=== PATIENT | female | born 1960 | race Caucasian/White ===

== ENCOUNTER 2016-07-25 10:09 | Emergency (ER) | payer SELFPAY ==
[~2016-07-25] VITALS: Ht 165.1 cm; Wt 65.9 kg
[~2016-07-25 10:09] MED LIST: CIPR500T4 PO; CYCL-36 PO
[2016-07-25 10:11] VITALS: BP 145/79; PULSE 88; RESP 20; TEMP 98.7; O2SAT 93
[2016-07-25] MEDS ORDERED: ATEN50TA PO (11:28)
[2016-07-25] MEDS ORDERED: LISI20TA PO (11:28)
[2016-07-25] MEDS ORDERED: LEVO50TA4 PO (11:28)
[2016-07-25] MEDS ORDERED: ALPR0.5T3 PO (11:28)
[2016-07-25] MEDS ORDERED: SODIUM CHLORIDE 0.9% FLUSH 5 ML FLUSH IVF PRN (11:30)
[2016-07-25 12:04] VITALS: O2SAT 95
[2016-07-25 12:06] LABS: AUTOMATED NEUTROPHIL # 2.9 TH/MM3 (1.8-7.7); BASOPHIL % 0.4 % (0.0-2.0); EOSINOPHIL % 0.6 % (0.0-4.0); HEMO FLAGS DIFF FINAL; LYMPH % 21.8 % (9.0-44.0); LYMPHOCYTE # 0.8 TH/MM3 (1.0-4.8); MEAN CELL VOLUME 93.8 FL (80.0-100.0); MEAN CORPUSCULAR HEMOGLOBIN 32.8 PG (27.0-34.0); MONO % 3.8 % (0.0-8.0); NEUT % 73.4 % (16.0-70.0); PLATELET COUNT 114 TH/MM3 (150-450); WHITE BLOOD COUNT 3.9 TH/MM3 (4.0-11.0)
--- NOTE | 2016-07-25 12:07 | PD ---
HPI Chief Complaint: Flank/Kidney Pain Time Seen by Provider: 11:39 Travel History International Travel<30 days: No Contact w/Intl Traveler<30days: No Traveled to known affect area: No History of Present Illness HPI 55-year-old female here with complaint of left-sided flank pain. For the last 5 days patient has had left-sided flank pain that radiates slightly into the left upper quadrant of the abdomen. No nausea, vomiting. She denies any urinary symptoms. Bowel movements have been regular. Patient states she was here around February 2016 and diagnosed with pyelonephritis and this feels fairly similar. She denies any history of ureterolithiasis. Pain is made worse with movement, patient does lift heavy boxes at work and this seems to be exacerbating her symptoms. No fevers or chills. PFSH Past Medical History Diminished Hearing: No Hepatitis: Yes (C) Hiatal Hernia: Yes Hypertension: Yes Thyroid Disease: Yes ?: Not Menopausal: Yes Past Surgical History Cholecystectomy: Yes Social History Alcohol Use: Yes (OCC) Tobacco Use: Yes Substance Use: No Allergies-Medications (Allergen,Severity, Reaction): Coded Allergies: Penicillin (Verified Allergy, Severe, Rash, 07/25/16) Reported Meds & Prescriptions Reported Meds & Active Scripts Active Reported Alprazolam 0.5 Mg Tab 0.5 Mg PO Q6H PRN Levothyroxine (Levothyroxine Sodium) 50 Mcg Tab 50 Mcg PO DAILY Atenolol 50 Mg Tab 50 Mg PO DAILY Lisinopril-Hctz 20-12.5 Mg Tab 1 Tab PO DAILY Review of Systems Except as stated in HPI: all other systems reviewed are Neg Physical Exam Narrative GENERAL: Thin female in no acute distress SKIN: Warm and dry. HEAD: Normocephalic. EYES: No scleral icterus. No injection or drainage. ENT: Mucous membranes pink and moist. NECK: Supple CARDIOVASCULAR: Regular rate and rhythm. No murmur appreciated. RESPIRATORY: No accessory muscle use. Clear to auscultation. Breath sounds equal bilaterally. GASTROINTESTINAL: Abdomen soft, non-tender, nondistended. Reproducible left- sided CVA tenderness to palpation, also made worse with movement. MUSCULOSKELETAL: No midline tenderness to palpation of the thoracic or lumbar spine. NEUROLOGICAL: Awake and alert. Normal speech. PSYCHIATRIC: Appropriate mood and affect; insight and judgment normal. Data Data Last Documented VS Vital Signs Date Time Temp Pulse Resp B/P Pulse Ox O2 Delivery O2 Flow Rate FiO2 07/25/16 12:04 95 07/25/16 10:11 98.7 88 20 145/79 Room Air Orders Complete Blood Count With Diff (07/25/16 11:23) Comprehensive Metabolic Panel (07/25/16 11:23) Lipase (07/25/16 11:23) Urinalysis - C+S If Indicated (07/25/16 11:23) Iv Access Insert/Monitor (07/25/16 11:23) Oximetry (07/25/16 11:23) Sodium Chloride 0.9% Flush (Ns Flush) (07/25/16 11:30) Ketorolac Inj (Toradol Inj) (07/25/16 12:15) Acetaminophen (Tylenol) (07/25/16 12:15) Labs Laboratory Tests Test 07/25/16 07/25/16 11:40 11:47 Urine Color YELLOW Urine Turbidity CLEAR Urine pH 7.5 Urine Specific [place] 1.018 Urine Protein NEG mg/dL Urine Glucose (UA) NEG mg/dL Urine Ketones NEG mg/dL Urine Occult Blood NEG Urine Nitrite NEG Urine Bilirubin NEG Urine Urobilinogen LESS THAN 2.0 MG/DL Urine Leukocyte Esterase NEG Urine RBC LESS THAN 1 /hpf Urine WBC LESS THAN 1 /hpf Urine Squamous Epithelial <1 /hpf Cells Microscopic Urinalysis Comment CULT NOT INDICATED White Blood Count 3.9 TH/MM3 Red Blood Count 4.80 MIL/MM3 Hemoglobin 15.8 GM/DL Hematocrit 45.0 % Mean Corpuscular Volume 93.8 FL Mean Corpuscular Hemoglobin 32.8 PG Mean Corpuscular Hemoglobin 35.0 % Concent Red Cell Distribution Width 15.0 % Platelet Count 114 TH/MM3 Mean Platelet Volume 8.3 FL Neutrophils (%) (Auto) 73.4 % Lymphocytes (%) (Auto) 21.8 % Monocytes (%) (Auto) 3.8 % Eosinophils (%) (Auto) 0.6 % Basophils (%) (Auto) 0.4 % Neutrophils # (Auto) 2.9 TH/MM3 Lymphocytes # (Auto) 0.8 TH/MM3 Monocytes # (Auto) 0.1 TH/MM3 Eosinophils # (Auto) 0.0 TH/MM3 Basophils # (Auto) 0.0 TH/MM3 CBC Comment DIFF FINAL Differential Comment Sodium Level 138 MEQ/L Potassium Level 3.5 MEQ/L Chloride Level 101 MEQ/L Carbon Dioxide Level 26.9 MEQ/L Anion Gap 10 MEQ/L Blood Urea Nitrogen 11 MG/DL Creatinine 0.76 MG/DL Estimat Glomerular Filtration 79 ML/MIN Rate Random Glucose 103 MG/DL Calcium Level 8.9 MG/DL Total Bilirubin 0.4 MG/DL Aspartate Amino Transf 44 U/L (AST/SGOT) Alanine Aminotransferase 14 U/L (ALT/SGPT) Alkaline Phosphatase 86 U/L Total Protein 7.5 GM/DL Albumin 3.7 GM/DL Lipase 165 U/L [facility] Medical Decision Making Medical Screen Exam Complete: Yes Emergency Medical Condition: Yes Medical Record Reviewed: Yes Differential Diagnosis 55-year-old female with 5 days of left-sided flank pain radiating slightly into the left upper quadrant. Differential includes ureterolithiasis, UTI/ pyelonephritis, musculoskeletal and less likely splenomegaly or and tripped abdominal pathology. Narrative Course Patient placed on monitor, IV established and blood obtained. Given Toradol, Tylenol. CBC, CMP, lipase, urinalysis obtained and unremarkable. We will treat with Tylenol, ibuprofen, Flexeril for musculoskeletal etiology. Diagnosis Primary Impression: Lumbar strain Qualified Code: S39.012A - Lumbar strain, initial encounter Referrals: Primary Care Physician as needed Additional Instructions: Tylenol, ibuprofen, Flexeril as needed. Follow-up with primary care provider symptoms persist and return to the ER for the warning signs discussed. Avoid heavy lifting. Med/Other Pt SpecificInfo: Prescription(s) given Scripts Cyclobenzaprine (Flexeril)10 Mg Tab10 Mg PO TID #15 TAB Ref 0 Prov:Zakiya Russell MD 07/25/16 Disposition: 01 DISCHARGE HOME Condition: Stable Zakiya Russell MD Jul 25, 2016 12:07
[2016-07-25 12:08] LABS: BLOOD, URINE NEG (NEG); GLUCOSE,URINE NEG (NEG); KETONE, URINE NEG (NEG); NITRITE,URINE NEG (NEG); PH, URINE 7.5 (5.0-8.5); SQUAMOUS EPITHELIAL CELL URINE <1 /hpf (0-5); URINE COLOR YELLOW (YELLW/STRAW)
[2016-07-25 12:11] LABS: COMMENT (UR) CULT NOT INDICATED; CULTURE IF INDICATED CULT NOT INDICATED
[2016-07-25] MEDS ORDERED: KETOROLAC TROMETHAMINE 30 MG/ML (IVP) VIAL IVP ONE (12:15)
[2016-07-25] MEDS ORDERED: ACETAMINOPHEN 500 MG CPLT PO ONE (12:15)
[2016-07-25 12:24] LABS: ANION GAP 10 MEQ/L (5-15); AST (GOT) 44 U/L (15-37); BICARBONATE 26.9 MEQ/L (21.0-32.0); BLOOD UREA NITROGEN 11 MG/DL (7-18); CHLORIDE 101 MEQ/L (98-107); GLOMERULAR FILTRATION RATE 79 ML/MIN (>89); POTASSIUM 3.5 MEQ/L (3.5-5.1); SODIUM (NA) 138 MEQ/L (136-145)
[2016-07-25 12:27] LABS: ALKALINE PHOSPHATASE 86 U/L (45-117); ALT (GPT) 14 U/L (10-53); TOTAL BILIRUBIN ADULT 0.4 MG/DL (0.2-1.0)
[2016-07-25] MEDS ORDERED: CYCL1TAB29 PO (12:43)
== END 2016-07-25 15:08 | disposition home or self-care (01) ==
LOC: NEPA 10:09
DX: S39.012A Strain of muscle, fascia and tendon of lower back, initial encounter (principal); I10 Essential (primary) hypertension; E07.9 Disorder of thyroid, unspecified; Z72.0 Tobacco use; Z86.19 Personal history of other infectious and parasitic diseases; X58.XXXA Exposure to other specified factors, initial encounter
CPT/HCPCS: 80053; 81001; 83690; 85025; 96374; 99284; J1885

== ENCOUNTER 2016-08-26 10:22 | Emergency (ER) | payer SELFPAY ==
[~2016-08-26] VITALS: Ht 165.1 cm; Wt 66.0 kg
[~2016-08-26 10:22] MED LIST changes: +ALPR0.5T3 PO; +ATEN50TA PO; -CIPR500T4 PO; -CYCL-36 PO; +CYCL1TAB29 PO; +LEVO50TA4 PO; +LISI20TA PO
[2016-08-26 10:24] VITALS: BP 156/97; PULSE 88; RESP 19; TEMP 97.6; O2SAT 95
[2016-08-26 10:56] VITALS: O2SAT 98
[2016-08-26] MEDS ORDERED: SODIUM CHLORIDE 0.9% FLUSH 10 ML FLUSH IV FLUSH PRN (11:00)
[2016-08-26] MEDS ORDERED: RESP: ALBUTEROL 2.5 MG/IPRATROPIUM 0.5 MG NEB (SCH) INH ONE ×2 (11:00→11:45)
[2016-08-26 11:09] LABS: AUTOMATED NEUTROPHIL # 2.8 TH/MM3 (1.8-7.7); BASOPHIL % 0.6 % (0.0-2.0); EOSINOPHIL # 0.1 TH/MM3 (0-0.4); EOSINOPHIL % 1.4 % (0.0-4.0); HEMATOCRIT 45.2 % (35.0-46.0); LYMPH % 44.4 % (9.0-44.0); LYMPHOCYTE # 2.6 TH/MM3 (1.0-4.8); MEAN CELL VOLUME 90.5 FL (80.0-100.0); MEAN CORPUSCULAR HEMOGLOBIN 31.6 PG (27.0-34.0); MEAN CORPUSCULAR HGB CONC 34.9 % (32.0-36.0); MONO % 4.7 % (0.0-8.0); NEUT % 48.9 % (16.0-70.0); PLATELET COUNT 87 TH/MM3 (150-450); RED BLOOD COUNT 4.99 MIL/MM3 (4.00-5.30); RED CELL DISTRIBUTION WIDTH 14.3 % (11.6-17.2); WHITE BLOOD COUNT 5.8 TH/MM3 (4.0-11.0)
[2016-08-26 11:14] LABS: HEMO FLAGS AUTO DIFF
[2016-08-26 11:18] LABS: BLOOD, URINE NEG (NEG); GLUCOSE,URINE NEG (NEG); KETONE, URINE NEG (NEG); NITRITE,URINE NEG (NEG); SQUAMOUS EPITHELIAL CELL URINE 1 /hpf (0-5); TRANSITIONAL EPI CELLS, URINE <1 /hpf; URINE COLOR LIGHT-YELLOW (YELLW/STRAW)
[2016-08-26 11:19] LABS: COMMENT (UR) CULT NOT INDICATED; CULTURE IF INDICATED CULT NOT INDICATED
--- NOTE | 2016-08-26 11:19 | PD ---
HPI Chief Complaint: Abdominal Pain Time Seen by Provider: 10:49 Travel History International Travel<30 days: No Contact w/Intl Traveler<30days: No Traveled to known affect area: No History of Present Illness HPI 55-year-old female with history of HTN, hepatitis C here with complaint of shortness of breath and abdominal pain. Patient states that she has been short of breath with primarily nonproductive cough and chest congestion for the last 2 weeks. Patient states that she has tried Mucinex without much improvement. Denies any history of underlying lung disease, COPD, CHF, etc. No associated fevers or chills. Additionally she notes 2 days of mild to moderate pain within the lower abdomen, describes this as pressure and fullness. No associated urinary, bowel symptoms. No vaginal bleeding or abnormal discharge. PFSH Past Medical History Anxiety: Yes Cardiovascular Problems: Yes (HTN) Diminished Hearing: No Hepatitis: Yes (C) Hiatal Hernia: Yes Hypertension: Yes Thyroid Disease: Yes Influenza Vaccination: No ?: Not Menopausal: Yes Past Surgical History Cholecystectomy: Yes Social History Alcohol Use: Yes (OCC) Tobacco Use: Yes Substance Use: No Allergies-Medications (Allergen,Severity, Reaction): Coded Allergies: Penicillin (Verified Allergy, Severe, Rash, 08/26/16) Reported Meds & Prescriptions Reported Meds & Active Scripts Active Reported Alprazolam 0.5 Mg Tab 0.5 Mg PO Q6H PRN Levothyroxine (Levothyroxine Sodium) 50 Mcg Tab 50 Mcg PO DAILY Atenolol 50 Mg Tab 50 Mg PO DAILY Lisinopril-Hctz 20-12.5 Mg Tab 1 Tab PO DAILY Review of Systems Except as stated in HPI: all other systems reviewed are Neg Physical Exam Narrative GENERAL: Well-appearing female in no acute distress SKIN: Focused skin assessment warm/dry. HEAD: Normocephalic. EYES: No scleral icterus. No injection or drainage. ENT: Mucous membranes pink and moist. NECK: Supple CARDIOVASCULAR: Regular rate and rhythm. No murmur appreciated. RESPIRATORY: No accessory muscle use. Expiratory wheezing GASTROINTESTINAL: Abdomen soft, mild tenderness to palpation of the lower abdomen without rebound or guarding MUSCULOSKELETAL: Normal gait NEUROLOGICAL: Awake and alert. Normal speech. PSYCHIATRIC: Appropriate mood and affect; insight and judgment normal. Data Data Last Documented VS Vital Signs Date Time Temp Pulse Resp B/P Pulse Ox O2 Delivery O2 Flow Rate FiO2 08/26/16 11:22 97 21 08/26/16 10:56 Room Air 08/26/16 10:24 97.6 88 19 156/97 Orders Complete Blood Count With Diff (08/26/16 10:55) Comprehensive Metabolic Panel (08/26/16 10:55) Lipase (08/26/16 10:55) Urinalysis - C+S If Indicated (08/26/16 10:55) Iv Access Insert/Monitor (08/26/16 10:55) Ecg Monitoring (08/26/16 10:55) Oximetry (08/26/16 10:55) Sodium Chloride 0.9% Flush (Ns Flush) (08/26/16 11:00) Electrocardiogram (08/26/16 10:55) Chest, Single Ap (08/26/16 10:55) Albuterol-Ipratropium Neb (Duoneb Neb) (08/26/16 11:00) Ct Pulmonary Angiogram (08/26/16 11:28) Ct Abd/Pel W Iv Contrast(Rout) (08/26/16 11:28) Albuterol-Ipratropium Neb (Duoneb Neb) (08/26/16 11:45) Iohexol 350 Inj (Omnipaque 350 Inj) (08/26/16 12:29) Case Management Consult (08/26/16 ) Labs Laboratory Tests Test 08/26/16 11:00 White Blood Count 5.8 TH/MM3 Red Blood Count 4.99 MIL/MM3 Hemoglobin 15.8 GM/DL Hematocrit 45.2 % Mean Corpuscular Volume 90.5 FL Mean Corpuscular Hemoglobin 31.6 PG Mean Corpuscular Hemoglobin 34.9 % Concent Red Cell Distribution Width 14.3 % Platelet Count 87 TH/MM3 Mean Platelet Volume 8.3 FL Neutrophils (%) (Auto) 48.9 % Lymphocytes (%) (Auto) 44.4 % Monocytes (%) (Auto) 4.7 % Eosinophils (%) (Auto) 1.4 % Basophils (%) (Auto) 0.6 % Neutrophils # (Auto) 2.8 TH/MM3 Lymphocytes # (Auto) 2.6 TH/MM3 Monocytes # (Auto) 0.3 TH/MM3 Eosinophils # (Auto) 0.1 TH/MM3 Basophils # (Auto) 0.0 TH/MM3 CBC Comment AUTO DIFF Differential Comment AUTO DIFF CONFIRMED Platelet Estimate LOW Platelet Morphology Comment NORMAL Red Cell Morphology Comment NORMAL Urine Color LIGHT-YELLOW Urine Turbidity HAZY Urine pH 6.0 Urine Specific [place] 1.014 Urine Protein NEG mg/dL Urine Glucose (UA) NEG mg/dL Urine Ketones NEG mg/dL Urine Occult Blood NEG Urine Nitrite NEG Urine Bilirubin NEG Urine Urobilinogen LESS THAN 2.0 MG/DL Urine Leukocyte Esterase NEG Urine RBC 1 /hpf Urine WBC 1 /hpf Urine Squamous Epithelial 1 /hpf Cells Urine Transitional Epithelial <1 /hpf Cells Microscopic Urinalysis Comment CULT NOT INDICATED Sodium Level 136 MEQ/L Potassium Level 4.3 MEQ/L Chloride Level 101 MEQ/L Carbon Dioxide Level 25.5 MEQ/L Anion Gap 10 MEQ/L Blood Urea Nitrogen 22 MG/DL Creatinine 0.78 MG/DL Estimat Glomerular Filtration 77 ML/MIN Rate Random Glucose 89 MG/DL Calcium Level 11.8 MG/DL Protein Corrected Calcium 10.9 MG/DL Total Bilirubin 0.4 MG/DL Aspartate Amino Transf 252 U/L (AST/SGOT) Alanine Aminotransferase 27 U/L (ALT/SGPT) Alkaline Phosphatase 138 U/L Total Protein 8.6 GM/DL Albumin 4.1 GM/DL Lipase 151 U/L [facility] Medical Decision Making Medical Screen Exam Complete: Yes Emergency Medical Condition: Yes Medical Record Reviewed: Yes Differential Diagnosis 55-year-old female here with 2 complaints. First she has had 2 weeks of shortness of breath with nonproductive cough. Some wheezing on exam. Patient is a smoker though denies known history of emphysema. Differential includes COPD, viral syndrome, pneumonia, bronchitis. Less likely new onset heart failure. Secondly she complains of 2 days of low pressure within the abdomen. All examination overall is benign making peritoneal pathology less likely. Differential includes UTI, diverticulitis, colitis, appendicitis. Narrative Course Patient placed on monitor, IV established and blood obtained. Patient given DuoNeb 2. Twelve-lead EKG showed sinus rhythm without notable ST abnormalities , normal intervals. Portable chest x-ray obtained that by my read shows right sided lung mass, radiologist measuring this approximately 7 cm. Given this PE is also on the differential. Therefore CT pulmonary angiogram and CT of the abdomen and pelvis with contrast were obtained showing perihilar mass and no evidence of PE or other metastatic lesions. On exam patient does have a supraclavicular node on the right that is concerning for possible metastasis. CBC, CMP, lipase, urinalysis notable for hypercalcemia mild. I spoke with radiology and case management was consulted and will coordinate outpatient CT- guided biopsy and mandatory referral was placed for heme on follow-up as well. Diagnosis Primary Impression: Lung mass Additional Impression: Shortness of breath Referrals: Oncologist call for appointment Patient Instructions: General Instructions, Lung Cancer (DC), Needle Biopsy of the Lung (DC) Additional Instructions: Albuterol as needed for shortness of breath. Follow-up for CT-guided biopsy of the lung mass as discussed with case management. Med/Other Pt SpecificInfo: Prescription(s) given Scripts Albuterol 18 GM Inh (Ventolin Hfa 18 GM Inh)90 Mcg/Act Aer2 Puff INH Q4H PRN ( SHORTNESS OF BREATH) #1 INHALER Ref 0 Prov:Zakiya Russell MD 08/26/16 Disposition: 01 DISCHARGE HOME Condition: Stable Zakiya Russell MD Aug 26, 2016 11:19
[2016-08-26 11:22] VITALS: O2SAT 97
--- NOTE | 2016-08-26 11:28 | RADRPT ---
EXAM DATE/TIME: 08/26/2016 11:04 [facility] COMPARISON: No previous studies available for comparison. INDICATIONS : Short of breath for 2 weeks, wheezing, pain in middle of chest, abdominal pain, smoker for 40 years MEDICAL HISTORY : Hepatitis C. Hiatal hernia. Hypertension. SURGICAL HISTORY : Cholecystectomy. ENCOUNTER: Initial ACUITY: 2 weeks PAIN SCORE: 4/10 LOCATION: Bilateral chest FINDINGS: There is enlarged mass present in the right infrahilar region. Left lung is clear. The heart and pul monary vascularity are normal. The portion of the bony skeleton visualized is unremarkable. CONCLUSION: Large 7 cm hilar mass on the right. CT scan of the chest with contrast is suggested. Bebeto Ramirez MD FACR on August 26, 2016 at 11:24 Board Certified Radiologist. This report was verified electronically.
[2016-08-26 11:36] LABS: BICARBONATE 25.5 MEQ/L (21.0-32.0); CALCIUM-PROTEIN CORRECTED 10.9 MG/DL (8.5-10.1); POTASSIUM 4.3 MEQ/L (3.5-5.1); TOTAL BILIRUBIN ADULT 0.4 MG/DL (0.2-1.0)
[2016-08-26] MEDS ORDERED: IOHEXOL 350 MG/ML 10 ML VIAL (for RAD DIAG) IV ONE (12:29)
[2016-08-26 12:40] LABS: PLATELET ESTIMATE SMEAR LOW (NORMAL); PLATELET MORPHOLOGY NORMAL (NORMAL); SCAN/DIFF AUTO DIFF CONFIRMED
--- NOTE | 2016-08-26 12:43 | RADRPT ---
EXAM DATE/TIME: 08/26/2016 12:22 [facility] COMPARISON: CT ABDOMEN & PELVIS W/O CONTRAST, February 25, 2016, 14:14. INDICATIONS : Short of breath. IV CONTRAST: 64 cc Omnipaque 350 (iohexol) IV ; Cumulative dose for multiple exams. RADIATION DOSE: 23.18 CTDIvol (mGy) MEDICAL HISTORY : Hypertension. Hernia, hiatal. Hepatitis C. SURGICAL HISTORY : None. ENCOUNTER: Initial ACUITY: 1 day PAIN SCALE: 0/10 LOCATION: chest TECHNIQUE: Volumetric scanning of the chest was performed using a pulmonary embolism protocol MIP images were re constructed. Using automated exposure control and adjustment of the mA and/or kV according to patien t size, radiation dose was kept as low as reasonably achievable to obtain optimal diagnostic quality images. FINDINGS: The examination is of good diagnostic quality. No pulmonary embolus is identified. The examination demonstrates a 7.1 x 8.8 cm mass arising from the right suprahilar region with extens ion into the mediastinum and subcarinal rosendo chain. There are numerous large nodes seen within the a nterior mediastinum. There is rosendo disease filling the AP window. Findings are highly suspicious for malignancy. The pulmonary parenchyma is otherwise clear. No pleural effusion is seen. The visualized bony structures demonstrate degenerative changes but are otherwise intact. The limited portions of upper abdomen visualized are unremarkable. CONCLUSION: 1. There is a 7.1 x 8.8 cm right suprahilar and mediastinal mass with extensive prevascular, AP windo w and anterior mediastinal adenopathy. Findings are highly suspicious for malignancy. 2. No pulmonary embolus identified. Nasir Ramirze MD on August 26, 2016 at 12:38 Board Certified Radiologist. This report was verified electronically.
[2016-08-26] MEDS ORDERED: VENTAER INH (12:55)
[2016-08-26] MEDS ORDERED: ALBU.5I NEB (12:59)
[2016-08-26] MEDS ORDERED: NEBULIZER1 MI1 (12:59)
[2016-08-26] MEDS ORDERED: ACETAMINOPHEN/HYDROcodone 325 MG/5 MG TAB PO ONE (13:00)
--- NOTE | 2016-08-26 13:16 | RADRPT ---
EXAM DATE/TIME: 08/26/2016 12:22 [facility] COMPARISON: CT PULMONARY ANGIOGRAM, August 26, 2016, 12:22. INDICATIONS : Lower quadrant abdominal pain. IV CONTRAST: 64 cc Omnipaque 350 (iohexol) IV ; Cumulative dose for multiple exams. ORAL CONTRAST: No oral contrast ingested. RADIATION DOSE: 6.18 CTDIvol (mGy) MEDICAL HISTORY : Hypertension. Hernia, hiatal. Hepatitis C. SURGICAL HISTORY : None. ENCOUNTER: Initial ACUITY: 1 day PAIN SCALE: 5/10 LOCATION: Bilateral lower quadrant TECHNIQUE: Volumetric scanning of the abdomen and pelvis was performed. Using automated exposure control and ad justment of the mA and/or kV according to patient size, radiation dose was kept as low as reasonably achievable to obtain optimal diagnostic quality images. FINDINGS: The lung bases are clear. Liver, spleen, pancreas, adrenals and kidneys are unremarkable. There is a small cyst measuring 1 cm in the left kidney. There is no ascites or adenopathy. Pelvic contents are unremarkable. Review of bone windows reveals degenerative changes in the lumbar spine. CONCLUSION: 1. Negative CT scan of the abdomen and pelvis. I do not see an etiology for the patient's lower quad rant abdominal pain. 2. Abnormal L4 vertebral body, non-specific. Bebeto Ramirez MD FACR on August 26, 2016 at 12:48 Board Certified Radiologist. This report was verified electronically.
[2016-08-26 13:25] VITALS: BP 154/90
--- NOTE | 2016-08-27 14:29 | EKG ---
Date Performed: 08/26/2016 Time Performed: 11:19:15 PTAGE: 55 years EKG: Sinus rhythm NORMAL ECG NO PREVIOUS TRACING DOCTOR: Geraldo Bhatti Interpretating Date/Time 08/27/2016 14:25:12
== END 2016-08-26 13:40 | disposition home or self-care (01) ==
LOC: NEPD 10:22
DX: R91.8 Other nonspecific abnormal finding of lung field (principal); R06.02 Shortness of breath; R10.30 Lower abdominal pain, unspecified; R05 Cough; R06.2 Wheezing; I10 Essential (primary) hypertension; E07.9 Disorder of thyroid, unspecified; Z72.0 Tobacco use; Z86.19 Personal history of other infectious and parasitic diseases; Z86.79 Personal history of other diseases of the circulatory system; Z86.59 Personal history of other mental and behavioral disorders
CPT/HCPCS: 71010; 71275; 74177; 80053; 81001; 83690; 85025; 93005; 94640; 94664; 99285; Q9967

== ENCOUNTER 2016-09-09 08:04 | Inpatient (IN) | payer SELFPAY ==
[~2016-09-09] VITALS: Ht 165.1 cm; Wt 62.5 kg
[2016-09-09] VITALS (9 sets, daily range): BP systolic 97–173; BP diastolic 56–104; PULSE 70–101; RESP 19–28; TEMP 96.3–97.6; O2SAT 96–99
[~2016-09-09 08:04] MED LIST changes: +ALBU.5I NEB; -CYCL1TAB29 PO; +NEBULIZER1 MI1; +VENTAER INH
[2016-09-09 08:20] LABS: MEAN CORPUSCULAR HGB CONC 36.4 % (32.0-36.0)
[2016-09-09] MEDS ORDERED: SODIUM CHLORIDE 0.9% FLUSH 10 ML FLUSH IVF PRN (08:30)
[2016-09-09] MEDS ORDERED: methylPREDNISolone SOD SUCC 125 MG/2 ML VIAL IVP ONE (08:30)
[2016-09-09] MEDS: RESP: ALBUTEROL 2.5 MG/IPRATROPIUM 0.5 MG NEB (SCH) INH ×2 (08:31→08:32)
[2016-09-09 08:37] LABS: BASOPHIL % 0.9 % (0.0-2.0); EOSINOPHIL # 0.1 TH/MM3 (0-0.4); EOSINOPHIL % 1.3 % (0.0-4.0); HEMATOCRIT 34.3 % (35.0-46.0); LYMPH % 56.2 % (9.0-44.0); MEAN CELL VOLUME 89.5 FL (80.0-100.0); MEAN CORPUSCULAR HEMOGLOBIN 32.6 PG (27.0-34.0); MONO % 3.6 % (0.0-8.0); PLATELET COUNT 73 TH/MM3 (150-450); RED BLOOD COUNT 3.83 MIL/MM3 (4.00-5.30); RED CELL DISTRIBUTION WIDTH 13.8 % (11.6-17.2); WHITE BLOOD COUNT 5.3 TH/MM3 (4.0-11.0)
[2016-09-09 08:38] LABS: HEMO FLAGS AUTO DIFF
--- NOTE | 2016-09-09 08:38 | RADRPT ---
EXAM DATE/TIME: 09/09/2016 08:29 [facility] COMPARISON: CHEST SINGLE AP, August 26, 2016, 11:04. CT PULMONARY ANGIOGRAM, August 26, 2016, 12:22. INDICATIONS : Shortness of breath and chest pain. MEDICAL HISTORY : Chronic obstructive pulmonary disease. SURGICAL HISTORY : None. ENCOUNTER: Initial ACUITY: 2 days PAIN SCORE: 10/10 LOCATION: Bilateral chest FINDINGS: Significant mediastinum adenopathy and right hilar mass is identified with tiny lung nodules not sign ificantly changed. CONCLUSION: No appreciable change. Dimitri Mills MD on September 09, 2016 at 8:35 Board Certified Radiologist. This report was verified electronically.
--- NOTE | 2016-09-09 08:43 | PD ---
HPI Chief Complaint: Respiratory Distress Time Seen by Provider: 08:15 Travel History International Travel<30 days: No Contact w/Intl Traveler<30days: No Traveled to known affect area: No History of Present Illness HPI 55-year-old female presents with shortness of breath and chest pain that has been present over the past month that is worsened over the past couple of days. She states her breathing treatments used to help her but now they do not. She states she just got diagnosed about a month ago with likely lung cancer and is awaiting a biopsy with her oncologist Dr. hand. She states she has not started chemotherapy yet. She states that she also just got diagnosed with emphysema. She states that she hasn't been having any fevers or other concurrent complaints. She feels worse when she moves around. She denies other modifying factors. PFSH Past Medical History Anxiety: Yes Cardiovascular Problems: Yes (HTN) Diminished Hearing: No Hepatitis: Yes (C) Hiatal Hernia: Yes Hypertension: Yes Respiratory: Yes Thyroid Disease: Yes Menopausal: Yes Past Surgical History Cholecystectomy: Yes Social History Alcohol Use: Yes (OCC) Tobacco Use: Yes Substance Use: No Allergies-Medications (Allergen,Severity, Reaction): Coded Allergies: Penicillin (Verified Allergy, Severe, Rash, 08/26/16) Reported Meds & Prescriptions Reported Meds & Active Scripts Active Nebulizer 1 Mis Mis 1 Ea .ROUTE DIRECTED Albuterol Neb (Albuterol Sulfate) 2.5 Mg/0.5 Ml Neb 2.5 Mg NEB TID NEB PRN Note: The Albuterol Sulfate Inhalation Solution is concentrated and must be diluted. Read complete instructions carefully before using. Ventolin Hfa 18 GM Inh (Albuterol Sulfate) 90 Mcg/Act Aer 2 Puff INH Q4H PRN Reported Alprazolam 0.5 Mg Tab 0.5 Mg PO Q6H PRN Levothyroxine (Levothyroxine Sodium) 50 Mcg Tab 50 Mcg PO DAILY Atenolol 50 Mg Tab 50 Mg PO DAILY Lisinopril-Hctz 20-12.5 Mg Tab 1 Tab PO DAILY Review of Systems Except as stated in HPI: all other systems reviewed are Neg Physical Exam Narrative GENERAL: Well-nourished, well-developed patient. SKIN: Warm and dry. HEAD: Normocephalic and atraumatic. EYES: No injection or drainage. ENT: No nasal drainage noted. NECK: Supple, trachea midline. CARDIOVASCULAR: Regular rate and rhythm RESPIRATORY: decreased aeration bilaterally. No accessory muscle use. tachypnea noted GASTROINTESTINAL: Abdomen soft, non-tender, nondistended. EXTREMITIES: No edema. NEUROLOGICAL: Awake and alert. Motor and sensory grossly within normal limits. Normal speech. Data Data Last Documented VS Vital Signs Date Time Temp Pulse Resp B/P Pulse Ox O2 Delivery O2 Flow Rate FiO2 09/09/16 08:31 97 Nasal Cannula 2.00 09/09/16 08:15 93 24 156/83 09/09/16 08:08 97.6 Orders Electrocardiogram (09/09/16 ) Complete Blood Count With Diff (09/09/16 08:18) Comprehensive Metabolic Panel (09/09/16 08:18) B-Type Natriuretic Peptide (09/09/16 08:18) Act Partial Throm Time (Ptt) (09/09/16 08:18) Prothrombin Time / Inr (Pt) (09/09/16 08:18) Magnesium (Mg) (09/09/16 08:18) Ckmb (Isoenzyme) Profile (09/09/16 08:18) Troponin I (09/09/16 08:18) Iv Access Insert/Monitor (09/09/16 08:18) Ecg Monitoring (09/09/16 08:18) Oximetry (09/09/16 08:18) Chest, Single Ap (09/09/16 08:18) Sodium Chloride 0.9% Flush (Ns Flush) (09/09/16 08:30) Ct Pulmonary Angiogram (09/09/16 08:24) Methylprednisolone So Succ Inj (Solumedr (09/09/16 08:30) Albuterol-Ipratropium Neb (Duoneb Neb) (09/09/16 08:30) CKMB (09/09/16 08:21) CKMB% (09/09/16 08:21) Iohexol 350 Inj (Omnipaque 350 Inj) (09/09/16 09:47) Place In Observation (09/09/16 ) Vital Signs (Adult) Q4H (09/09/16 10:44) Activity Oob With Assistance (09/09/16 10:44) Diet Regular Basic (09/09/16 Lunch) Sodium Chloride 0.9% Flush (Ns Flush) (09/09/16 10:45) Sodium Chloride 0.9% Flush (Ns Flush) (09/09/16 21:00) Ondansetron Inj (Zofran Inj) (09/09/16 10:45) Basic Metabolic Panel (Bmp) (09/10/16 06:00) Complete Blood Count With Diff (09/10/16 06:00) Enoxaparin Inj (Lovenox Inj) (09/09/16 10:45) Naloxone Inj (Narcan Inj) (09/09/16 10:45) Admit Order (Ed Use Only) (09/09/16 10:46) Methylprednisolone So Succ Inj (Solumedr (09/09/16 12:00) Albuterol-Ipratropium Neb (Duoneb Neb) (09/09/16 12:00) Albuterol-Ipratropium Neb (Duoneb Neb) (09/09/16 11:00) Labs Laboratory Tests Test 09/09/16 08:21 White Blood Count 5.3 TH/MM3 Red Blood Count 3.83 MIL/MM3 Hemoglobin 12.5 GM/DL Hematocrit 34.3 % Mean Corpuscular Volume 89.5 FL Mean Corpuscular Hemoglobin 32.6 PG Mean Corpuscular Hemoglobin 36.4 % Concent Red Cell Distribution Width 13.8 % Platelet Count 73 TH/MM3 Mean Platelet Volume 8.0 FL Neutrophils (%) (Auto) 38.0 % Lymphocytes (%) (Auto) 56.2 % Monocytes (%) (Auto) 3.6 % Eosinophils (%) (Auto) 1.3 % Basophils (%) (Auto) 0.9 % Neutrophils # (Auto) 2.0 TH/MM3 Lymphocytes # (Auto) 3.0 TH/MM3 Monocytes # (Auto) 0.2 TH/MM3 Eosinophils # (Auto) 0.1 TH/MM3 Basophils # (Auto) 0.0 TH/MM3 CBC Comment AUTO DIFF Differential Total Cells 100 Counted Neutrophils % (Manual) 24 % Band Neutrophils % 7 % Lymphocytes % 52 % Monocytes % 9 % Neutrophils # (Manual) 2.1 TH/MM3 Metamyelocytes 5 % Myelocytes 3 % Nucleated Red Blood Cells 7 /100 WBC Differential Comment FINAL DIFF MANUAL Platelet Estimate LOW Platelet Morphology Comment NORMAL Red Cell Morphology Comment NORMAL Prothrombin Time 11.3 SEC Prothromb Time International 1.0 RATIO Ratio Activated Partial 23.5 SEC Thromboplast Time Sodium Level 133 MEQ/L Potassium Level 3.4 MEQ/L Chloride Level 97 MEQ/L Carbon Dioxide Level 26.6 MEQ/L Anion Gap 9 MEQ/L Blood Urea Nitrogen 20 MG/DL Creatinine 0.67 MG/DL Estimat Glomerular Filtration 91 ML/MIN Rate Random Glucose 85 MG/DL Calcium Level 8.5 MG/DL Magnesium Level 1.7 MG/DL Total Bilirubin 0.5 MG/DL Aspartate Amino Transf 348 U/L (AST/SGOT) Alanine Aminotransferase 34 U/L (ALT/SGPT) Alkaline Phosphatase 165 U/L Total Creatine Kinase 872 U/L Creatine Kinase MB 0.7 NG/ML Creatine Kinase MB % 0.1 % Troponin I LESS THAN 0.02 NG/ML B-Type Natriuretic Peptide 32 PG/ML Total Protein 7.8 GM/DL Albumin 3.6 GM/DL MDM Medical Decision Making Medical Screen Exam Complete: Yes Emergency Medical Condition: Yes Medical Record Reviewed: Yes (pmh confirmed) Interpretation(s) CBC & BMP Diagram 09/09/16 08:21 Last [address] Angiography 09/09/16823 Signed Impressions: Service Date/Time: Friday, September 09, 2016 09:34 - CONCLUSION: 1. There is no evidence for PE for technique. 2. Complete occlusion of the right upper lobe pulmonary artery due to extrinsic mass effect from metastatic adenopathy. There is also slight compromise to the right lower lobe pulmonary artery. 3. Multiple lung nodules characteristic of metastatic disease. 4. Extensive metastatic adenopathy within the mediastinum, right supraclavicular area and possible small metastatic lymph nodes in the gastroesophageal junction and upper abdomen. 5. Right hilar mass difficult to separate from the above-mentioned adenopathy may be the site of the patient's primary malignancy. Dimitri Mills MD Chest X-Ray 09/09/16817 Signed Impressions: Service Date/Time: Friday, September 09, 2016 08:29 - CONCLUSION: No appreciable change. Dimitri Mills MD Differential Diagnosis pneumonia, copd, anemia, renal failure, pe.... Narrative Course will check labs, imaging and dose with solumedrol and duonebs and reeval patient updated, still with tachypnea, wheezing and 92% on room air. We'll discuss with her oncologist Patient agrees to observation Physician Communication Physician Communication dr christianson agrees to admit dr hand gave history and agrees to observation Diagnosis Primary Impression: Shortness of breath Additional Impressions: COPD (chronic obstructive pulmonary disease) Qualified Code: J44.1 - Chronic obstructive pulmonary disease with acute exacerbation Lung mass Admitting Information Admitting Physician Requests: Observation Christy Amato MD Sep 09, 2016 08:43
[2016-09-09 08:44] LABS: APTT (PATIENT) 23.5 SEC (24.3-30.1); PROTHROMBIN TIME - PATIENT 11.3 SEC (9.8-11.6)
[2016-09-09 08:58] LABS: ALT (GPT) 34 U/L (10-53); ANION GAP 9 MEQ/L (5-15); AST (GOT) 348 U/L (15-37); BICARBONATE 26.6 MEQ/L (21.0-32.0); BLOOD UREA NITROGEN 20 MG/DL (7-18); CHLORIDE 97 MEQ/L (98-107); GLOMERULAR FILTRATION RATE 91 ML/MIN (>89); MAGNESIUM 1.7 MG/DL (1.5-2.5); POTASSIUM 3.4 MEQ/L (3.5-5.1); SODIUM (NA) 133 MEQ/L (136-145)
[2016-09-09 09:03] LABS: ALKALINE PHOSPHATASE 165 U/L (45-117); CREATINE KINASE 872 U/L (26-192); TOTAL BILIRUBIN ADULT 0.5 MG/DL (0.2-1.0)
[2016-09-09 09:16] LABS: CKMB 0.7 NG/ML (0.5-3.6)
[2016-09-09 09:23] LABS: BANDS 7 % (0-6); CORRECTED NUCLEATED RBC 7 /100 WBC (0-0); METAMYELOCYTES 5 % (0-1); MYELOCYTES 3 % (0-0); NEUTROPHIL # MANUAL DIFF 2.1 TH/MM3 (1.8-7.7); POLYS (SEG NEUTROPHILS) 24 % (16-70); WBC DIFF SAMPLE 100
[2016-09-09 09:24] LABS: PLATELET ESTIMATE SMEAR LOW (NORMAL); PLATELET MORPHOLOGY NORMAL (NORMAL); SCAN/DIFF FINAL DIFF MANUAL
[2016-09-09] MEDS ORDERED: IOHEXOL 350 MG/ML 10 ML VIAL (for RAD DIAG) IV ONE (09:47)
--- NOTE | 2016-09-09 10:07 | RADRPT ---
EXAM DATE/TIME: 09/09/2016 09:34 [facility] COMPARISON: CT PULMONARY ANGIOGRAM, August 26, 2016, 12:22. CHEST SINGLE AP, September 09, 2016, 8:29. INDICATIONS : Short of breath, evaluate for pulmonary embolism. IV CONTRAST: 59 cc Omnipaque 350 (iohexol) IV RADIATION DOSE: 8.03 CTDIvol (mGy) MEDICAL HISTORY : Hypertension. Hepatitis C. Carcinoma, lung. SURGICAL HISTORY : Cholecystectomy. ENCOUNTER: Initial ACUITY: 1 day PAIN SCALE: 2/10 LOCATION: chest TECHNIQUE: Volumetric scanning of the chest was performed using a pulmonary embolism protocol MIP images were re constructed. Using automated exposure control and adjustment of the mA and/or kV according to patien t size, radiation dose was kept as low as reasonably achievable to obtain optimal diagnostic quality images. FINDINGS: There is extensive right supraclavicular adenopathy the largest one measures 3.2 cm in size bk acteristic of metastatic disease. There is extensive adenopathy within the mediastinum including the superior mediastinum, AP window the largest area measures 9.4 cm probably conglomerate metastatic martin nopathy in pretracheal area and partially right hilar mass. Approximate 3.8 cm lymph node is seen in subcarinal area with matted adenopathy and/or mass in the right hilum. Multiple lung nodules are pres ent bilaterally the largest on the right measures 8 mm in size characteristic of metastatic disease. There is no evidence for PE for technique. There is however almost complete occlusion of the right up per lobe pulmonary artery due to extrinsic mass effect from the above-mentioned adenopathy with mild to moderate stenosis of the right pulmonary artery. There are a few small subcentimeter lymph nodes i n the region of the gastroesophageal junction and upper abdomen indeterminant, however could be metas tatic as well. CONCLUSION: 1. There is no evidence for PE for technique. 2. Complete occlusion of the right upper lobe pulmonary artery due to extrinsic mass effect from meta static adenopathy. There is also slight compromise to the right lower lobe pulmonary artery. 3. Multiple lung nodules characteristic of metastatic disease. 4. Extensive metastatic adenopathy within the mediastinum, right supraclavicular area and possible sm all metastatic lymph nodes in the gastroesophageal junction and upper abdomen. 5. Right hilar mass difficult to separate from the above-mentioned adenopathy may be the site of the patient's primary malignancy. Dimitri Mills MD on September 09, 2016 at 9:58 Board Certified Radiologist. This report was verified electronically.
[2016-09-09] MEDS ORDERED: SODIUM CHLORIDE 0.9% FLUSH 10 ML FLUSH IV FLUSH PRN (10:45)
[2016-09-09] MEDS ORDERED: NALOXONE HCL 0.4 MG/ML AMP IV PRN (10:45)
[2016-09-09] MEDS ORDERED: ONDANSETRON HCL 4 MG/2 ML VIAL IVP PRN (10:45)
[2016-09-09] MEDS ORDERED: ALPRAZolam 0.5 MG TAB PO PRN (11:00)
[2016-09-09] MEDS ORDERED: PILL SPLITTER OTHER PRN (11:15)
[2016-09-09] MEDS: POTASSIUM CHLORIDE 10 MEQ CONTROLLED RELEASE TAB PO SCH ×2 (11:19→22:16)
[2016-09-09] MEDS: RESP: ALBUTEROL 2.5 MG/IPRATROPIUM 0.5 MG NEB (SCH) NEB ×3 (11:39→20:26)
[2016-09-09] MEDS ORDERED: HYDR-4107 PO (12:34)
[2016-09-09] MEDS: ENOXAPARIN SODIUM 40 MG/0.4 ML SYRINGE SQ SCH (12:35)
--- NOTE | 2016-09-09 14:41 | HP.UPD ---
H&P Update Note This is a 55 year-old female who quit smoking recently. She has what appears to be metastatic malignancy involving at least her lungs, right supraclavicular region, lumbar spine. She was brought into the emergency department at [facility] for difficulty breathing. She was seen by the undersigned in room 710. She was ordered to have IV steroids, IV analgesics, supplemental oxygen and tranquilizers. She is due to have a biopsy of her right supraclavicular lymphadenopathy next week which is to take place during this admission. Her oncologist Dr. Frey is consulted. Full history and physical to follow Tanner Valdez MD Sep 09, 2016 14:38
[2016-09-09] MEDS: SERTRALINE HCL 50 MG TAB PO SCH ×2 (14:45→18:56)
[2016-09-09] MEDS ORDERED: ALPRAZolam 0.25 MG TAB PO PRN (14:45)
--- NOTE | 2016-09-09 15:09 | HHI.HP ---
[facility] Chema Carrillo, DO Admission Diagnosis lung cancer, copd exacerbation Diagnoses: Chief Complaint: sob, wheezing, back and leg pain, weakness Travel History International Travel<30 Days: No Contact w/Intl Traveler <30 Da: No Traveled to Known Affected Are: No History of Present Illness This is an unfortunate 55-year-old female with significant past medical history of tobacco abuse, hepatitis C recently treated, hypothyroid, hypertension. Patient has been recently diagnosed with a lung mass, with possible bone metastases. Approximately a month ago, she started to complain of low back pain when she went to the emergency room had a CT scan done that showed a large mediastinal mass and right supraclavicular mass as well as a L4 lesion. She followed up with Dr. Frey who has ordered further workup to include lymph node biopsy, PET scan and brain MRI. Patient states she has been having back pain, radiating to legs associated with weakness. Since yesterday, the pain has become severe, she is not sleeping well. She's had very little appetite has had some nausea and vomiting. She recently quit smoking and possibly has underlying COPD. She's noted increased wheezing with cough but very little sputum. She's had chills but no fever. Patient presented to the emergency room for further evaluation. In the emergency room, patient was evaluated, laboratory workup was completed. CBC was remarkable for thrombocytopenia, platelets 73. BMP remarkable for mild hyponatremia, sodium 133, potassium 3.4. AST 348, ALT 34, alkaline phosphatase was 65. Total creatinine kinase A 72. Natruretic peptide 32. A CTA was completed that showed no evidence of PE however complete occlusion of right upper lobe pulmonary artery due to extrinsic mass effect from metastatic adenopathy. There is also slight compromise to the right lower lobe pulmonary artery. Multiple lung nodules characteristics of metastatic disease. Extensive metastatic adenopathy within the mediastinum, right supraclavicular area and possibly small metastatic lymph nodes in the GE junction and upper abdomen. Right heel or mass difficult to separate from the above-mentioned adenopathy may be the site of the patient's primary malignancy. A chest x-ray didn't show any appreciable change. Patient was given DuoNeb's and IV steroids. She's now examined, she is complaining of pain, is very anxious. She is complaining of pain radiating from her left axilla done to the left hand and has some numbness and tingling of the left hand pinky finger and fourth finger. Indicates that sometimes his symptoms are worse when she turns her head to the right. She denies any recent injury. She has some mild neck discomfort. She is noted with weakness to the lower extremities, right leg is weaker than left. She has been having trouble walking around. Patient is now admitted for further evaluation and treatment. Review of Systems Constitutional: COMPLAINS OF: Chills, Change in appetite, DENIES: Diaphoretic episodes, Fatigue, Fever, Weight gain, Weight loss, Dizziness, Night Sweats Endocrine: DENIES: Abnorml menstrual pattern, Heat/cold intolerance, Polydipsia , Polyuria, Polyphagia Eyes: DENIES: Blurred vision, Diplopia, Eye inflammation, Eye pain, Vision loss , Photosensitivity, Double Vision Ears, nose, mouth, throat: DENIES: Tinnitus, Hearing loss, Vertigo, Nasal discharge, Oral lesions, Throat pain, Hoarseness, Ear Pain, Running Nose, Epistaxis, Sinus Pain, Toothache, Odynophagia Respiratory: COMPLAINS OF: Cough, Wheezing, Sputum production, Shortness of breath, DENIES: Apneas, Snoring, Hemoptysis Cardiovascular: DENIES: Chest pain, Palpitations, Syncope, Dyspnea on Exertion , PND, Lower Extremity Edema, Orthopnea, Claudication Gastrointestinal: DENIES: Abdominal pain, Black stools, Bloody stools, Constipation, Diarrhea, Nausea, Vomiting, Difficulty Swallowing, Anorexia Genitourinary: DENIES: Abnormal vaginal bleeding, Dysmenorrhea, Dyspareunia, Sexual dysfunction, Urinary frequency, Urinary incontinence, Urgency, Hematuria , Dysuria, Nocturia, Vaginal discharge Musculoskeletal: COMPLAINS OF: Joint pain, Back pain, Neck pain Integumentary: DENIES: Abnormal pigmentation, Pruritus, Rash, Nail changes, Breast masses, Breast skin changes, Nipple discharge Hematologic/lymphatic: DENIES: Bruising, Lymphadenopathy Immunologic/allergic: DENIES: Eczema, Urticaria Neurologic: COMPLAINS OF: Abnormal gait, Localized weakness, Paresthesias, DENIES: Headache, Seizures, Speech Problems, Tremor, Poor Balance Psychiatric: COMPLAINS OF: Anxiety, DENIES: Confusion, Mood changes, Depression, Hallucinations, Agitation, Suicidal Ideation, Homicidal Ideation, Delusions Past Family Social History Past Medical History HTN Hep C underwent treatment Feb 2016 to May 2016, was told that last lab did not show hep C. Was seeing Dr. Blevins Hypothyroid Anxiety COPD Tobacco abuse ETOH abuse Hiatal hernia Past Surgical History Cholecystectomy Right shoulder surgery Right ankle surgery Liver biopsy 2011 Colonoscopy 2009 Reported Medications Reported Meds & Active Scripts Active Nebulizer 1 Mis Mis 1 Ea .ROUTE DIRECTED Albuterol Neb (Albuterol Sulfate) 2.5 Mg/0.5 Ml Neb 2.5 Mg NEB TID NEB PRN Note: The Albuterol Sulfate Inhalation Solution is concentrated and must be diluted. Read complete instructions carefully before using. Ventolin Hfa 18 GM Inh (Albuterol Sulfate) 90 Mcg/Act Aer 2 Puff INH Q4H PRN Reported Hydrocodone-Acetaminophen 5-300 Mg Tab 1 Tab PO Q6H PRN Alprazolam 0.5 Mg Tab 0.5 Mg PO Q6H PRN Levothyroxine (Levothyroxine Sodium) 50 Mcg Tab 50 Mcg PO DAILY Atenolol 50 Mg Tab 50 Mg PO DAILY Lisinopril-Hctz 20-12.5 Mg Tab 1 Tab PO DAILY Allergies: Coded Allergies: Penicillin (Verified Allergy, Severe, Rash, 08/26/16) Active Ordered Medications Inpatient Medications Albuterol/ Ipratropium (Duoneb Neb) 1 ampule Q4HR NEB PRN NEB SHORTNESS OF BREATH; Start 09/09/16 at 11:00 Alprazolam (Xanax) 0.25 mg Q4H PRN PO anxiety; Start 09/09/16 at 14:45 Atenolol (Tenormin) 50 mg DAILY PO ; Start 09/09/16 at 15:00 Clonidine (Catapres) 0.1 mg Q6H PRN PO SBP>160, DBP>90; Start 09/09/16 at 14:00 Enoxaparin Sodium (Lovenox Inj) 40 mg Q24H SQ Last administered on 09/09/16t 12 :35; Start 09/09/16 at 12:00 Fentanyl (Duragesic 50 Mcg Patch.72 Hr) 1 patch Q3D T-DERMAL ; Start 09/09/16 at 16:00 Hydrochlorothiazide (Hydrodiuril) 12.5 mg DAILY PO ; Start 09/10/16 at 09:00; Stop 09/10/16 at 09:00; Status DC Hydrochlorothiazide (Microzide) 12.5 mg DAILY PO ; Start 09/09/16 at 15:00 Hydromorphone HCl (Dilaudid Pf Inj) 0.5 mg Q3H PRN IV PUSH pain 4-10; Start at 14:45; Status UNV Levothyroxine Sodium (Synthroid) 50 mcg DAILY@0600 PO ; Start 09/10/16 at 06:00 Lisinopril (Prinivil) 20 mg DAILY PO ; Start 09/09/16 at 15:00 Methylprednisolone Sodium Succinate (SoluMEDROL INJ) 125 mg Q6H IV PUSH ; Start 09/09/16 at 14:00 Miscellaneous (Pill Splitter) 1 ea UNSCH PRN OTHER SEE LABEL COMMENTS; Start at 11:15 Naloxone HCl (Narcan Inj) 0.4 mg UNSCH PRN IV SEE LABEL COMMENTS; Start at 10:45 Ondansetron HCl (Zofran Inj) 4 mg Q6H PRN IVP NAUSEA OR VOMITING; Start at 10:45 Potassium Chloride (KCl) 30 meq Q12HR PO Last administered on 09/09/16t 11:19; Start 09/09/16 at 11:00 Sertraline HCl (Zoloft) 25 mg DAILY PO ; Start 09/09/16 at 14:45; Status UNV Sodium Chloride (NS Flush) 2 ml BID IV FLUSH ; Start 09/09/16 at 21:00 Family History Mother alive, lives in [place], hx dementia Father , poss. lung cancer Social History Lives with significant other, has 3 grown children. Smokes 1 ppd x 40 years, occ. smokes 1 cigarette, quit a few days ago. Used to drink heavily, one bottle of wine or more per week, last drink 3 months ago. No substance abuse. Was working at a factory. Physical Exam Vital Signs Vital Signs Date Time Temp Pulse Resp B/P Pulse Ox O2 Delivery O2 Flow Rate FiO2 09/09/16 13:30 96.3 100 27 173/100 96 09/09/16 12:35 100 22 155/91 96 Nasal Cannula 2 09/09/16 08:31 97 Nasal Cannula 2.00 09/09/16 08:15 93 24 156/83 99 Nasal Cannula 2 09/09/16 08:13 93 24 96 Nasal Cannula 2 09/09/16 08:08 97.6 93 28 170/87 96 Physical Exam GENERAL: This is a well-nourished, well-developed patient, in no apparent distress. SKIN: No rashes, ecchymoses or lesions. Cool and dry. HEAD: Atraumatic. Normocephalic. No temporal or scalp tenderness. EYES: Pupils equal round and reactive. Extraocular motions intact. No scleral icterus. No injection or drainage. ENT: Nose without bleeding, purulent drainage or septal hematoma. Throat without erythema, tonsillar hypertrophy or exudate. Uvula midline. Airway patent. NECK: Trachea midline. Right supraclavicular lymphadenopathy. Supple, nontender , no meningeal signs. CARDIOVASCULAR: Regular rate and rhythm without murmurs, gallops, or rubs. RESPIRATORY: Diffuse coarse ronchi and wheezing. GASTROINTESTINAL: Abdomen soft, non-tender, nondistended. No hepato-splenomegaly , or palpable masses. No guarding. MUSCULOSKELETAL: Extremities without clubbing, cyanosis, or edema. No joint tenderness, effusion, or edema noted. No calf tenderness. Negative Homans sign bilaterally. NEUROLOGICAL: Awake, oriented x 3. Right lower extremity weaker than left 3-4/5 , LLE 4/5. BUE 5/5. C/O tingling left hand pinky and 4th phalanx. Laboratory Laboratory Tests Test 09/09/16 08:21 White Blood Count 5.3 Red Blood Count 3.83 Hemoglobin 12.5 Hematocrit 34.3 Mean Corpuscular Volume 89.5 Mean Corpuscular Hemoglobin 32.6 Mean Corpuscular Hemoglobin 36.4 Concent Red Cell Distribution Width 13.8 Platelet Count 73 Mean Platelet Volume 8.0 Neutrophils (%) (Auto) 38.0 Lymphocytes (%) (Auto) 56.2 Monocytes (%) (Auto) 3.6 Eosinophils (%) (Auto) 1.3 Basophils (%) (Auto) 0.9 Neutrophils # (Auto) 2.0 Lymphocytes # (Auto) 3.0 Monocytes # (Auto) 0.2 Eosinophils # (Auto) 0.1 Basophils # (Auto) 0.0 CBC Comment AUTO DIFF Differential Total Cells 100 Counted Neutrophils % (Manual) 24 Band Neutrophils % 7 Lymphocytes % 52 Monocytes % 9 Neutrophils # (Manual) 2.1 Metamyelocytes 5 Myelocytes 3 Nucleated Red Blood Cells 7 Differential Comment FINAL DIFF MANUAL Platelet Estimate LOW Platelet Morphology Comment NORMAL Red Cell Morphology Comment NORMAL Prothrombin Time 11.3 Prothromb Time International 1.0 Ratio Activated Partial 23.5 Thromboplast Time Sodium Level 133 Potassium Level 3.4 Chloride Level 97 Carbon Dioxide Level 26.6 Anion Gap 9 Blood Urea Nitrogen 20 Creatinine 0.67 Estimat Glomerular Filtration 91 Rate Random Glucose 85 Calcium Level 8.5 Magnesium Level 1.7 Total Bilirubin 0.5 Aspartate Amino Transf 348 (AST/SGOT) Alanine Aminotransferase 34 (ALT/SGPT) Alkaline Phosphatase 165 Total Creatine Kinase 872 Creatine Kinase MB 0.7 Creatine Kinase MB % 0.1 Troponin I LESS THAN 0.02 B-Type Natriuretic Peptide 32 Total Protein 7.8 Albumin 3.6 Result Diagram: 09/09/1682009/09/16820 Assessment and Plan Problem List: (1) COPD (chronic obstructive pulmonary disease) (2) Lung mass Plan: Poss. lung cancer with mets to bone. (3) Shortness of breath (4) Thrombocytopenia (5) Hx of hepatitis C (6) HTN (hypertension) Assessment and Plan Admit to Dr. Valdez 55-year-old female with recent findings of lung mass with possible bone metastases, presented to emergency room with shortness of breath, wheezing, increasing back pain and leg weakness. COPD exacerbation Continue with supplemental oxygen to keep sats greater than 92 Continue with IV Solu-Medrol 125 mg IV every 6. -Continue with scheduled DuoNeb's and when necessary treatments as well Lung mass with bone metastases. Patient currently undergoing workup, has not started chemotherapy. -CTA of the chest completed, results are noted. -Consult Dr. Frey for evaluation, possibly patient can have lymph node biopsy while she is hospitalized. -We will order MRI of the brain to rule out metastases Back pain, possibly secondary to bone metastases. Also complaining of neck pain with radiculopathy to left hand. Bilaterally leg weakness, left greater than right. -Patient will be started on pain management with fentanyl patch and Dilaudid when necessary by mouth -Physical therapy for evaluation -Cervical spine MRI ordered. Hypokalemia Replace potassium Thrombocytopenia Monitor her platelets Elevated AST and alkaline phosphatase, history hepatitis C recently completed treatment. -Monitor LFTs -Avoid hepatotoxic agents Hypothyroid Continue home medications Hypertension, stable Continue home medications Tobacco abuse, recently quit -Tobacco abuse counseling completed, patient states that she is only smoking maybe 1 cigarette a day. Does not want have a nicotine patch. Home medications are reviewed, initiated as indicated SCDs and Lovenox for DVT prophylaxis PPI for GI prophylaxis Condition guarded. Plan of care has been discussed with the patient, attending and registered nurse. Further management of the patient will be dependent on the hospital course This patient was seen by myself and Dr. Valdez, this H&P is written on his behalf Physician Certification 2 Midnight Certification Type: Admission for Inpatient Services Order for Inpatient Services The services are ordered in accordance with Medicare regulations or non- Medicare payer requirements, as applicable. In the case of services not specified as inpatient-only, they are appropriately provided as inpatient services in accordance with the 2-midnight benchmark. Estimated LOS (days): 2 2 days is the estimated time the patient will need to remain in the hospital, assuming treatment plan goals are met and no additional complications. Post-Hospital Plan: Not yet determined Problem Qualifiers (1) COPD (chronic obstructive pulmonary disease): Qualified Code: J44.1 - Chronic obstructive pulmonary disease with acute exacerbation (2) HTN (hypertension): Qualified Code: I10 - Essential hypertension Eliza Aguilera Sep 09, 2016 15:09
[2016-09-09] MEDS: fentaNYL 50 MCG/HR PATCH T-DERMAL SCH (15:11)
[2016-09-09] MEDS: methylPREDNISolone SOD SUCC 125 MG/2 ML VIAL IV PUSH SCH ×2 (15:11→22:15)
[2016-09-09] MEDS: HYDROmorphone HCL PF 1 MG/ML VIAL IV PUSH PRN ×2 (15:12→22:16)
[2016-09-09] MEDS ORDERED: GADODIAMIDE PF 287 MG/ML 10 ML VIAL (for RAD MRI) IV ONE (16:10)
--- NOTE | 2016-09-09 17:12 | RADRPT ---
EXAM DATE/TIME: 09/09/2016 15:35 [facility] COMPARISON: No previous studies available for comparison. INDICATIONS : Metastatic disease. CONTRAST: 10 cc Omniscan (gadodiamide) IV MEDICAL HISTORY : Carcinoma, lung. Hepatitis C. SURGICAL HISTORY : Cholecystectomy. Orthopaedic surgies ENCOUNTER: Initial ACUITY: 1 day PAIN SCORE: 0/10 LOCATION: cranial TECHNIQUE: Multiplanar, multisequence MRI of the brain was performed both prior to and following the administrat ion of paramagnetic contrast. FINDINGS: CEREBRUM: The ventricles are normal for age. No evidence of midline shift, mass lesion, hemorrhage or acute in farction. No extraaxial fluid collections are seen. The pituitary gland and suprasellar cistern are normal in configuration. WHITE MATTER: No significant signal abnormalities are seen in the white matter. POSTERIOR FOSSA: The cerebellum and brainstem are intact. The 4th ventricle is midline. The cerebellopontine angle is unremarkable. The cerebellar tonsils are normal in position. DIFFUSION IMAGING: No focal areas of restricted diffusion are seen. No evidence of acute infarction. EXTRACRANIAL: The visualized portions of the orbits and paranasal sinuses are unremarkable. POST-CONTRAST: No abnormal areas of parenchymal or dural enhancement. No evidence of blood-brain barrier breakdown. CONCLUSION: Negative exam. No findings of metastatic disease. Alan Gates MD on September 09, 2016 at 17:09 Board Certified Radiologist. This report was verified electronically.
--- NOTE | 2016-09-09 17:57 | RADRPT ---
EXAM DATE/TIME: 09/09/2016 15:35 [facility] COMPARISON: CT PULMONARY ANGIOGRAM, September 09, 2016, 9:34. INDICATIONS : Metastatic disease. CONTRAST: 10 cc Omniscan (gadodiamide) IV MEDICAL HISTORY : Carcinoma, lung. Hepatitis C. SURGICAL HISTORY : Cholecystectomy. Orthopaedic surgeries ENCOUNTER: Initial ACUITY: 1 day PAIN SCORE: 0/10 LOCATION: Paraspinal TECHNIQUE: Multiplanar, multisequence MRI examination of the cervical spine was performed. FINDINGS: The spinal cord appears intact with technique. There is extensive adenopathy in the mediastinum, righ t supraclavicular area discussed on the patient's prior chest CT. There is slight inhomogeneity of th e marrow with mild enhancement at C4, C6 and C7 could be due to degenerative change, however early me tastatic disease is difficult to exclude at this time. There is inhomogeneity of the marrow involving the lamina of C2 on the left near the facet suspicious for early metastatic disease. C2-C3: No appreciable compromise to the thecal sac, exiting nerve roots are seen. The neural forami na are patent bilaterally. No appreciable thecal sac stenosis is seen. C3-C4: No appreciable compromise to the thecal sac, exiting nerve roots are seen. The neural forami na are patent bilaterally. No appreciable thecal sac stenosis is seen. C4-C5: No appreciable compromise to the thecal sac, exiting nerve roots are seen. The neural forami na are patent bilaterally. No appreciable thecal sac stenosis is seen. C5-C6: Moderate overall thecal sac stenosis is seen due to bulging disc and hypertrophic changes slig htly flattening the anterior portion of the spinal cord. C6-C7: No appreciable compromise to the thecal sac, exiting nerve roots are seen. The neural foramin a are patent bilaterally. No appreciable thecal sac stenosis is seen. C7-T1: No appreciable compromise to the thecal sac, exiting nerve roots are seen. The neural foramin a are patent bilaterally. No appreciable thecal sac stenosis is seen. CONCLUSION: 1. Moderate thecal sac stenosis C5-6. 2. Findings are suspicious for metastatic disease particularly involving the C2 lamina on the left si de and possibly within some of the vertebrae as well. Dimitri Mills MD on September 09, 2016 at 17:48 Board Certified Radiologist. This report was verified electronically.
[2016-09-09] MEDS: LISINOPRIL 20 MG TAB PO SCH (18:55)
[2016-09-09] MEDS: ATENOLOL 50 MG TAB PO SCH (18:55)
[2016-09-09] MEDS: HYDROCHLOROTHIAZIDE 12.5 MG CAP PO SCH (18:55)
--- NOTE | 2016-09-09 19:35 | EKG ---
Date Performed: 09/09/2016 Time Performed: 08:14:17 PTAGE: 55 years EKG: Sinus rhythm Compared to prior tracing no significant change NORMAL ECG PREVIOUS TRACING : 08/26/2016 11.19 DOCTOR: Marcos Rodriguez Interpretating Date/Time 09/09/2016 19:33:05
--- NOTE | 2016-09-09 21:12 | MB ---
cc: SHYAM CORONA MD DATE OF CONSULTATION 09/09/16 REASON FOR CONSULTATION Oncology consulted to render opinion regarding patient with lung mass suspicious for lung cancer. HISTORY OF PRESENT ILLNESS Patient is a very pleasant 55-year-old female with long history of tobacco use and alcohol use who presented to the emergency room in early July with complaint of increased low back pain. She also noticed an increased cough and dyspnea on exertion. She was given muscle relaxant with no improvement. She went back to the emergency room again in early August and CT showed a large mediastinal mass with right supraclavicular mass with L4 lesion on CT scan. I saw her in clinic last week. She us supposed to go get a PET scan and biopsy of lung mass. However, over last two days she has increased shortness of breath. She was still able to work up until yesterday. She had difficulty breathing. She has a nonproductive cough. Denies any fever or chills. She also had pain in the anterior chest wall. She also complained of pain in the low back radiating down bilateral lower extremities. She has continued to loose weight. Denies any headache. Denies any visual changes. She has some numbness of left fourth and fifth fingers. Denies any nausea, vomiting, abdominal pain, denied dysuria or hematuria. PAST MEDICAL HISTORY 1. Hypertension, 2. Hypothyroidism, 3. Anxiety, 4. Hepatitis C. PAST SURGICAL HISTORY 1. Right ankle surgery 2. Right shoulder surgery 3. Colonoscopy to 2011 4. Liver biopsy to 2009. FAMILY HISTORY Two sons and a daughter, all healthy. SOCIAL HISTORY Smoked a pack a day for 40 years. She drinks about five drinks a day. 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 ALLERGIES PENICILLIN MEDICATIONS Current, 1. Atenolol. 2. Lisinopril. 3. Hydrochlorothiazide 4. Levothyroxine. 5. Fentanyl patch. 6. Zoloft 7. Solu-Medrol. 8. Lovenox. REVIEW OF SYSTEMS She has lost more than 10 pounds. EYES: Denies any blurry vision, double vision. ENT: No mouth sores or voice changes. CARDIOVASCULAR: Denies any chest pressure or palpitation RESPIRATORY: As above. GI: Denies any nausea, vomiting, diarrhea or abdominal pain. : Denies dysuria or hematuria. MUSCULOSKELETAL: As above. HEMATOLOGIC: Negative. ENDOCRINE: Negative DERMATOLOGY: Negative. PSYCHIATRIC: Negative. NEUROLOGIC: As above. PHYSICAL EXAMINATION VITAL SIGNS: Temperature 96.6, blood pressure 151/104, O2 saturation 96% 2 liters nasal cannula. GENERAL: She is alert and oriented x3 in no acute distress. HEENT: Atraumatic, normocephalic. Pupils equal, round and reactive to light. Extraocular muscles intact. No scleral icterus. Oropharynx moist mucosa. No lesion or thrush. No mucositis. NECK: No thyromegaly. No palpable masses. LYMPHATICS: No palpable cervical, clavicular, axillary or inguinal lymph node CARDIOVASCULAR: Regular S1-S2 no murmur. LUNGS: Clear to auscultation left side, decreased breath sounds on the right ABDOMEN: Soft, nontender. I could not palpate liver or spleen. EXTREMITIES: No cyanosis, clubbing or edema. BACK: A little tender in low back. SKIN: No rash or petechiae. NEUROLOGIC: Deep tendon reflexes on the left patella is a 3 and 2+ on the right patella LABORATORY DATA Reviewed ASSESSMENT 1. Large mediastinal mass with supraclavicular adenopathy worrisome for primary lung cancer. She has more than 40 pack year of tobacco use. When she first presented to emergency room two weeks ago, CT showed 7.1 x 8.1 cm right suprahilar and mediastinal mass with extensive prevascular adenopathy. There was right supraclavicular adenopathy. CT abdomen and pelvis also showed L4 vertebral lesion. She developed hypercalcemia and was treated with Zometa recently. She is supposed to go get a biopsy next Monday. However, she developed increased shortness of breath and weakness. A repeat CT angiogram did not show any pulmonary embolism. However, there is a complete occlusion of right upper lobe pulmonary artery due to the mass/ adenopathy and there was also partial compromise of the right lower lobe pulmonary artery with multiple lung nodules characteristic of metastatic disease. There was extensive metastatic adenopathy within mediastinum, right suprahilar area and possible small metastatic adenopathy in gastroesophageal junction and upper abdomen. There was also a large right hilar mass contiguous with the mediastinal adenopathy. I suspect she may have metastatic small-cell lung carcinoma which is a very aggressive disease. I am going to consult radiology for biopsy on Monday. We may have to keep her in the hospital and start treatment as soon as we establish the diagnosis. 2. Hypercalcemia which I think is due to bone metastasis. CT abdomen and pelvis showed L4 vertebral lesions. Her alkaline phosphatase was elevated. She also had back pain. She was given Zometa and her calcium level has trended down to normal. 3. Back pain and hip pain related to the bone metastasis. She is supposed to have a PET scan done next week for further evaluation. 4. Neck pain and numbness of her left arm. She had a brain MRI which did not show any metastatic disease. However, MRI of the cervical spine showed moderate thecal sac stenosis at C5 and C6. There were findings suspicious for metastatic disease involving C2 lamina on the left side. 5. Tobacco dependence. She just quit. 6. Alcohol abuse. She drinks up to five shots a day. She also stopped drinking a few days ago. 7. History of Hepatitis C. She was treated recently. 8. Thrombocytopenia which I think may be due to underlying liver disease. Continue to monitor the platelet count. 9. Hypothyroidism. PLAN 1. Extensive discussion with the patient and her significant other 2. Consult radiology for biopsy of lung mass. 3. She will get PET scan as outpatient. 4. Due to the aggressive nature of her disease, we may have to keep her in the hospital until a diagnosis is established. If it is a small cell lung carcinoma, I would treat her with palliative chemotherapy in the hospital. 5. She will also need port placement for chemotherapy administration. Thank you, Dr. Valdez, for asking me to see this patient. We will follow with you. Shyam Corona MD [place]/ /7:11 PM /8:51 PM [place]
[2016-09-09] MEDS: SODIUM CHLORIDE 0.9% FLUSH 10 ML FLUSH IV FLUSH SCH (22:17)
[2016-09-09] MEDS: SODIUM CHLOR 0.9% 1000 ML INJ 1,000 ML IV SCH (22:18)
[2016-09-10] VITALS (8 sets, daily range): BP systolic 121–156; BP diastolic 74–104; PULSE 82–98; RESP 18–20; TEMP 96–96.4; O2SAT 93–96
[2016-09-10] MEDS: HYDROmorphone HCL PF 1 MG/ML VIAL IV PUSH PRN ×3 (03:27→16:44)
[2016-09-10] MEDS: methylPREDNISolone SOD SUCC 125 MG/2 ML VIAL IV PUSH SCH ×4 (03:27→19:58)
[2016-09-10] MEDS: LEVOTHYROXINE SODIUM 50 MCG TAB PO SCH (04:54)
[2016-09-10 07:36] LABS: AUTOMATED NEUTROPHIL # 2.8 TH/MM3 (1.8-7.7); BASOPHIL % 0.5 % (0.0-2.0); EOSINOPHIL % 0.4 % (0.0-4.0); HEMATOCRIT 33.9 % (35.0-46.0); LYMPH % 53.3 % (9.0-44.0); LYMPHOCYTE # 3.6 TH/MM3 (1.0-4.8); MEAN CELL VOLUME 90.8 FL (80.0-100.0); MEAN CORPUSCULAR HEMOGLOBIN 31.3 PG (27.0-34.0); MEAN CORPUSCULAR HGB CONC 34.5 % (32.0-36.0); MONO % 4.9 % (0.0-8.0); NEUT % 40.9 % (16.0-70.0); PLATELET COUNT 57 TH/MM3 (150-450); RED BLOOD COUNT 3.74 MIL/MM3 (4.00-5.30); WHITE BLOOD COUNT 6.8 TH/MM3 (4.0-11.0)
[2016-09-10 07:44] LABS: HEMO FLAGS AUTO DIFF
[2016-09-10 08:15] LABS: BICARBONATE 21.6 MEQ/L (21.0-32.0); INDIRECT BILIRUBIN 0.5 MG/DL (0.0-0.8); TOTAL BILIRUBIN ADULT 0.7 MG/DL (0.2-1.0)
[2016-09-10] MEDS: RESP: ALBUTEROL 2.5 MG/IPRATROPIUM 0.5 MG NEB (SCH) NEB ×4 (08:15→20:37)
[2016-09-10 08:16] LABS: POTASSIUM 5.3 MEQ/L (3.5-5.1)
[2016-09-10] MEDS: HYDROCHLOROTHIAZIDE 12.5 MG CAP PO SCH (08:55)
[2016-09-10] MEDS: POTASSIUM CHLORIDE 10 MEQ CONTROLLED RELEASE TAB PO SCH (08:55)
[2016-09-10] MEDS: LISINOPRIL 20 MG TAB PO SCH (08:55)
[2016-09-10] MEDS: ATENOLOL 50 MG TAB PO SCH (08:55)
[2016-09-10] MEDS: SERTRALINE HCL 50 MG TAB PO SCH (08:55)
[2016-09-10] MEDS ORDERED: LISINOPRIL 20 MG TAB PO SCH (09:00)
[2016-09-10] MEDS ORDERED: ATENOLOL 50 MG TAB PO SCH (09:00)
[2016-09-10] MEDS ORDERED: HYDROCHLOROTHIAZIDE 25 MG TAB PO SCH (09:00)
[2016-09-10 09:19] LABS: BANDS 10 % (0-6); CORRECTED NUCLEATED RBC 2 /100 WBC (0-0); EOSINOPHILS 1 % (0-4); METAMYELOCYTES 1 % (0-1); MYELOCYTES 3 % (0-0); NEUTROPHIL # MANUAL DIFF 2.6 TH/MM3 (1.8-7.7); POLYS (SEG NEUTROPHILS) 24 % (16-70); WBC DIFF SAMPLE 100
[2016-09-10 09:20] LABS: PLATELET ESTIMATE SMEAR LOW (NORMAL); PLATELET MORPHOLOGY NORMAL (NORMAL); SCAN/DIFF FINAL DIFF MANUAL
--- NOTE | 2016-09-10 12:18 | PD.ONC.PN ---
Subjective Subjective Remarks Afebrile overnight. Pt resting in bed asleep on approach. Awakens easily to verbal stimuli. She reports breathing better today. She is on 3L NC. Objective Data Date Time Temp Pulse Resp B/P Pulse Ox O2 Delivery O2 Flow Rate FiO2 09/10/16 09:40 16 09/10/16 08:15 95 Nasal Cannula 3.00 09/10/16 08:00 96.0 95 18 142/83 94 09/10/16 04:00 96.0 96 19 156/104 95 09/10/16 00:00 96.4 93 18 144/94 96 09/09/16 20:55 101 09/09/16 20:28 98 Nasal Cannula 3.00 09/09/16 20:00 96.6 88 19 161/94 96 09/09/16 17:00 96.6 92 24 151/104 96 09/09/16 13:30 96.3 100 27 173/100 96 09/09/16 12:35 100 22 155/91 96 Nasal Cannula 2 Result Diagram: 09/10/16 0655 09/10/16 0655 Laboratory Results Laboratory Tests Test 09/10/16 06:55 White Blood Count 6.8 TH/MM3 Red Blood Count 3.74 MIL/MM3 Hemoglobin 11.7 GM/DL Hematocrit 33.9 % Mean Corpuscular Volume 90.8 FL Mean Corpuscular Hemoglobin 31.3 PG Mean Corpuscular Hemoglobin 34.5 % Concent Red Cell Distribution Width 14.0 % Platelet Count 57 TH/MM3 Mean Platelet Volume 8.3 FL Neutrophils (%) (Auto) 40.9 % Lymphocytes (%) (Auto) 53.3 % Monocytes (%) (Auto) 4.9 % Eosinophils (%) (Auto) 0.4 % Basophils (%) (Auto) 0.5 % Neutrophils # (Auto) 2.8 TH/MM3 Lymphocytes # (Auto) 3.6 TH/MM3 Monocytes # (Auto) 0.3 TH/MM3 Eosinophils # (Auto) 0.0 TH/MM3 Basophils # (Auto) 0.0 TH/MM3 CBC Comment AUTO DIFF Differential Total Cells 100 Counted Neutrophils % (Manual) 24 % Band Neutrophils % 10 % Lymphocytes % 55 % Monocytes % 6 % Eosinophils % 1 % Neutrophils # (Manual) 2.6 TH/MM3 Metamyelocytes 1 % Myelocytes 3 % Nucleated Red Blood Cells 2 /100 WBC Differential Comment FINAL DIFF MANUAL Platelet Estimate LOW Platelet Morphology Comment NORMAL Sodium Level 132 MEQ/L Potassium Level 5.3 MEQ/L Chloride Level 99 MEQ/L Carbon Dioxide Level 21.6 MEQ/L Anion Gap 11 MEQ/L Blood Urea Nitrogen 22 MG/DL Creatinine 0.69 MG/DL Estimat Glomerular Filtration 88 ML/MIN Rate Random Glucose 123 MG/DL Calcium Level 8.0 MG/DL Total Bilirubin 0.7 MG/DL Direct Bilirubin 0.2 MG/DL Indirect Bilirubin 0.5 MG/DL Aspartate Amino Transf 885 U/L (AST/SGOT) Alanine Aminotransferase 50 U/L (ALT/SGPT) Alkaline Phosphatase 335 U/L Total Protein 7.9 GM/DL Albumin 3.5 GM/DL Imaging Studies Last Impressions CT Angiography 09/09/16823 Signed Impressions: Service Date/Time: Friday, September 09, 2016 09:34 - CONCLUSION: 1. There is no evidence for PE for technique. 2. Complete occlusion of the right upper lobe pulmonary artery due to extrinsic mass effect from metastatic adenopathy. There is also slight compromise to the right lower lobe pulmonary artery. 3. Multiple lung nodules characteristic of metastatic disease. 4. Extensive metastatic adenopathy within the mediastinum, right supraclavicular area and possible small metastatic lymph nodes in the gastroesophageal junction and upper abdomen. 5. Right hilar mass difficult to separate from the above-mentioned adenopathy may be the site of the patient's primary malignancy. Dimitri Mills MD Chest X-Ray 09/09/16817 Signed Impressions: Service Date/Time: Friday, September 09, 2016 08:29 - CONCLUSION: No appreciable change. Dimitri Mills MD Cervical Spine MRI 09/09/16 0000 Signed Impressions: Service Date/Time: Friday, September 09, 2016 15:35 - CONCLUSION: 1. Moderate thecal sac stenosis C5-6. 2. Findings are suspicious for metastatic disease particularly involving the C2 lamina on the left side and possibly within some of the vertebrae as well. Dimitri Mills MD Brain MRI 09/09/16 0000 Signed Impressions: Service Date/Time: Friday, September 09, 2016 15:35 - CONCLUSION: Negative exam. No findings of metastatic disease. Alan Gates MD Administered Medications Medications (Trade) Dose Ordered Sig/Price Route PRN Reason Start Time Stop Time Status Last Admin Dose Admin Sodium Chloride (NS Flush) 2 ml BID IV FLUSH 09/09/16 21:00 09/09/16 22:17 Enoxaparin Sodium (Lovenox Inj) 40 mg Q24H SQ 09/09/16 12:00 09/09/16 12:35 Methylprednisolone Sodium Succinate (SoluMEDROL INJ) 125 mg Q6H IV PUSH 09/09/16 14:00 09/10/16 08:55 Levothyroxine Sodium (Synthroid) 50 mcg DAILY@0600 PO 09/10/16 06:00 09/10/16 04:54 Potassium Chloride (KCl) 30 meq Q12HR PO 09/09/16 11:00 09/10/16 08:55 Atenolol (Tenormin) 50 mg DAILY PO 09/09/16 15:00 09/10/16 08:55 Hydrochlorothiazide (Microzide) 12.5 mg DAILY PO 09/09/16 15:00 09/10/16 08:55 Lisinopril (Prinivil) 20 mg DAILY PO 09/09/16 15:00 09/10/16 08:55 Hydromorphone HCl (Dilaudid Pf Inj) 0.5 mg Q3H PRN IV PUSH pain 4-10 09/09/16 14:45 09/10/16 09:03 Fentanyl (Duragesic 50 Mcg Patch.72 Hr) 1 patch Q3D T-DERMAL 09/09/16 16:00 09/09/16 15:11 Alprazolam (Xanax) 0.25 mg Q4H PRN PO anxiety 09/09/16 14:45 09/10/16 09:03 Sertraline HCl 25 mg 25 mg DAILY PO 09/09/16 14:45 09/10/16 08:55 Sodium Chloride (NS 1000 ml Inj) 1,000 ml @ 42 mls/hr [id number] IV 09/09/16 15:30 09/09/16 22:18 Objective Remarks GENERAL: Chronically ill appearing female in no acute distress. SKIN: Warm and dry. HEAD: Normocephalic. EYES: No injection or drainage. NECK: Supple, trachea midline. +R side JVD. CARDIOVASCULAR: +S1/s2. RESPIRATORY: Wheezing bilaterally, R lung nieto diminished. GASTROINTESTINAL: Abdomen soft, non-tender, nondistended. EXTREMITIES: No cyanosis, or edema. NEUROLOGICAL: No obvious focal deficit. Awake, alert, and oriented x3. Assessment/Plan Problem List: (1) Lung mass Status: Acute Plan: -- 7.1x8.1 suprahilar/mediastinal mass with adenopathy. -- Plan for biopsy on Monday with radiology -- Mets to spine; bone scan planned for Monday -- Pt has an appt for outpatient PET-CT on 09/16. -- Likely small cell lung cancer Assessment 55 y/o female with recent diagnosis of lung mass presents to the ER with increased SOB. Plan 1. Bone scan on Monday 2. Biopsy of lung on Monday with radiology. 3. Pt has PET CT scheduled for 09/16 as an outpatient. 4. May need to treat as soon as a diagnosis is made. 5. Continue steroids, supportive care. Krupa Recio Sep 10, 2016 12:18
[2016-09-10] MEDS: ENOXAPARIN SODIUM 40 MG/0.4 ML SYRINGE SQ SCH (12:48)
--- NOTE | 2016-09-10 14:54 | HHI.PR ---
Subjective Subjective Remarks alert, awake SOB at rest and worse with activity no appetite family and friends in for support. O2 on, afebrile (Lisbeth Isaac) Review of Systems Constitutional Constitutional: Fatigue, Weight Change, Weakness Constitutional Remarks 10 lb wt. loss last month (Lisbeth Isaac) Pulmonary Respiratory: Coughing, Shortness of Breath, Wheezing (audible) (Lisbeth Isaac) Hematologic/Lymphatic Heme/Lymph: Adenopathy, Enlarged Nodes (new lung mass seen, pending further testing, and biopsy) (Lisbeth Isaac) Musculoskeletal MS: Weakness, Discomfort/Pain (lower back) (Lisbeth Isaac) Vitals/Results Intake & Output 09/09/16 09/09/16 09/10/16 15:00 23:00 07:00 Intake Total 480 ml 240 ml Balance 480 ml 240 ml Intake Oral 480 ml 240 ml # Voids 3 3 Vital Signs Vital Signs Date Time Temp Pulse Resp B/P Pulse Ox O2 Delivery O2 Flow Rate FiO2 09/10/16 09:40 16 09/10/16 08:15 95 Nasal Cannula 3.00 09/10/16 08:00 96.0 95 18 142/83 94 09/10/16 04:00 96.0 96 19 156/104 95 09/10/16 00:00 96.4 93 18 144/94 96 09/09/16 20:55 101 09/09/16 20:28 98 Nasal Cannula 3.00 09/09/16 20:00 96.6 88 19 161/94 96 09/09/16 17:00 96.6 92 24 151/104 96 (Lisbeth Isaac) CBC/BMP: 09/10/16 0655 09/10/16 0655 Lab Results Laboratory Tests Test 09/10/16 06:55 White Blood Count 6.8 TH/MM3 Red Blood Count 3.74 MIL/MM3 Hemoglobin 11.7 GM/DL Hematocrit 33.9 % Mean Corpuscular Volume 90.8 FL Mean Corpuscular Hemoglobin 31.3 PG Mean Corpuscular Hemoglobin 34.5 % Concent Red Cell Distribution Width 14.0 % Platelet Count 57 TH/MM3 Mean Platelet Volume 8.3 FL Neutrophils (%) (Auto) 40.9 % Lymphocytes (%) (Auto) 53.3 % Monocytes (%) (Auto) 4.9 % Eosinophils (%) (Auto) 0.4 % Basophils (%) (Auto) 0.5 % Neutrophils # (Auto) 2.8 TH/MM3 Lymphocytes # (Auto) 3.6 TH/MM3 Monocytes # (Auto) 0.3 TH/MM3 Eosinophils # (Auto) 0.0 TH/MM3 Basophils # (Auto) 0.0 TH/MM3 CBC Comment AUTO DIFF Differential Total Cells 100 Counted Neutrophils % (Manual) 24 % Band Neutrophils % 10 % Lymphocytes % 55 % Monocytes % 6 % Eosinophils % 1 % Neutrophils # (Manual) 2.6 TH/MM3 Metamyelocytes 1 % Myelocytes 3 % Nucleated Red Blood Cells 2 /100 WBC Differential Comment FINAL DIFF MANUAL Platelet Estimate LOW Platelet Morphology Comment NORMAL Sodium Level 132 MEQ/L Potassium Level 5.3 MEQ/L Chloride Level 99 MEQ/L Carbon Dioxide Level 21.6 MEQ/L Anion Gap 11 MEQ/L Blood Urea Nitrogen 22 MG/DL Creatinine 0.69 MG/DL Estimat Glomerular Filtration 88 ML/MIN Rate Random Glucose 123 MG/DL Calcium Level 8.0 MG/DL Total Bilirubin 0.7 MG/DL Direct Bilirubin 0.2 MG/DL Indirect Bilirubin 0.5 MG/DL Aspartate Amino Transf 885 U/L (AST/SGOT) Alanine Aminotransferase 50 U/L (ALT/SGPT) Alkaline Phosphatase 335 U/L Total Protein 7.9 GM/DL Albumin 3.5 GM/DL Imaging Remarks Last Impressions CT Angiography 09/09/16823 Signed Impressions: Service Date/Time: Friday, September 09, 2016 09:34 - CONCLUSION: 1. There is no evidence for PE for technique. 2. Complete occlusion of the right upper lobe pulmonary artery due to extrinsic mass effect from metastatic adenopathy. There is also slight compromise to the right lower lobe pulmonary artery. 3. Multiple lung nodules characteristic of metastatic disease. 4. Extensive metastatic adenopathy within the mediastinum, right supraclavicular area and possible small metastatic lymph nodes in the gastroesophageal junction and upper abdomen. 5. Right hilar mass difficult to separate from the above-mentioned adenopathy may be the site of the patient's primary malignancy. Dimitri Mills MD Chest X-Ray 09/09/16817 Signed Impressions: Service Date/Time: Friday, September 09, 2016 08:29 - CONCLUSION: No appreciable change. Dimitri Mills MD Cervical Spine MRI 09/09/16 0000 Signed Impressions: Service Date/Time: Friday, September 09, 2016 15:35 - CONCLUSION: 1. Moderate thecal sac stenosis C5-6. 2. Findings are suspicious for metastatic disease particularly involving the C2 lamina on the left side and possibly within some of the vertebrae as well. Dimitri Mills MD Brain MRI 09/09/16 0000 Signed Impressions: Service Date/Time: Friday, September 09, 2016 15:35 - CONCLUSION: Negative exam. No findings of metastatic disease. Alan Gates MD Current Medications Administered Medications Medications (Trade) Dose Ordered Sig/Price Route PRN Reason Start Time Stop Time Status Last Admin Dose Admin Sodium Chloride (NS Flush) 2 ml BID IV FLUSH 09/09/16 21:00 09/09/16 22:17 Enoxaparin Sodium (Lovenox Inj) 40 mg Q24H SQ 09/09/16 12:00 09/10/16 12:48 Methylprednisolone Sodium Succinate (SoluMEDROL INJ) 125 mg Q6H IV PUSH 09/09/16 14:00 09/10/16 08:55 Levothyroxine Sodium (Synthroid) 50 mcg DAILY@0600 PO 09/10/16 06:00 09/10/16 04:54 Atenolol (Tenormin) 50 mg DAILY PO 09/09/16 15:00 09/10/16 08:55 Hydrochlorothiazide (Microzide) 12.5 mg DAILY PO 09/09/16 15:00 09/10/16 08:55 Lisinopril (Prinivil) 20 mg DAILY PO 09/09/16 15:00 09/10/16 08:55 Hydromorphone HCl (Dilaudid Pf Inj) 0.5 mg Q3H PRN IV PUSH pain 4-10 09/09/16 14:45 09/10/16 09:03 Fentanyl (Duragesic 50 Mcg Patch.72 Hr) 1 patch Q3D T-DERMAL 09/09/16 16:00 09/09/16 15:11 Alprazolam (Xanax) 0.25 mg Q4H PRN PO anxiety 09/09/16 14:45 09/10/16 09:03 Sertraline HCl 25 mg 25 mg DAILY PO 09/09/16 14:45 09/10/16 08:55 Sodium Chloride (NS 1000 ml Inj) 1,000 ml @ 42 mls/hr [id number] IV 09/09/16 15:30 09/09/16 22:18 (Lisbeth IsaacP) Physical Exam General General Appearance: Pale, Anxious (Lisbeth Isaac FOUNDER / CEO) Eyes Eye Exam: Pupils Equal, Pupils Reactive (Lisbeth Isaac FOUNDER / CEO) Ears & Nose Ears & Nose Exam: Nasal Mucosa Wilder (pale) (Lisbeth Isaac FOUNDER / CEO) Neck Neck Exam: Trachea Midline (Lisbeth Isaac FOUNDER / CEO) Pulmonary Resp Exam: Crackles (audible), Decreased Bases, Diminished Breath Sounds (LLL) , Poor Inspiratory Effort, Retractions (mild) (Lisbeth Isaac FOUNDER / CEO) Cardiology CV Exam: Dyspnea on Exertion (Lisbeth IsaacP) Chest/Breast Chest/Breast Exam: Masses (new) (Lisbeth IsaacP) Genitourinary Exam: Clear Urine (Lisbeth Isaac FOUNDER / CEO) Hematologic/Lymphatic Heme Remarks abd. MRI (Lisbeth Isaac FOUNDER / CEO) Musculoskeletal MS Exam: Joints Intact MS Remarks Generalized weakness (Lisbeth Isaac FOUNDER / CEO) Integumentary Skin Exam: Warm, Dry (Lisbeth Isaac FOUNDER / CEO) Extremeties Extremities Exam: No Edema (Lisbeth Isaac FOUNDER / CEO) Neurologic Neuro Exam: Alert, Awake, Oriented, Speech Clear (Lisbeth Isaac FOUNDER / CEO) Assessment/Plan Assessment/Plan Problem List: (1) COPD (chronic obstructive pulmonary disease) (2) Lung mass Plan: Poss. small cell lung cancer with mets to bone. (3) Shortness of breath, secondary to #2 (4) Thrombocytopenia, #2 (5) Hx of hepatitis C (6) HTN (hypertension) COPD exacerbation oxygen continuous to keep sats greater than 92 IV Solu-Medrol 125 mg IV every 6. DuoNeb's Lung mass with bone metastases. Patient currently undergoing workup, has not started chemotherapy. -CTA of the chest completed, results are noted. -Consult Dr. Frey plan bone scan Monday MRI completed, Back pain, possibly secondary to bone metastases. Also complaining of neck pain with radiculopathy to left hand. Bilaterally leg weakness, left greater than right. No appetite -Physical therapy for evaluation and mobility, encouraged patient to be up and moving around as activity that she can, without compromising her breathing. Hypokalemia, now borderline hyperkalemia Will recheck lab in the morning, BMP Thrombocytopenia continues, Decreased today to 57 from 73 labs monitored Tobacco abuse, -Tobacco abuse counseling completed, patient states that she is only smoking maybe 1 cigarette a day. Does not want have a nicotine patch. SCDs and Lovenox for DVT prophylaxis PPI for GI prophylaxis Condition guarded, serious D/W pt. D/W nurse D/W Dr. Valdez, seen on his behalf (Lisbeth Isaac) Assessment/Plan seen, examined by myself, Dr Valdez, today Discussed with patient and family She is in a lot of pain Increase Dilaudid to every 2 hours as needed Add long acting morphine She has rising liver enzymes Check CT abdomen and pelvis to rule out metastases Discussed with mid level provider The exam, history, and the medical decision-making described in the above note were completed with the assistance of the mid-level provider. I reviewed the findings presented. I attest that I had a [id number] encounter with the patient on the same day, and personally performed and documented my assessment and findings in the medical record. (Tanner Valdez MD) Lisbeth Isaac Sep 10, 2016 14:54 Tanner Valdez MD Sep 10, 2016 17:05
[2016-09-10] MEDS: SODIUM CHLORIDE 0.9% FLUSH 10 ML FLUSH IV FLUSH SCH ×2 (16:44→19:59)
[2016-09-10] MEDS: MORPHINE SULFATE 15 MG CONTROLLED RELEASE TAB PO SCH ×2 (17:31→22:07)
[2016-09-10] MEDS ORDERED: DIATRIZOATE MEGLUM/DIATRIZOATE SOD 9 ML CUP PO ONE (18:00)
[2016-09-10] MEDS: SODIUM CHLOR 0.9% 1000 ML INJ 1,000 ML IV SCH (19:59)
[2016-09-10] MEDS: ALPRAZolam 0.25 MG TAB PO PRN (22:06)
--- NOTE | 2016-09-10 22:06 | RADRPT ---
EXAM DATE/TIME: 09/10/2016 21:43 [facility] COMPARISON: CT PULMONARY ANGIOGRAM, September 09, 2016, 9:34. INDICATIONS : Weight loss; possible metastatic disease. ORAL CONTRAST: Prescribed oral contrast ingested. RADIATION DOSE: 9.91 CTDIvol (mGy) MEDICAL HISTORY : Carcinoma, lung. Hepatitis C. SURGICAL HISTORY : Cholecystectomy. ENCOUNTER: Subsequent ACUITY: 3 days PAIN SCALE: 4/10 LOCATION: abdomen TECHNIQUE: Volumetric scanning of the abdomen was performed. Using automated exposure control and adjustment of the mA and/or kV according to patient size, radiation dose was kept as low as reasonably achievable to obtain optimal diagnostic quality images. FINDINGS: The examination is performed without intravenous contrast which decreases the sensitivity for metasta tic disease in the solid organs including the liver. The patient has large mass in the mediastinum a nd right hilum measuring almost 10 cm, as assessed on the recent CT pulmonary angiogram. The left lobe of the liver is enlarged. There is an inhomogeneous density to the liver on this nonco ntrast study. This is nonspecific. Hemoclips in the jerica from prior cholecystectomy. The spleen i s grossly intact. There is a nodule in the left adrenal proximal measuring 1.[address] densi ty on the noncontrast image 37 Hounsfield units. Questionable small nodule in the lateral limb of th e right adrenal gland. There are several mildly prominent lymph nodes in the upper abdomen between the diaphragm and from th e stomach measuring up to 12 mm. No retroperitoneal adenopathy. The pancreas appears unremarkable. Abdominal aorta is normal. There is symmetric renal size. No evidence of hydronephrosis no calcified renal stones. There are 2 lesions in the left kidney, one is in the cortex of the upper pole measuring 10 mm and the other is located in the parenchyma of the lower pole measuring 3 mm. Both of these lesions are more dense theresa n the remainder of the kidney. Hyperdense cysts and solid lesions cannot be differentiated on noncon trast study. No evidence of ascites. Wide windows for bony detail demonstrate an abnormal appearanc e to the L2 vertebral body with superior endplate central compression fracture with a thin fracture l ine appearing to cross into the central vertebral body. There is approximately 30% loss of height of the vertebral body CONCLUSION: 1. Abnormal appearance of the liver with a enlarged left lobe and diffuse heterogeneous density throu ghout the entire liver. This examination is performed without intravenous contrast and, therefore, i s nonspecific with regard to differentiating between hepatocellular disease, metastatic disease, and cirrhosis. 2. Mild upper abdominal adenopathy. 3. 1.3 cm nodule left diaphragmatic crura. 4. 2 hyperdense lesions in the left kidney; hyperdense cyst versus solid lesion cannot be differentia vesta on noncontrast study. 5. Compression fracture of L2 superior endplate with 30% loss of height and one fracture line extendi ng to the central vertebral body. No involvement of the posterior cortex no retropulsed fragments. Kingsley Vu MD on September 10, 2016 at 21:54 Board Certified Radiologist. This report was verified electronically.
[2016-09-11] VITALS (9 sets, daily range): BP systolic 121–146; BP diastolic 69–97; PULSE 78–93; RESP 18–22; TEMP 95.5–96.8; O2SAT 92–97
[2016-09-11] MEDS: methylPREDNISolone SOD SUCC 125 MG/2 ML VIAL IV PUSH SCH ×4 (02:34→20:12)
[2016-09-11] MEDS: ALPRAZolam 0.25 MG TAB PO PRN ×2 (04:41→20:12)
[2016-09-11] MEDS: LEVOTHYROXINE SODIUM 50 MCG TAB PO SCH (04:41)
[2016-09-11] MEDS: MORPHINE SULFATE 15 MG CONTROLLED RELEASE TAB PO SCH ×3 (04:41→20:12)
[2016-09-11] MEDS: RESP: ALBUTEROL 2.5 MG/IPRATROPIUM 0.5 MG NEB (SCH) NEB ×4 (08:34→21:11)
[2016-09-11] MEDS: HYDROCHLOROTHIAZIDE 12.5 MG CAP PO SCH (08:43)
[2016-09-11] MEDS: ATENOLOL 50 MG TAB PO SCH (08:43)
[2016-09-11] MEDS: LISINOPRIL 20 MG TAB PO SCH (08:43)
[2016-09-11] MEDS: SODIUM CHLORIDE 0.9% FLUSH 10 ML FLUSH IV FLUSH SCH ×2 (08:44→20:12)
[2016-09-11] MEDS: SERTRALINE HCL 50 MG TAB PO SCH (08:44)
[2016-09-11 08:52] LABS: AUTOMATED NEUTROPHIL # 3.4 TH/MM3 (1.8-7.7); BASOPHIL # 0.1 TH/MM3 (0-0.2); BASOPHIL % 0.7 % (0.0-2.0); EOSINOPHIL % 0.4 % (0.0-4.0); HEMATOCRIT 31.5 % (35.0-46.0); LYMPH % 48.3 % (9.0-44.0); LYMPHOCYTE # 3.7 TH/MM3 (1.0-4.8); MEAN CELL VOLUME 90.1 FL (80.0-100.0); MEAN CORPUSCULAR HGB CONC 35.5 % (32.0-36.0); MONO % 5.4 % (0.0-8.0); NEUT % 45.2 % (16.0-70.0); PLATELET COUNT 63 TH/MM3 (150-450); WHITE BLOOD COUNT 7.6 TH/MM3 (4.0-11.0)
[2016-09-11 08:53] LABS: HEMO FLAGS AUTO DIFF
[2016-09-11 09:41] LABS: BICARBONATE 19.7 MEQ/L (21.0-32.0); INDIRECT BILIRUBIN 0.5 MG/DL (0.0-0.8); POTASSIUM 5.1 MEQ/L (3.5-5.1); TOTAL BILIRUBIN ADULT 0.6 MG/DL (0.2-1.0)
[2016-09-11 09:50] LABS: CALCIUM-PROTEIN CORRECTED 7.3 MG/DL (8.5-10.1)
[2016-09-11 10:17] LABS: BANDS 13 % (0-6); CORRECTED NUCLEATED RBC 6 /100 WBC (0-0); METAMYELOCYTES 4 % (0-1); MYELOCYTES 2 % (0-0); POLYS (SEG NEUTROPHILS) 33 % (16-70); WBC DIFF SAMPLE 100
[2016-09-11 10:18] LABS: PLATELET ESTIMATE SMEAR LOW (NORMAL); PLATELET MORPHOLOGY NORMAL (NORMAL); SCAN/DIFF FINAL DIFF MANUAL
[2016-09-11] MEDS: ENOXAPARIN SODIUM 40 MG/0.4 ML SYRINGE SQ SCH (12:55)
[2016-09-11] MEDS ORDERED: CALCIUM GLUCONATE INJ 1 GM in SODIUM CHLORIDE 0.9% INJ 100 ML IV ONE (13:00)
--- NOTE | 2016-09-11 13:36 | HHI.PR ---
Subjective Subjective Remarks alert, awake SOB at rest and worse with activity minimal appetite, but did eat a breakfast sandwich from fast food. family in O2 on n/c, afebrile Review of Systems Constitutional Constitutional: Fatigue, Weight Change, Weakness Constitutional Remarks 10 lb wt. loss last month Neck Neck: Pain Upon Movement Neck Remarks lt. upper back and shoulder pain, some numbness noted, lt. arm lump noted lt. neck, Pulmonary Respiratory: Coughing, Shortness of Breath, Wheezing (audible) Hematologic/Lymphatic Heme/Lymph: Adenopathy, Enlarged Nodes (new lung mass seen, pending further testing, and biopsy) Heme/Lymph Remarks abd. MRI Musculoskeletal MS: Weakness, Stiffness, Discomfort/Pain (lower back) Neurologic Neurologic: Numbness, Tingling Neurologic Remarks lt. arm and shoulder, neck Psychiatric Psychiatric: Anxiety Psychiatric Remarks talkative, asking alot of questions, supportive care. Vitals/Results Intake & Output 09/10/16 09/10/16 09/11/16 15:00 23:00 07:00 Intake Total 720 ml 480 ml 970 ml Balance 720 ml 480 ml 970 ml Intake Oral 720 ml 480 ml 480 ml IV Total 490 ml # Voids 4 5 4 # Bowel Movements 1 Vital Signs Vital Signs Date Time Temp Pulse Resp B/P Pulse Ox O2 Delivery O2 Flow Rate FiO2 09/11/16 08:34 96 Nasal Cannula 3.00 09/11/16 07:50 96.8 78 20 134/85 92 09/11/16 04:00 96.0 93 19 132/88 94 09/11/16 00:00 96.1 87 18 139/97 95 09/10/16 20:38 Nasal Cannula 3.00 09/10/16 20:00 96.0 85 18 124/85 94 09/10/16 20:00 83 09/10/16 16:00 96.0 85 20 121/88 93 CBC/BMP: 09/11/16 0830 09/11/16 0830 Lab Results Laboratory Tests Test 09/11/16 08:30 White Blood Count 7.6 TH/MM3 Red Blood Count 3.50 MIL/MM3 Hemoglobin 11.2 GM/DL Hematocrit 31.5 % Mean Corpuscular Volume 90.1 FL Mean Corpuscular Hemoglobin 32.0 PG Mean Corpuscular Hemoglobin 35.5 % Concent Red Cell Distribution Width 14.0 % Platelet Count 63 TH/MM3 Mean Platelet Volume 8.2 FL Neutrophils (%) (Auto) 45.2 % Lymphocytes (%) (Auto) 48.3 % Monocytes (%) (Auto) 5.4 % Eosinophils (%) (Auto) 0.4 % Basophils (%) (Auto) 0.7 % Neutrophils # (Auto) 3.4 TH/MM3 Lymphocytes # (Auto) 3.7 TH/MM3 Monocytes # (Auto) 0.4 TH/MM3 Eosinophils # (Auto) 0.0 TH/MM3 Basophils # (Auto) 0.1 TH/MM3 CBC Comment AUTO DIFF Differential Total Cells 100 Counted Neutrophils % (Manual) 33 % Band Neutrophils % 13 % Lymphocytes % 43 % Monocytes % 5 % Neutrophils # (Manual) 4.0 TH/MM3 Metamyelocytes 4 % Myelocytes 2 % Nucleated Red Blood Cells 6 /100 WBC Differential Comment FINAL DIFF MANUAL Platelet Estimate LOW Platelet Morphology Comment NORMAL Sodium Level 129 MEQ/L Potassium Level 5.1 MEQ/L Chloride Level 97 MEQ/L Carbon Dioxide Level 19.7 MEQ/L Anion Gap 12 MEQ/L Blood Urea Nitrogen 26 MG/DL Creatinine 0.71 MG/DL Estimat Glomerular Filtration 85 ML/MIN Rate Random Glucose 105 MG/DL Calcium Level 7.3 MG/DL Protein Corrected Calcium 7.3 MG/DL Total Bilirubin 0.6 MG/DL Direct Bilirubin 0.1 MG/DL Indirect Bilirubin 0.5 MG/DL Aspartate Amino Transf 601 U/L (AST/SGOT) Alanine Aminotransferase 52 U/L (ALT/SGPT) Alkaline Phosphatase 320 U/L Total Protein 7.3 GM/DL Albumin 3.3 GM/DL Imaging Remarks Last Impressions Abdomen CT 09/10/16 0000 Signed Impressions: Service Date/Time: Saturday, September 10, 2016 21:43 - CONCLUSION: 1. Abnormal appearance of the liver with a enlarged left lobe and diffuse heterogeneous density throughout the entire liver. This examination is performed without intravenous contrast and, therefore, is nonspecific with regard to differentiating between hepatocellular disease, metastatic disease, and cirrhosis. 2. Mild upper abdominal adenopathy. 3. 1.3 cm nodule left diaphragmatic crura. 4. 2 hyperdense lesions in the left kidney; hyperdense cyst versus solid lesion cannot be differentiated on noncontrast study. 5. Compression fracture of L2 superior endplate with 30%% loss of height and one fracture line extending to the central vertebral body. No involvement of the posterior cortex no retropulsed fragments. Kingsley Vu MD CT Angiography 09/09/16 0824 Signed Impressions: Service Date/Time: Friday, September 09, 2016 09:34 - CONCLUSION: 1. There is no evidence for PE for technique. 2. Complete occlusion of the right upper lobe pulmonary artery due to extrinsic mass effect from metastatic adenopathy. There is also slight compromise to the right lower lobe pulmonary artery. 3. Multiple lung nodules characteristic of metastatic disease. 4. Extensive metastatic adenopathy within the mediastinum, right supraclavicular area and possible small metastatic lymph nodes in the gastroesophageal junction and upper abdomen. 5. Right hilar mass difficult to separate from the above-mentioned adenopathy may be the site of the patient's primary malignancy. Dimitri Mills MD Chest X-Ray 09/09/16 0818 Signed Impressions: Service Date/Time: Friday, September 09, 2016 08:29 - CONCLUSION: No appreciable change. Dimitri Mills MD Cervical Spine MRI 09/09/16 0000 Signed Impressions: Service Date/Time: Friday, September 09, 2016 15:35 - CONCLUSION: 1. Moderate thecal sac stenosis C5-6. 2. Findings are suspicious for metastatic disease particularly involving the C2 lamina on the left side and possibly within some of the vertebrae as well. Dimitri Mills MD Brain MRI 09/09/16 0000 Signed Impressions: Service Date/Time: Friday, September 09, 2016 15:35 - CONCLUSION: Negative exam. No findings of metastatic disease. Alan Gates MD Current Medications Administered Medications Medications (Trade) Dose Ordered Sig/Price Route PRN Reason Start Time Stop Time Status Last Admin Dose Admin Sodium Chloride (NS Flush) 2 ml BID IV FLUSH 09/09/16 21:00 09/11/16 08:44 Ondansetron HCl (Zofran Inj) 4 mg Q6H PRN IVP NAUSEA OR VOMITING 09/09/16 10:45 09/10/16 21:28 Enoxaparin Sodium (Lovenox Inj) 40 mg Q24H SQ 09/09/16 12:00 09/11/16 12:55 Methylprednisolone Sodium Succinate (SoluMEDROL INJ) 125 mg Q6H IV PUSH 09/09/16 14:00 09/11/16 12:56 Levothyroxine Sodium (Synthroid) 50 mcg DAILY@0600 PO 09/10/16 06:00 09/11/16 04:41 Atenolol (Tenormin) 50 mg DAILY PO 09/09/16 15:00 09/11/16 08:43 Hydrochlorothiazide (Microzide) 12.5 mg DAILY PO 09/09/16 15:00 09/11/16 08:43 Lisinopril (Prinivil) 20 mg DAILY PO 09/09/16 15:00 09/11/16 08:43 Fentanyl 1 patch 1 patch Q3D T-DERMAL 09/09/16 16:00 09/09/16 15:11 Sodium Chloride (NS 1000 ml Inj) 1,000 ml @ 42 mls/hr [id number] IV 09/09/16 15:30 09/10/16 19:59 Alprazolam (Xanax) 0.5 mg Q4H PRN PO anxiety 09/10/16 18:45 09/11/16 04:41 Sertraline HCl (Zoloft) 50 mg DAILY PO 09/11/16 09:00 09/11/16 08:44 Morphine Sulfate (Oramorph Sr) 15 mg Q8HR PO 09/10/16 17:00 09/11/16 12:55 Physical Exam General General Appearance: Pale, Anxious Eyes Eye Exam: Pupils Equal, Pupils Reactive Ears & Nose Ears & Nose Exam: Nasal Mucosa [place] (pale) Neck Neck Exam: Trachea Midline Pulmonary Resp Exam: Crackles (audible), Decreased Bases, Diminished Breath Sounds (LLL) , Poor Inspiratory Effort, Retractions (mild) Cardiology CV Exam: Dyspnea on Exertion Chest/Breast Chest/Breast Exam: Masses (new) Genitourinary Exam: Clear Urine Hematologic/Lymphatic Heme Exam: Adenopathy, Enlarged Nodes (new lung mass seen, pending further testing, and biopsy) Heme Remarks abd. MRI Musculoskeletal MS Exam: Joints Intact MS Remarks Generalized weakness Integumentary Skin Exam: Warm, Dry Extremeties Extremities Exam: No Edema Neurologic Neuro Exam: Alert, Awake, Oriented, Speech Clear Assessment/Plan Assessment/Plan vitals reviewed, normal trends, labs reviewed, Potassium back to normal range, monitor Hyponatremia, gentle hydration started , NS COPD exacerbation oxygen continuous to keep sats greater than 92 IV Solu-Medrol 125 mg IV every 6. 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 Patient currently undergoing workup, has not started chemotherapy. -Consult Dr. Frey , plan bone scan Monday and biopsy lung Monday. NPO Monday generalized leg weakness lt. >rt, lt arm numbess. Back pain, L2 compression fx, cervical mets ? Bilaterally leg weakness, left greater than right. Pain management per Dr. Valdez, -Physical therapy for evaluation and mobility, encouraged patient to be up and moving around as activity that she can, without compromising her breathing. Anorexia , encouraged to eat whatever she wants Thrombocytopenia continues, labs monitored Hypocalemia, IV dose Calium gluconate given. Tobacco abuse, -Tobacco abuse counseling completed, patient states that she is only smoking maybe 1 cigarette a day. Does not want have a nicotine patch. SCDs and Lovenox for DVT prophylaxis PPI for GI prophylaxis Condition guarded, supportive care. D/W pt. D/W nurse D/W Dr. Valdez, seen on his behalf ( Lisbeth Isaac Sep 11, 2016 13:36
[2016-09-11] MEDS: SODIUM CHLOR 0.9% 1000 ML INJ 1,000 ML IV SCH (15:00)
[2016-09-11] MEDS: HYDROmorphone HCL PF 1 MG/ML VIAL IV PUSH PRN ×2 (16:17→23:06)
[2016-09-12] VITALS (13 sets, daily range): BP systolic 125–155; BP diastolic 67–98; PULSE 82–102; RESP 18–23; TEMP 96–97.8; O2SAT 91–98
[2016-09-12] MEDS: methylPREDNISolone SOD SUCC 125 MG/2 ML VIAL IV PUSH SCH ×4 (02:00→20:30)
[2016-09-12] MEDS: LEVOTHYROXINE SODIUM 50 MCG TAB PO SCH (05:29)
[2016-09-12] MEDS: MORPHINE SULFATE 15 MG CONTROLLED RELEASE TAB PO SCH ×3 (05:29→20:11)
[2016-09-12] MEDS: RESP: ALBUTEROL 2.5 MG/IPRATROPIUM 0.5 MG NEB (SCH) NEB ×4 (08:36→19:04)
[2016-09-12] MEDS: SODIUM CHLORIDE 0.9% FLUSH 10 ML FLUSH IV FLUSH SCH ×2 (09:00→20:30)
[2016-09-12] MEDS: ALPRAZolam 0.25 MG TAB PO PRN ×2 (10:10→21:55)
[2016-09-12] MEDS: ENOXAPARIN SODIUM 40 MG/0.4 ML SYRINGE SQ SCH (12:00)
--- NOTE | 2016-09-12 13:21 | PD.ONC.PN ---
Subjective Subjective Remarks Afebrile overnight. Patient tired and hungry. She is waiting to go down for CT guided lung biopsy as well as Bone scan. Objective Data Date Time Temp Pulse Resp B/P Pulse Ox O2 Delivery O2 Flow Rate FiO2 09/12/16 08:36 95 Nasal Cannula 3.00 09/12/16 08:00 96.3 95 18 131/82 93 09/12/16 04:00 96.1 95 23 155/78 92 09/12/16 00:00 96.0 93 21 133/81 93 09/11/16 21:29 94 Nasal Cannula 2.00 09/11/16 20:00 80 09/11/16 20:00 96.6 93 22 146/75 92 09/11/16 15:50 96.2 83 20 125/86 97 09/11/16 15:37 93 Nasal Cannula 2.00 09/12/16 09/12/16 09/12/16 07:00 15:00 23:00 Intake Total 555 ml Balance 555 ml Result Diagram: 09/11/1630 09/11/1630 Administered Medications Medications (Trade) Dose Ordered Sig/Price Route PRN Reason Start Time Stop Time Status Last Admin Dose Admin Sodium Chloride (NS Flush) 2 ml BID IV FLUSH 09/09/16 21:00 09/11/16 08:44 Ondansetron HCl (Zofran Inj) 4 mg Q6H PRN IVP NAUSEA OR VOMITING 09/09/16 10:45 09/10/16 21:28 Enoxaparin Sodium (Lovenox Inj) 40 mg Q24H SQ 09/09/16 12:00 09/11/16 12:55 Methylprednisolone Sodium Succinate (SoluMEDROL INJ) 125 mg Q6H IV PUSH 09/09/16 14:00 09/12/16 09:40 Levothyroxine Sodium (Synthroid) 50 mcg DAILY@0600 PO 09/10/16 06:00 09/12/16 05:29 Atenolol (Tenormin) 50 mg DAILY PO 09/09/16 15:00 09/11/16 08:43 Hydrochlorothiazide (Microzide) 12.5 mg DAILY PO 09/09/16 15:00 09/11/16 08:43 Lisinopril (Prinivil) 20 mg DAILY PO 09/09/16 15:00 09/11/16 08:43 Fentanyl (Duragesic 50 Mcg Patch.72 Hr) 1 patch Q3D T-DERMAL 09/09/16 16:00 09/09/16 15:11 Alprazolam (Xanax) 0.5 mg Q4H PRN PO anxiety 09/10/16 18:45 09/12/16 10:10 Hydromorphone HCl (Dilaudid Pf Inj) 0.5 mg Q2H PRN IV PUSH pain 4-09/10/16 18:45 09/11/16 23:06 Sertraline HCl (Zoloft) 50 mg DAILY PO 09/11/16 09:00 09/11/16 08:44 Morphine Sulfate 15 mg 15 mg Q8HR PO 09/10/16 17:00 09/12/16 05:29 Sodium Chloride (NS 1000 ml Inj) 1,000 ml @ 42 mls/hr [id number] IV 09/11/16 15:00 09/11/16 15:00 Objective Remarks GENERAL: Middle aged female, appears fatigued and frustrated. sitting up in bed on 3L O2 via NC. SKIN: Warm and dry. HEAD: Normocephalic. EYES: No scleral icterus. No injection or drainage. NECK: Supple, trachea midline. CARDIOVASCULAR: Regular rate and rhythm RESPIRATORY: diminished at bases, scattered wheeze GASTROINTESTINAL: Abdomen soft, non-tender, nondistended. EXTREMITIES: No cyanosis NEUROLOGICAL: awake and alert, normal speech. Assessment/Plan Problem List: (1) Lung mass Status: Acute Plan: -- 7.1x8.1 suprahilar/mediastinal mass with adenopathy. complete occlusion of right upper lobe pulmonary artery due to the mass/ adenopathy and there was also partial compromise of the right lower lobe pulmonary artery with multiple lung nodules characteristic of metastatic disease. -- Pt has an appt for outpatient PET-CT on 09/16. -- Likely small cell lung cancer CT abdomen and pelvis also showed L4 vertebral lesion. --hypercalcemia was treated with Zometa recently. (2) Bone pain Status: Acute Plan: --on Oramorph + Dilaudid --bone scan today (3) Thrombocytopenia Status: Acute Plan: --likely due to underlying liver disease --monitor, no transfusion necessary at this time. (4) Neck pain and neuropathy Status: Acute Plan: -- had a brain MRI which did not show any metastatic disease. --MRI of the cervical spine showed moderate thecal sac stenosis at C5 and C6. findings suspicious for metastatic disease involving C2 lamina on the left side. Assessment 55 y/o female with lung mass admitted with increased SOB. h/o Hypertension, Hypothyroidism, Anxiety, Hepatitis C. Plan 1. biopsy of lung mass and bone scan this afternoon 2. will likely give first chemotherapy inpatient--plan to consult IR for port placement after diagnosis established. 3. continue steroids. Attending Statement The exam, history, and the medical decision-making described in the above note were completed with the assistance of the mid-level provider. I reviewed and agree with the findings presented. I attest that I had a [id number] encounter with the patient on the same day, and personally performed and documented my assessment and findings in the medical record. SOB slightly better. Pain controlled. Await bone scan and biopsy of lung mass. Suspect mets small cell lung carcinoma and plan to treat with chemotherapy once we have the tissue diagnosis. Amanda Jarvis Sep 12, 2016 13:21 Bjorn Frey MD Sep 12, 2016 15:57
--- NOTE | 2016-09-12 14:42 | HHI.PR ---
Subjective Subjective Remarks "I am wiped out" awake, anxiety mild SOB at rest and worse with activity Appetite poor in O2 on n/c, afebrile Review of Systems Constitutional Constitutional: Fatigue, Weight Change, Weakness Constitutional Remarks 10 lb wt. loss last month Neck Neck: Pain Upon Movement Neck Remarks lt. upper back and shoulder pain, some numbness noted, lt. arm lump noted lt. neck, Pulmonary Respiratory: Coughing, Shortness of Breath, Wheezing (audible) Hematologic/Lymphatic Heme/Lymph: Adenopathy, Enlarged Nodes (new lung mass seen, pending further testing, and biopsy) Heme/Lymph Remarks abd. MRI Musculoskeletal MS: Weakness, Stiffness, Discomfort/Pain (lower back) Neurologic Neurologic: Numbness, Tingling Neurologic Remarks lt. arm and shoulder, neck Psychiatric Psychiatric: Anxiety Psychiatric Remarks Testing today, mild anxiety Vitals/Results Intake & Output 09/11/16 09/11/16 09/12/16 15:00 23:00 07:00 Intake Total 240 ml 920 ml 555 ml Balance 240 ml 920 ml 555 ml Intake Oral 240 ml 480 ml IV Total 440 ml 555 ml # Voids 5 4 4 # Bowel Movements 0 Vital Signs Vital Signs Date Time Temp Pulse Resp B/P Pulse Ox O2 Delivery O2 Flow Rate FiO2 09/12/16 12:00 96.5 96 18 125/78 94 09/12/16 08:36 95 Nasal Cannula 3.00 09/12/16 08:00 96.3 95 18 131/82 93 09/12/16 04:00 96.1 95 23 155/78 92 09/12/16 00:00 96.0 93 21 133/81 93 09/11/16 21:29 94 Nasal Cannula 2.00 09/11/16 20:00 80 09/11/16 20:00 96.6 93 22 146/75 92 09/11/16 15:50 96.2 83 20 125/86 97 09/11/16 15:37 93 Nasal Cannula 2.00 CBC/BMP: 09/11/16 0830 09/11/16 0830 Current Medications Administered Medications Medications (Trade) Dose Ordered Sig/Price Route PRN Reason Start Time Stop Time Status Last Admin Dose Admin Sodium Chloride (NS Flush) 2 ml BID IV FLUSH 09/09/16 21:00 09/11/16 08:44 Ondansetron HCl (Zofran Inj) 4 mg Q6H PRN IVP NAUSEA OR VOMITING 09/09/16 10:45 09/10/16 21:28 Enoxaparin Sodium (Lovenox Inj) 40 mg Q24H SQ 09/09/16 12:00 09/11/16 12:55 Methylprednisolone Sodium Succinate (SoluMEDROL INJ) 125 mg Q6H IV PUSH 09/09/16 14:00 09/12/16 09:40 Levothyroxine Sodium (Synthroid) 50 mcg DAILY@0600 PO 09/10/16 06:00 09/12/16 05:29 Atenolol (Tenormin) 50 mg DAILY PO 09/09/16 15:00 09/11/16 08:43 Hydrochlorothiazide (Microzide) 12.5 mg DAILY PO 09/09/16 15:00 09/11/16 08:43 Lisinopril (Prinivil) 20 mg DAILY PO 09/09/16 15:00 09/11/16 08:43 Fentanyl (Duragesic 50 Mcg Patch.72 Hr) 1 patch Q3D T-DERMAL 09/09/16 16:00 09/09/16 15:11 Alprazolam (Xanax) 0.5 mg Q4H PRN PO anxiety 09/10/16 18:45 09/12/16 10:10 Hydromorphone HCl (Dilaudid Pf Inj) 0.5 mg Q2H PRN IV PUSH pain 4-10 09/10/16 18:45 09/11/16 23:06 Sertraline HCl (Zoloft) 50 mg DAILY PO 09/11/16 09:00 09/11/16 08:44 Morphine Sulfate 15 mg 15 mg Q8HR PO 09/10/16 17:00 09/12/16 05:29 Sodium Chloride (NS 1000 ml Inj) 1,000 ml @ 42 mls/hr [id number] IV 09/11/16 15:00 09/11/16 15:00 Physical Exam General General Appearance: Pale, Anxious Eyes Eye Exam: Pupils Equal, Pupils Reactive Ears & Nose Ears & Nose Exam: Nasal Mucosa [place] (pale) Neck Neck Exam: Trachea Midline Pulmonary Resp Exam: Crackles (audible), Decreased Bases, Diminished Breath Sounds (LLL) , Poor Inspiratory Effort, Retractions (mild) Cardiology CV Exam: Dyspnea on Exertion Chest/Breast Chest/Breast Exam: Masses (new) Genitourinary Exam: Clear Urine Hematologic/Lymphatic Heme Exam: Adenopathy, Enlarged Nodes (new lung mass seen, pending further testing, and biopsy) Heme Remarks abd. MRI Musculoskeletal MS Exam: Joints Intact MS Remarks Generalized weakness Integumentary Skin Exam: Warm, Dry Extremeties Extremities Exam: No Edema Neurologic Neuro Exam: Alert, Awake, Oriented, Speech Clear Assessment/Plan Assessment/Plan vitals reviewed, normal trends, afebrile labs reviewed, continue gentle hydration , we'll recheck labs tomorrow with special attention to low calcium COPD exacerbation oxygen continuous to keep sats greater than 92 IV Solu-Medrol 125 mg IV every 6. 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 Patient currently undergoing workup, has not started chemotherapy. -Consult Dr. Frey , appreciate aggressive care, dependent on findings and hospital course, patient may need first chemotherapy and hospital and portal access per oncology notes. plan bone scan this p.m. and biopsy lung this p.m. NPO, going down for test at 1315 Continues to have generalized weakness Pain management per Dr. Valdez, shortness of breath anxiety back pain ,shoulder pain -Physical therapy, eval done today Anorexia , encouraged to eat whatever she wants Tobacco abuse, -Tobacco abuse counseling completed, patient states that she is only smoking maybe 1 cigarette a day. Does not want have a nicotine patch. SCDs and Lovenox for DVT prophylaxis PPI for GI prophylaxis Condition guarded, supportive care. D/W pt. D/W nurse D/W Dr. teran, seen on his behalf ( Lisbeth Isaac Sep 12, 2016 14:42
[2016-09-12] MEDS ORDERED: LIDOCAINE 1%/EPINEPHrine 1:100,000 SOLN 20 ML VIAL ONE (15:12)
--- NOTE | 2016-09-12 15:40 | RADRPT ---
EXAM DATE/TIME: 09/12/2016 13:15 [facility] COMPARISON: No previous studies available for comparison. PRIOR BONE SCANS: No correlative bone scan available for comparison. INDICATIONS : Neoplasm. DOSE: 30.1 mCi Tc99m MDP IV IMAGING: SPECT/CT imaging with fusion was performed. RADIATION DOSE: 4.67 CTDIvol (mGy) MEDICAL HISTORY : Hypertension. Hepatitis C. Carcinoma, lung. Hypothyroid. SURGICAL HISTORY : Right ankle and right shoulder surgery. ENCOUNTER: Initial ACUITY: 3 days PAIN SCALE: 4/10 LOCATION: Back. TECHNIQUE: Three hours post intravenous administration of radiotracer, whole body bone scan imaging was performe d. FINDINGS: There are multiple foci of increased activity involving the mid thoracic spine as well as multiple bi lateral ribs characteristic of metastatic disease. MRI of the spinal axis could be performed to furth er evaluate this. The kidneys and bladder appear normal. The appendicular skeleton is intact. CONCLUSION: 1. Findings of osseous metastatic disease to the thoracic spine and ribs. MRI is recommended for furt her evaluation if clinically indicated. Saul Salomon MD on September 12, 2016 at 15:33 Board Certified Radiologist. This report was verified electronically.
--- NOTE | 2016-09-12 17:22 | RADRPT ---
EXAM DATE/TIME: 09/12/2016 16:49 [facility] COMPARISON: No previous studies available for comparison. INDICATIONS : Pneumothorax. Post right lung biopsy. MEDICAL HISTORY : Carcinoma, lung. Hepatitis C SURGICAL HISTORY : Cholecystectomy. ENCOUNTER: Initial ACUITY: 1 day PAIN SCORE: 10/10 LOCATION: Bilateral chest FINDINGS: The cardiac silhouette is normal in transverse diameter. There is no evidence of pneumothorax. Large right hilar mass is again identified. No pleural effusions are identified. CONCLUSION: 1. There is no evidence of pneumothorax. Saul Salomon MD on September 12, 2016 at 17:20 Board Certified Radiologist. This report was verified electronically.
[2016-09-12] MEDS: HYDROCHLOROTHIAZIDE 12.5 MG CAP PO SCH (18:06)
[2016-09-12] MEDS: SERTRALINE HCL 50 MG TAB PO SCH (18:06)
[2016-09-12] MEDS: ATENOLOL 50 MG TAB PO SCH (18:06)
[2016-09-12] MEDS: LISINOPRIL 20 MG TAB PO SCH (18:06)
[2016-09-12] MEDS: fentaNYL 50 MCG/HR PATCH T-DERMAL SCH (18:14)
[2016-09-12] MEDS: REMOVE OLD DURAGESIC (FENTANYL) PATCH T-DERMAL SCH (18:15)
[2016-09-12] MEDS: SODIUM CHLOR 0.9% 1000 ML INJ 1,000 ML IV SCH (18:16)
[2016-09-12 19:03] LABS: AUTOMATED NEUTROPHIL # 5.4 TH/MM3 (1.8-7.7); BASOPHIL % 0.3 % (0.0-2.0); EOSINOPHIL % 0.3 % (0.0-4.0); HEMATOCRIT 35.2 % (35.0-46.0); LYMPH % 34.9 % (9.0-44.0); LYMPHOCYTE # 3.2 TH/MM3 (1.0-4.8); MEAN CELL VOLUME 91.6 FL (80.0-100.0); MEAN CORPUSCULAR HEMOGLOBIN 31.1 PG (27.0-34.0); MEAN CORPUSCULAR HGB CONC 33.9 % (32.0-36.0); NEUT % 58.5 % (16.0-70.0); PLATELET COUNT 68 TH/MM3 (150-450); RED BLOOD COUNT 3.85 MIL/MM3 (4.00-5.30); RED CELL DISTRIBUTION WIDTH 14.1 % (11.6-17.2); WHITE BLOOD COUNT 9.2 TH/MM3 (4.0-11.0)
[2016-09-12 19:25] LABS: HEMO FLAGS AUTO DIFF
[2016-09-12 19:30] LABS: BICARBONATE 19.3 MEQ/L (21.0-32.0); POTASSIUM 4.7 MEQ/L (3.5-5.1)
[2016-09-12 20:09] LABS: CALCIUM-PROTEIN CORRECTED 7.3 MG/DL (8.5-10.1)
[2016-09-12 21:23] LABS: BANDS 9 % (0-6); CORRECTED NUCLEATED RBC 3 /100 WBC (0-0); EOSINOPHILS 1 % (0-4); MYELOCYTES 1 % (0-0); NEUTROPHIL # MANUAL DIFF 4.8 TH/MM3 (1.8-7.7); POLYS (SEG NEUTROPHILS) 41 % (16-70); PROMYELOCYTES 1 % (0-0); WBC DIFF SAMPLE 100
[2016-09-12 21:24] LABS: PLATELET ESTIMATE SMEAR LOW (NORMAL); PLATELET MORPHOLOGY NORMAL (NORMAL); SCAN/DIFF FINAL DIFF MANUAL
[2016-09-12] MEDS: CALCIUM CARBONATE 500 MG CHEWABLE TAB PO SCH (21:55)
[2016-09-12] MEDS: HYDROmorphone HCL PF 1 MG/ML VIAL IV PUSH PRN (21:55)
[2016-09-13] VITALS (9 sets, daily range): BP systolic 118–164; BP diastolic 72–91; PULSE 80–93; RESP 18–28; TEMP 96.1–97.4; O2SAT 92–94
[2016-09-13] MEDS: methylPREDNISolone SOD SUCC 125 MG/2 ML VIAL IV PUSH SCH ×3 (02:19→18:43)
[2016-09-13] MEDS: RESP: ALBUTEROL 2.5 MG/IPRATROPIUM 0.5 MG NEB (PRN) NEB ×2 (03:04→20:07)
[2016-09-13] MEDS: LEVOTHYROXINE SODIUM 50 MCG TAB PO SCH (05:23)
[2016-09-13] MEDS: MORPHINE SULFATE 15 MG CONTROLLED RELEASE TAB PO SCH ×3 (05:24→21:40)
[2016-09-13 07:25] LABS: AUTOMATED NEUTROPHIL # 4.8 TH/MM3 (1.8-7.7); BASOPHIL % 0.2 % (0.0-2.0); EOSINOPHIL % 0.6 % (0.0-4.0); HEMATOCRIT 34.4 % (35.0-46.0); LYMPH % 34.6 % (9.0-44.0); LYMPHOCYTE # 2.8 TH/MM3 (1.0-4.8); MEAN CELL VOLUME 91.1 FL (80.0-100.0); MEAN CORPUSCULAR HEMOGLOBIN 31.5 PG (27.0-34.0); MEAN CORPUSCULAR HGB CONC 34.5 % (32.0-36.0); MONO % 5.6 % (0.0-8.0); PLATELET COUNT 59 TH/MM3 (150-450); RED BLOOD COUNT 3.77 MIL/MM3 (4.00-5.30); RED CELL DISTRIBUTION WIDTH 13.8 % (11.6-17.2); WHITE BLOOD COUNT 8.1 TH/MM3 (4.0-11.0)
[2016-09-13 07:33] LABS: HEMO FLAGS AUTO DIFF
[2016-09-13] MEDS: RESP: ALBUTEROL 2.5 MG/IPRATROPIUM 0.5 MG NEB (SCH) NEB ×2 (07:40→11:49)
[2016-09-13 08:03] LABS: ALKALINE PHOSPHATASE 323 U/L (45-117); ALT (GPT) 69 U/L (10-53); ANION GAP 11 MEQ/L (5-15); AST (GOT) 435 U/L (15-37); BICARBONATE 21.6 MEQ/L (21.0-32.0); BLOOD UREA NITROGEN 32 MG/DL (7-18); CHLORIDE 100 MEQ/L (98-107); GLOMERULAR FILTRATION RATE 80 ML/MIN (>89); POTASSIUM 4.7 MEQ/L (3.5-5.1); SODIUM (NA) 133 MEQ/L (136-145); TOTAL BILIRUBIN ADULT 0.7 MG/DL (0.2-1.0)
[2016-09-13 08:30] LABS: BANDS 26 % (0-6); CORRECTED NUCLEATED RBC 5 /100 WBC (0-0); EOSINOPHILS 1 % (0-4); METAMYELOCYTES 1 % (0-1); MYELOCYTES 5 % (0-0); NEUTROPHIL # MANUAL DIFF 5.8 TH/MM3 (1.8-7.7); POLYS (SEG NEUTROPHILS) 40 % (16-70); WBC DIFF SAMPLE 100
[2016-09-13 08:31] LABS: PLATELET ESTIMATE SMEAR LOW (NORMAL); PLATELET MORPHOLOGY NORMAL (NORMAL); SCAN/DIFF FINAL DIFF MANUAL
[2016-09-13] MEDS: LISINOPRIL 20 MG TAB PO SCH (09:06)
[2016-09-13] MEDS: HYDROCHLOROTHIAZIDE 12.5 MG CAP PO SCH (09:06)
[2016-09-13] MEDS: CALCIUM CARBONATE 500 MG CHEWABLE TAB PO SCH (09:06)
[2016-09-13] MEDS: ATENOLOL 50 MG TAB PO SCH (09:06)
[2016-09-13] MEDS: SERTRALINE HCL 50 MG TAB PO SCH (09:06)
[2016-09-13] MEDS: ALPRAZolam 0.25 MG TAB PO PRN ×2 (09:07→16:33)
[2016-09-13] MEDS: SODIUM CHLORIDE 0.9% FLUSH 10 ML FLUSH IV FLUSH SCH ×2 (09:07→21:00)
[2016-09-13] MEDS: HYDROmorphone HCL PF 1 MG/ML VIAL IV PUSH PRN ×2 (09:08→16:34)
[2016-09-13] MEDS: ENOXAPARIN SODIUM 40 MG/0.4 ML SYRINGE SQ SCH (12:00)
--- NOTE | 2016-09-13 13:47 | PD.ONC.PN ---
Subjective Subjective Remarks Afebrile overnight. Patient resting comfortably. She is dyspneic but states this is her baseline. She is no more dyspneic then usual. She denies pain and states she feels comfortable at the moment. Objective Data Date Time Temp Pulse Resp B/P Pulse Ox O2 Delivery O2 Flow Rate FiO2 09/13/16 12:00 96.3 86 21 125/77 93 09/13/16 08:00 96.1 91 28 150/88 94 09/13/16 08:00 93 09/13/16 07:40 Nasal Cannula 3.50 09/13/16 04:00 96.4 80 20 137/78 92 09/13/16 03:08 92 Nasal Cannula 3.00 09/13/16 00:00 96.2 81 18 140/84 93 09/12/16 20:15 96.5 86 20 150/67 94 09/12/16 20:00 82 09/12/16 19:07 98 Nasal Cannula 3.00 09/12/16 18:00 97.8 102 20 133/84 91 09/12/16 17:15 93 18 147/86 91 09/12/16 16:45 92 18 136/92 92 09/12/16 16:30 97.8 94 20 146/98 92 09/12/16 15:00 87 09/13/16 09/13/16 09/13/16 07:00 15:00 23:00 Intake Total 684 ml Balance 684 ml Result Diagram: 09/13/16 0600 09/13/16 0600 Laboratory Results Laboratory Tests Test 09/12/16 09/13/16 18:25 06:00 White Blood Count 9.2 TH/MM3 8.1 TH/MM3 Red Blood Count 3.85 MIL/MM3 3.77 MIL/MM3 Hemoglobin 12.0 GM/DL 11.9 GM/DL Hematocrit 35.2 % 34.4 % Mean Corpuscular Volume 91.6 FL 91.1 FL Mean Corpuscular Hemoglobin 31.1 PG 31.5 PG Mean Corpuscular Hemoglobin 33.9 % 34.5 % Concent Red Cell Distribution Width 14.1 % 13.8 % Platelet Count 68 TH/MM3 59 TH/MM3 Mean Platelet Volume 8.1 FL 8.4 FL Neutrophils (%) (Auto) 58.5 % 59.0 % Lymphocytes (%) (Auto) 34.9 % 34.6 % Monocytes (%) (Auto) 6.0 % 5.6 % Eosinophils (%) (Auto) 0.3 % 0.6 % Basophils (%) (Auto) 0.3 % 0.2 % Neutrophils # (Auto) 5.4 TH/MM3 4.8 TH/MM3 Lymphocytes # (Auto) 3.2 TH/MM3 2.8 TH/MM3 Monocytes # (Auto) 0.6 TH/MM3 0.5 TH/MM3 Eosinophils # (Auto) 0.0 TH/MM3 0.0 TH/MM3 Basophils # (Auto) 0.0 TH/MM3 0.0 TH/MM3 CBC Comment AUTO DIFF AUTO DIFF Differential Total Cells 100 100 Counted Neutrophils % (Manual) 41 % 40 % Band Neutrophils % 9 % 26 % Lymphocytes % 39 % 24 % Monocytes % 8 % 3 % Eosinophils % 1 % 1 % Neutrophils # (Manual) 4.8 TH/MM3 5.8 TH/MM3 Myelocytes 1 % 5 % Promyelocytes 1 % Nucleated Red Blood Cells 3 /100 WBC 5 /100 WBC Differential Comment FINAL DIFF FINAL DIFF MANUAL MANUAL Platelet Estimate LOW LOW Platelet Morphology Comment NORMAL NORMAL Sodium Level 130 MEQ/L 133 MEQ/L Potassium Level 4.7 MEQ/L 4.7 MEQ/L Chloride Level 100 MEQ/L 100 MEQ/L Carbon Dioxide Level 19.3 MEQ/L 21.6 MEQ/L Anion Gap 11 MEQ/L 11 MEQ/L Blood Urea Nitrogen 32 MG/DL 32 MG/DL Creatinine 0.72 MG/DL 0.75 MG/DL Estimat Glomerular Filtration 84 ML/MIN 80 ML/MIN Rate Random Glucose 95 MG/DL 124 MG/DL Calcium Level 7.4 MG/DL 7.5 MG/DL Protein Corrected Calcium 7.3 MG/DL Total Protein 7.5 GM/DL 7.4 GM/DL Metamyelocytes 1 % Total Bilirubin 0.7 MG/DL Aspartate Amino Transf 435 U/L (AST/SGOT) Alanine Aminotransferase 69 U/L (ALT/SGPT) Alkaline Phosphatase 323 U/L Albumin 3.5 GM/DL Administered Medications Medications (Trade) Dose Ordered Sig/Price Route PRN Reason Start Time Stop Time Status Last Admin Dose Admin Sodium Chloride (NS Flush) 2 ml BID IV FLUSH 09/09/16 21:00 09/13/16 09:07 Ondansetron HCl (Zofran Inj) 4 mg Q6H PRN IVP NAUSEA OR VOMITING 09/09/16 10:45 09/10/16 21:28 Enoxaparin Sodium (Lovenox Inj) 40 mg Q24H SQ 09/09/16 12:00 09/11/16 12:55 Methylprednisolone Sodium Succinate (SoluMEDROL INJ) 125 mg Q6H IV PUSH 09/09/16 14:00 09/13/16 09:07 Levothyroxine Sodium (Synthroid) 50 mcg DAILY@0600 PO 09/10/16 06:00 09/13/16 05:23 Atenolol (Tenormin) 50 mg DAILY PO 09/09/16 15:00 09/13/16 09:06 Hydrochlorothiazide (Microzide) 12.5 mg DAILY PO 09/09/16 15:00 09/13/16 09:06 Lisinopril (Prinivil) 20 mg DAILY PO 09/09/16 15:00 09/13/16 09:06 Fentanyl (Duragesic 50 Mcg Patch.72 Hr) 1 patch Q3D T-DERMAL 09/09/16 16:00 09/12/16 18:14 Miscellaneous Information 1 Q3D T-DERMAL 09/12/16 16:00 09/12/16 18:15 Alprazolam (Xanax) 0.5 mg Q4H PRN PO anxiety 09/10/16 18:45 09/13/16 09:07 Hydromorphone HCl (Dilaudid Pf Inj) 0.5 mg Q2H PRN IV PUSH pain 4-10 09/10/16 18:45 09/13/16 09:08 Sertraline HCl (Zoloft) 50 mg DAILY PO 09/11/16 09:00 09/13/16 09:06 Morphine Sulfate 15 mg 15 mg Q8HR PO 09/10/16 17:00 09/13/16 05:24 Sodium Chloride (NS 1000 ml Inj) 1,000 ml @ 42 mls/hr [id number] IV 09/11/16 15:00 09/12/16 18:16 Calcium Carbonate (Tums Chew) 500 mg DAILY PO 09/12/16 22:00 09/13/16 09:06 Objective Remarks GENERAL: Middle aged female, lying in bed sleeping on approach. 92% pulse-ox on 4L O2 via NC SKIN: Warm and dry. HEAD: Normocephalic. EYES: No injection or drainage. NECK: Supple, trachea midline. CARDIOVASCULAR: Regular rate and rhythm RESPIRATORY: diminished breath sounds in right lung. visibly dyspneic. occasional rhonchi. GASTROINTESTINAL: Abdomen soft, non-tender, nondistended. EXTREMITIES: No cyanosis NEUROLOGICAL: No obvious focal deficit. Awake, alert, and oriented x3. Assessment/Plan Problem List: (1) Lung mass Status: Acute Plan: -- 7.1x8.1 suprahilar/mediastinal mass with adenopathy. complete occlusion of right upper lobe pulmonary artery due to the mass/ adenopathy and there was also partial compromise of the right lower lobe pulmonary artery with multiple lung nodules characteristic of metastatic disease. -- Pt has an appt for outpatient PET-CT on 09/16. -- Likely small cell lung cancer CT abdomen and pelvis also showed L4 vertebral lesion. --hypercalcemia was treated with Zometa recently. (2) Bone pain Status: Acute Plan: --on Fentanyl TD+ Oramorph + Dilaudid --bone scan shows bony mets to thoracic spine and ribs (3) Thrombocytopenia Status: Acute Plan: --likely due to underlying liver disease --monitor, no transfusion necessary at this time. (4) Neck pain and neuropathy Status: Acute Plan: -- had a brain MRI which did not show any metastatic disease. --MRI of the cervical spine showed moderate thecal sac stenosis at C5 and C6. findings suspicious for metastatic disease involving C2 lamina on the left side. Assessment 55 y/o female with lung mass admitted with increased SOB. h/o Hypertension, Hypothyroidism, Anxiety, Hepatitis C. Plan 1. continue steroids 2. await pathology 3. consult IR for port placement Attending Statement The exam, history, and the medical decision-making described in the above note were completed with the assistance of the mid-level provider. I reviewed and agree with the findings presented. I attest that I had a [id number] encounter with the patient on the same day, and personally performed and documented my assessment and findings in the medical record. SOB stable. Pain controlled. Path pending. Consult IR for port placement. Bone scan showed mets in T-spine and ribs. Suspect mets small cell lung cancer. Plan to give her inpatient palliative chemo once we have the diagnosis. Amanda Jarvis Sep 13, 2016 13:47 Bjorn Frey MD Sep 13, 2016 17:54
[2016-09-13] MEDS: SODIUM CHLOR 0.9% 1000 ML INJ 1,000 ML IV SCH (14:38)
--- NOTE | 2016-09-13 15:11 | HHI.PR ---
Subjective History of Present Illness feels tired +ve SOB charity e activity less coughing , No sputum No fever or chills +ve pleuritic CP/Back pain poor appetite No N/V No abd pain Offers no other c/o Review of Systems Constitutional Constitutional: Fatigue, Weight Change, Weakness Neck Neck: Pain Upon Movement Pulmonary Respiratory: Coughing, Shortness of Breath, Wheezing (audible) Hematologic/Lymphatic Heme/Lymph: Adenopathy, Enlarged Nodes (new lung mass seen, pending further testing, and biopsy) Musculoskeletal MS: Weakness, Stiffness, Discomfort/Pain (lower back) Neurologic Neurologic: Numbness, Tingling Psychiatric Psychiatric: Anxiety Vitals/Results Intake & Output 09/12/16 09/12/16 09/13/16 15:00 23:00 07:00 Intake Total 480 ml 684 ml Balance 480 ml 684 ml Intake Oral 480 ml 240 ml IV Total 444 ml # Voids 2 2 Vital Signs Vital Signs Date Time Temp Pulse Resp B/P Pulse Ox O2 Delivery O2 Flow Rate FiO2 09/13/16 12:00 96.3 86 21 125/77 93 09/13/16 08:00 96.1 91 28 150/88 94 09/13/16 08:00 93 09/13/16 07:40 Nasal Cannula 3.50 09/13/16 04:00 96.4 80 20 137/78 92 09/13/16 03:08 92 Nasal Cannula 3.00 09/13/16 00:00 96.2 81 18 140/84 93 09/12/16 20:15 96.5 86 20 150/67 94 09/12/16 20:00 82 09/12/16 19:07 98 Nasal Cannula 3.00 09/12/16 18:00 97.8 102 20 133/84 91 09/12/16 17:15 93 18 147/86 91 09/12/16 16:45 92 18 136/92 92 09/12/16 16:30 97.8 94 20 146/98 92 CBC/BMP: 09/13/16 0600 09/13/16 0600 Lab Results Laboratory Tests Test 09/12/16 09/13/16 18:25 06:00 White Blood Count 9.2 TH/MM3 8.1 TH/MM3 Red Blood Count 3.85 MIL/MM3 3.77 MIL/MM3 Hemoglobin 12.0 GM/DL 11.9 GM/DL Hematocrit 35.2 % 34.4 % Mean Corpuscular Volume 91.6 FL 91.1 FL Mean Corpuscular Hemoglobin 31.1 PG 31.5 PG Mean Corpuscular Hemoglobin 33.9 % 34.5 % Concent Red Cell Distribution Width 14.1 % 13.8 % Platelet Count 68 TH/MM3 59 TH/MM3 Mean Platelet Volume 8.1 FL 8.4 FL Neutrophils (%) (Auto) 58.5 % 59.0 % Lymphocytes (%) (Auto) 34.9 % 34.6 % Monocytes (%) (Auto) 6.0 % 5.6 % Eosinophils (%) (Auto) 0.3 % 0.6 % Basophils (%) (Auto) 0.3 % 0.2 % Neutrophils # (Auto) 5.4 TH/MM3 4.8 TH/MM3 Lymphocytes # (Auto) 3.2 TH/MM3 2.8 TH/MM3 Monocytes # (Auto) 0.6 TH/MM3 0.5 TH/MM3 Eosinophils # (Auto) 0.0 TH/MM3 0.0 TH/MM3 Basophils # (Auto) 0.0 TH/MM3 0.0 TH/MM3 CBC Comment AUTO DIFF AUTO DIFF Differential Total Cells 100 100 Counted Neutrophils % (Manual) 41 % 40 % Band Neutrophils % 9 % 26 % Lymphocytes % 39 % 24 % Monocytes % 8 % 3 % Eosinophils % 1 % 1 % Neutrophils # (Manual) 4.8 TH/MM3 5.8 TH/MM3 Myelocytes 1 % 5 % Promyelocytes 1 % Nucleated Red Blood Cells 3 /100 WBC 5 /100 WBC Differential Comment FINAL DIFF FINAL DIFF MANUAL MANUAL Platelet Estimate LOW LOW Platelet Morphology Comment NORMAL NORMAL Sodium Level 130 MEQ/L 133 MEQ/L Potassium Level 4.7 MEQ/L 4.7 MEQ/L Chloride Level 100 MEQ/L 100 MEQ/L Carbon Dioxide Level 19.3 MEQ/L 21.6 MEQ/L Anion Gap 11 MEQ/L 11 MEQ/L Blood Urea Nitrogen 32 MG/DL 32 MG/DL Creatinine 0.72 MG/DL 0.75 MG/DL Estimat Glomerular Filtration 84 ML/MIN 80 ML/MIN Rate Random Glucose 95 MG/DL 124 MG/DL Calcium Level 7.4 MG/DL 7.5 MG/DL Protein Corrected Calcium 7.3 MG/DL Total Protein 7.5 GM/DL 7.4 GM/DL Metamyelocytes 1 % Total Bilirubin 0.7 MG/DL Aspartate Amino Transf 435 U/L (AST/SGOT) Alanine Aminotransferase 69 U/L (ALT/SGPT) Alkaline Phosphatase 323 U/L Albumin 3.5 GM/DL Physical Exam General General Appearance: No Acute Distress, Comfortable, Pale, Anxious Eyes Eye Exam: Pupils Equal, Sclera White, Extraocular Movement Intact Ears & Nose Ears & Nose Exam: Nasal Mucosa [place] (pale) Throat Throat Exam: Oral Mucosa [place] & Moist Neck Neck Exam: Neck Supple, Trachea Midline Pulmonary Resp Exam: Breath Sounds Equal, No Distress, Rhonchi Chest/Breast Chest/Breast Exam: Masses (new) Genitourinary Exam: Clear Urine Hematologic/Lymphatic Heme Exam: Adenopathy, Enlarged Nodes (new lung mass seen, pending further testing, and biopsy) Integumentary Skin Exam: Warm, Dry Extremeties Extremities Exam: No Edema Neurologic Neuro Exam: Alert, Awake, Oriented, Speech Clear, Moving All Extremities Psychiatric Psych Exam: Appropriate Responses PUD Prophylasis PUD Prophylaxis: Protonix Assessment/Plan Assessment/Plan , COPD exacerbation oxygen continuous to keep sats greater than 92 Taper IV Solu-Medrol 60 mg IV every 6. 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 undergoing workup, s/p CT guided bx yesterday, f/u CXR neg for Ptx await Path report Dr. Frey following s/p Port placement Pain management Anxiety back pain ,shoulder pain -Physical therapy, eval done today Anorexia , encouraged to eat whatever she wants Tobacco abuse, -stop smoking . SCDs and Lovenox for DVT prophylaxis PPI for GI prophylaxis Condition guarded, supportive care. D/W pt. Manuel La MD Sep 13, 2016 15:11
[2016-09-13] MEDS ORDERED: VANCOMYCIN INJ 1,000 MG in SODIUM CHLOR 0.9% 250 ML INJ 250 ML IV SCH (15:45)
[2016-09-13] MEDS ORDERED: LEVOFLOXACIN 500 MG PREMIX INJ 100 ML IV SCH (15:45)
--- NOTE | 2016-09-13 18:00 | RADRPT ---
EXAM DATE/TIME: 09/12/2016 15:48 [facility] COMPARISON: No previous studies available for comparison. INDICATIONS : Right lung mass. SEDATION TIME: 15 minutes BIOPSY SITE: Right lung MEDICATION(S): 1.) 2 midazolam (Versed) IV 2.) 100 fentanyl (Sublimaze) IV DEVICE(S): 1.) 18 gauge Adan blunt needle 2.) 20 gauge Temno core biopsy needle MEDICAL HISTORY : Hepatitis C. Carcinoma, lung. Hypertension. SURGICAL HISTORY : None. ENCOUNTER: Initial ACUITY: 1 day PAIN SCORE: 0/10 LOCATION: Bilateral chest A total of two core specimen(s) were obtained and sent to the laboratory for pathologic evaluation. PROCEDURE: 1. CT guided lung biopsy. 2. Conscious sedation with continuous EKG and oximetry monitoring. 3. EKG and oximetry remained stable throughout the procedure. Prior to the procedure informed consent was obtained. Any appropriate prior imaging studies were rev iewed. Using automated exposure control and adjustment of the mA and/or kV according to patient size, radiation dose was kept as low as reasonably achievable to obtain optimal diagnostic quality images. The site was prepped in a sterile fashion. Full sterile technique was used, including cap, mask, farhan rile gloves and gown and a large sterile sheet. Hand hygiene and 2% chlorhexidine and/or betadine/al cohol prep was utilized per protocol for cutaneous antisepsis. The skin and subcutaneous tissues wer e infiltrated with local anesthetic solution. With CT guidance the previously identified target was localized. Biopsy was performed using the presc ribed needle as above. Adequate hemostasis was obtained with compression at the puncture site. Follow-up CT scan reveals no pneumothorax. Conscious sedation was performed with the prescribed dosages and duration as above in the presence of an independent trained radiology nurse to assist in the monitoring of the patient. EKG and oximetry remained stable throughout the procedure. The patient tolerated the procedure well and there were no complications. The patient was sent to Radiology Outpatient Unit in stable condition. CONCLUSION: Uncomplicated CT guided biopsy of large right hilar/lung mass. Kingsley Vidal MD on September 13, 2016 at 17:57 Board Certified Radiologist. This report was verified electronically.
[2016-09-14] VITALS (15 sets, daily range): BP systolic 137–171; BP diastolic 77–100; PULSE 83–105; RESP 20–22; TEMP 96.1–98.2; O2SAT 90–99
[2016-09-14] MEDS: methylPREDNISolone SOD SUCC 125 MG/2 ML VIAL IV PUSH SCH ×4 (01:22→20:00)
[2016-09-14] MEDS: cloNIDine HCL 0.1 MG TAB PO PRN ×3 (01:22→17:03)
[2016-09-14] MEDS: HYDROmorphone HCL PF 1 MG/ML VIAL IV PUSH PRN ×2 (02:50→08:39)
[2016-09-14] MEDS: LEVOTHYROXINE SODIUM 50 MCG TAB PO SCH (05:37)
[2016-09-14] MEDS: MORPHINE SULFATE 15 MG CONTROLLED RELEASE TAB PO SCH ×3 (05:37→22:00)
[2016-09-14 06:22] LABS: AUTOMATED NEUTROPHIL # 4.2 TH/MM3 (1.8-7.7); BASOPHIL % 0.4 % (0.0-2.0); EOSINOPHIL % 0.5 % (0.0-4.0); HEMATOCRIT 31.9 % (35.0-46.0); LYMPH % 37.2 % (9.0-44.0); LYMPHOCYTE # 2.7 TH/MM3 (1.0-4.8); MEAN CELL VOLUME 90.8 FL (80.0-100.0); MEAN CORPUSCULAR HEMOGLOBIN 31.1 PG (27.0-34.0); MEAN CORPUSCULAR HGB CONC 34.3 % (32.0-36.0); MONO % 4.5 % (0.0-8.0); NEUT % 57.4 % (16.0-70.0); PLATELET COUNT 47 TH/MM3 (150-450); RED BLOOD COUNT 3.52 MIL/MM3 (4.00-5.30); RED CELL DISTRIBUTION WIDTH 14.3 % (11.6-17.2); WHITE BLOOD COUNT 7.3 TH/MM3 (4.0-11.0)
[2016-09-14 06:28] LABS: HEMO FLAGS AUTO DIFF
[2016-09-14 07:21] LABS: BICARBONATE 23.8 MEQ/L (21.0-32.0); POTASSIUM 4.9 MEQ/L (3.5-5.1); TOTAL BILIRUBIN ADULT 0.7 MG/DL (0.2-1.0)
[2016-09-14 07:36] LABS: CALCIUM-PROTEIN CORRECTED 7.4 MG/DL (8.5-10.1)
[2016-09-14] MEDS: RESP: ALBUTEROL 2.5 MG/IPRATROPIUM 0.5 MG NEB (PRN) NEB ×4 (08:07→23:38)
[2016-09-14 08:25] LABS: BANDS 17 % (0-6); CORRECTED NUCLEATED RBC 5 /100 WBC (0-0); METAMYELOCYTES 6 % (0-1); NEUTROPHIL # MANUAL DIFF 4.7 TH/MM3 (1.8-7.7); PLATELET ESTIMATE SMEAR LOW (NORMAL); PLATELET MORPHOLOGY NORMAL (NORMAL); POLYS (SEG NEUTROPHILS) 42 % (16-70); SCAN/DIFF FINAL DIFF MANUAL; WBC DIFF SAMPLE 100
--- NOTE | 2016-09-14 08:26 | PD.ONC.PN ---
Subjective Subjective Remarks +SOB. Weak. No CP. No back/neck pain. Objective Data Date Time Temp Pulse Resp B/P Pulse Ox O2 Delivery O2 Flow Rate FiO2 09/14/16 08:10 94 Nasal Cannula 3.00 09/14/16 06:42 16 09/14/16 04:16 18 09/14/16 04:00 96.3 87 20 171/86 93 09/14/16 00:40 96.8 88 20 167/100 93 09/13/16 20:43 84 09/13/16 20:40 97.4 86 20 164/91 93 09/13/16 20:09 93 Nasal Cannula 3.50 09/13/16 16:00 96.1 83 24 118/72 93 09/13/16 12:00 96.3 86 21 125/77 93 Result Diagram: 09/14/16 0507 09/14/16 0507 Laboratory Results Laboratory Tests Test 09/14/16 05:07 White Blood Count 7.3 TH/MM3 Red Blood Count 3.52 MIL/MM3 Hemoglobin 10.9 GM/DL Hematocrit 31.9 % Mean Corpuscular Volume 90.8 FL Mean Corpuscular Hemoglobin 31.1 PG Mean Corpuscular Hemoglobin 34.3 % Concent Red Cell Distribution Width 14.3 % Platelet Count 47 TH/MM3 Mean Platelet Volume 8.1 FL Neutrophils (%) (Auto) 57.4 % Lymphocytes (%) (Auto) 37.2 % Monocytes (%) (Auto) 4.5 % Eosinophils (%) (Auto) 0.5 % Basophils (%) (Auto) 0.4 % Neutrophils # (Auto) 4.2 TH/MM3 Lymphocytes # (Auto) 2.7 TH/MM3 Monocytes # (Auto) 0.3 TH/MM3 Eosinophils # (Auto) 0.0 TH/MM3 Basophils # (Auto) 0.0 TH/MM3 CBC Comment AUTO DIFF Sodium Level 134 MEQ/L Potassium Level 4.9 MEQ/L Chloride Level 100 MEQ/L Carbon Dioxide Level 23.8 MEQ/L Anion Gap 10 MEQ/L Blood Urea Nitrogen 27 MG/DL Creatinine 0.62 MG/DL Estimat Glomerular Filtration 100 ML/MIN Rate Random Glucose 113 MG/DL Calcium Level 7.3 MG/DL Protein Corrected Calcium 7.4 MG/DL Total Bilirubin 0.7 MG/DL Aspartate Amino Transf 320 U/L (AST/SGOT) Alanine Aminotransferase 83 U/L (ALT/SGPT) Alkaline Phosphatase 297 U/L Total Protein 6.9 GM/DL Albumin 3.2 GM/DL Administered Medications Medications (Trade) Dose Ordered Sig/Price Route PRN Reason Start Time Stop Time Status Last Admin Dose Admin Sodium Chloride (NS Flush) 2 ml BID IV FLUSH 09/09/16 21:00 09/13/16 09:07 Ondansetron HCl (Zofran Inj) 4 mg Q6H PRN IVP NAUSEA OR VOMITING 09/09/16 10:45 09/10/16 21:28 Enoxaparin Sodium (Lovenox Inj) 40 mg Q24H SQ 09/09/16 12:00 09/11/16 12:55 Levothyroxine Sodium (Synthroid) 50 mcg DAILY@0600 PO 09/10/16 06:00 09/14/16 05:37 Atenolol (Tenormin) 50 mg DAILY PO 09/09/16 15:00 09/13/16 09:06 Hydrochlorothiazide (Microzide) 12.5 mg DAILY PO 09/09/16 15:00 09/13/16 09:06 Lisinopril (Prinivil) 20 mg DAILY PO 09/09/16 15:00 09/13/16 09:06 Clonidine (Catapres) 0.1 mg Q6H PRN PO SBP>160, DBP>90 09/09/16 14:00 09/14/16 01:22 Fentanyl (Duragesic 50 Mcg Patch.72 Hr) 1 patch Q3D T-DERMAL 09/09/16 16:00 09/12/16 18:14 Miscellaneous Information 1 Q3D T-DERMAL 09/12/16 16:00 09/12/16 18:15 Alprazolam (Xanax) 0.5 mg Q4H PRN PO anxiety 09/10/16 18:45 09/13/16 16:33 Hydromorphone HCl (Dilaudid Pf Inj) 0.5 mg Q2H PRN IV PUSH pain 4-10 09/10/16 18:45 09/14/16 02:50 Sertraline HCl (Zoloft) 50 mg DAILY PO 09/11/16 09:00 09/13/16 09:06 Morphine Sulfate 15 mg 15 mg Q8HR PO 09/10/16 17:00 09/14/16 05:37 Sodium Chloride (NS 1000 ml Inj) 1,000 ml @ 42 mls/hr [id number] IV 09/11/16 15:00 09/12/16 18:16 Calcium Carbonate (Tums Chew) 500 mg DAILY PO 09/12/16 22:00 09/13/16 09:06 Methylprednisolone Sodium Succinate (SoluMEDROL INJ) 60 mg Q6H IV PUSH 09/13/16 20:00 09/14/16 01:22 Objective Remarks GENERAL: Well-nourished, well-developed patient. Weaker and more SOB. SKIN: Warm and dry. HEAD: Normocephalic. EYES: No scleral icterus. No injection or drainage. NECK: Supple, trachea midline. No JVD or lymphadenopathy. LYMPHATIC: No adenopathy. CARDIOVASCULAR: Regular rate and rhythm without murmurs. RESPIRATORY: Decreased breath sound right lung. GASTROINTESTINAL: Abdomen soft, non-tender, nondistended. EXTREMITIES: No cyanosis, or edema. MUSCULOSKELETAL: Adequate muscle tone. NEUROLOGICAL: No obvious focal deficit. Awake, alert, and oriented x3. PSYCHIATRIC: Appropriate mood and affect; insight and judgment normal. Assessment/Plan Problem List: (1) Lung mass Status: Acute Plan: -- 7.1x8.1 suprahilar/mediastinal mass with adenopathy. complete occlusion of right upper lobe pulmonary artery due to the mass/ adenopathy and there was also partial compromise of the right lower lobe pulmonary artery with multiple lung nodules characteristic of metastatic disease. -- Pt has an appt for outpatient PET-CT on 09/16. -- Suspect small cell lung cancer CT abdomen and pelvis also showed L4 vertebral lesion. ?liver mets. --hypercalcemia was treated with Zometa recently. (2) Bone pain Status: Acute Plan: --on Fentanyl TD+ Oramorph + Dilaudid, pain is controlled. --bone scan shows bony mets to thoracic spine and ribs (3) Thrombocytopenia Status: Acute Plan: --likely due to underlying liver disease --monitor, no transfusion necessary at this time. No bleeding noted. (4) Neck pain and neuropathy Status: Acute Plan: -- had a brain MRI which did not show any metastatic disease. --MRI of the cervical spine showed moderate thecal sac stenosis at C5 and C6. findings suspicious for metastatic disease involving C2 lamina on the left side. Pain controlled. (5) Shortness of breath Status: Acute Plan: Due to large right lung mass. Assessment 55 y/o female with lung mass admitted with increased SOB. h/o Hypertension, Hypothyroidism, Anxiety, Hepatitis C. Plan 1. continue steroids 2. await pathology 3. consult IR for port placement 4. Will start palliative chemo if confirmed to have small cell lung cancer. 5. Discussed living will with pt. She states that her son is coming from [place] , she does not want make any decision until her son is here. Bjorn Frey MD Sep 14, 2016 08:26
[2016-09-14] MEDS: SERTRALINE HCL 50 MG TAB PO SCH (08:37)
[2016-09-14] MEDS: ATENOLOL 50 MG TAB PO SCH (08:37)
[2016-09-14] MEDS: HYDROCHLOROTHIAZIDE 12.5 MG CAP PO SCH (08:37)
[2016-09-14] MEDS: CALCIUM CARBONATE 500 MG CHEWABLE TAB PO SCH (08:38)
[2016-09-14] MEDS: LISINOPRIL 20 MG TAB PO SCH (08:38)
[2016-09-14] MEDS: FAMOTIDINE 20 MG TAB PO SCH ×2 (08:38→21:00)
[2016-09-14] MEDS: ALPRAZolam 0.25 MG TAB PO PRN ×2 (08:38→17:03)
[2016-09-14] MEDS: SODIUM CHLORIDE 0.9% FLUSH 10 ML FLUSH IV FLUSH SCH ×2 (08:44→21:00)
[2016-09-14] MEDS: ENOXAPARIN SODIUM 40 MG/0.4 ML SYRINGE SQ SCH (09:06)
[2016-09-14] MEDS: SODIUM CHLOR 0.9% 1000 ML INJ 1,000 ML IV SCH (14:27)
[2016-09-14] MEDS ORDERED: LIDOCAINE 1%/EPINEPHrine 1:100,000 SOLN 20 ML VIAL ONE (14:51)
[2016-09-14] MEDS ORDERED: fentaNYL CITRATE 250 MCG/5 ML AMP ONE (14:53)
[2016-09-14] MEDS ORDERED: MIDAZOLAM HCL 5 MG/5 ML VIAL ONE (14:53)
--- NOTE | 2016-09-14 15:23 | HHI.PR ---
Subjective Subjective Remarks O2 continues to liters Patient has gone downstairs for port placement Family here with her Vital signs monitored (Lisbeth Isaac) History of Present Illness STILL SOB WEAK GOING FOR PORT PLACEMENT (Manuel La MD) Review of Systems Constitutional Constitutional: Fatigue, Weight Change, Weakness Constitutional Remarks 10 lb wt. loss last month (Lisbeth Isaac) Neck Neck: Pain Upon Movement Neck Remarks lt. upper back and shoulder pain, some numbness noted, lt. arm lump noted lt. neck, (Lisbeth Isaac) Pulmonary Respiratory: Coughing, Shortness of Breath, Wheezing (audible) (Lisbeth Isaac) Hematologic/Lymphatic Heme/Lymph: Adenopathy, Enlarged Nodes (new lung mass seen, pending further testing, and biopsy) Heme/Lymph Remarks abd. MRI (Lisbeth Isaac) Musculoskeletal MS: Weakness, Stiffness, Discomfort/Pain (lower back) (Lisbeth Isaac) Neurologic Neurologic: Numbness, Tingling Neurologic Remarks lt. arm and shoulder, neck (Lisbeth Isaac) Psychiatric Psychiatric: Anxiety Psychiatric Remarks Testing today, mild anxiety (Lisbeth Isaac) Vitals/Results Intake & Output 09/13/16 09/13/16 09/14/16 15:00 23:00 07:00 Intake Total 480 ml 480 ml Balance 480 ml 480 ml Intake Oral 480 ml 480 ml # Voids 6 3 3 # Bowel Movements 0 Vital Signs Vital Signs Date Time Temp Pulse Resp B/P Pulse Ox O2 Delivery O2 Flow Rate FiO2 09/14/16 15:14 98.2 86 22 168/96 92 09/14/16 08:10 94 Nasal Cannula 3.00 09/14/16 08:00 92 09/14/16 07:50 96.2 84 20 162/92 91 09/14/16 06:42 16 09/14/16 04:16 18 09/14/16 04:00 96.3 87 20 171/86 93 09/14/16 00:40 96.8 88 20 167/100 93 09/13/16 20:43 84 09/13/16 20:40 97.4 86 20 164/91 93 09/13/16 20:09 93 Nasal Cannula 3.50 09/13/16 16:00 96.1 83 24 118/72 93 (Lisbeth Isaac) CBC/BMP: 09/14/16 0507 09/14/16 0507 Lab Results Laboratory Tests Test 09/14/16 09/14/16 09/14/16 05:07 10:14 11:42 White Blood Count 7.3 TH/MM3 Red Blood Count 3.52 MIL/MM3 Hemoglobin 10.9 GM/DL Hematocrit 31.9 % Mean Corpuscular Volume 90.8 FL Mean Corpuscular Hemoglobin 31.1 PG Mean Corpuscular Hemoglobin 34.3 % Concent Red Cell Distribution Width 14.3 % Platelet Count 47 TH/MM3 Mean Platelet Volume 8.1 FL Neutrophils (%) (Auto) 57.4 % Lymphocytes (%) (Auto) 37.2 % Monocytes (%) (Auto) 4.5 % Eosinophils (%) (Auto) 0.5 % Basophils (%) (Auto) 0.4 % Neutrophils # (Auto) 4.2 TH/MM3 Lymphocytes # (Auto) 2.7 TH/MM3 Monocytes # (Auto) 0.3 TH/MM3 Eosinophils # (Auto) 0.0 TH/MM3 Basophils # (Auto) 0.0 TH/MM3 CBC Comment AUTO DIFF Differential Total Cells 100 Counted Neutrophils % (Manual) 42 % Band Neutrophils % 17 % Lymphocytes % 31 % Monocytes % 4 % Neutrophils # (Manual) 4.7 TH/MM3 Metamyelocytes 6 % Nucleated Red Blood Cells 5 /100 WBC Differential Comment FINAL DIFF MANUAL Platelet Estimate LOW Platelet Morphology Comment NORMAL Red Cell Morphology Comment NORMAL Sodium Level 134 MEQ/L Potassium Level 4.9 MEQ/L Chloride Level 100 MEQ/L Carbon Dioxide Level 23.8 MEQ/L Anion Gap 10 MEQ/L Blood Urea Nitrogen 27 MG/DL Creatinine 0.62 MG/DL Estimat Glomerular Filtration 100 ML/MIN Rate Random Glucose 113 MG/DL Calcium Level 7.3 MG/DL Protein Corrected Calcium 7.4 MG/DL Total Bilirubin 0.7 MG/DL Aspartate Amino Transf 320 U/L (AST/SGOT) Alanine Aminotransferase 83 U/L (ALT/SGPT) Alkaline Phosphatase 297 U/L Total Protein 6.9 GM/DL Albumin 3.2 GM/DL Blood Type O POSITIVE O POSITIVE Blood Bank Comment Imaging Remarks Last Impressions SPECT Scan-Bone Nuclear Medicine 09/12/16 Signed Impressions: Service Date/Time: Monday, September 12, 2016 13:15 - CONCLUSION: 1. Findings of osseous metastatic disease to the thoracic spine and ribs. MRI is recommended for further evaluation if clinically indicated. Saul Salomon MD Lung Biopsy CT 09/12/16 Signed Impressions: Service Date/Time: Monday, September 12, 2016 15:48 - CONCLUSION: Uncomplicated CT guided biopsy of large right hilar/lung mass. Kingsley Vidal MD Chest X-Ray 09/12/16 Signed Impressions: Service Date/Time: Monday, September 12, 2016 16:49 - CONCLUSION: 1. There is no evidence of pneumothorax. Saul Salomon MD Abdomen CT 09/10/16 Signed Impressions: Service Date/Time: Saturday, September 10, 2016 21:43 - CONCLUSION: 1. Abnormal appearance of the liver with a enlarged left lobe and diffuse heterogeneous density throughout the entire liver. This examination is performed without intravenous contrast and, therefore, is nonspecific with regard to differentiating between hepatocellular disease, metastatic disease, and cirrhosis. 2. Mild upper abdominal adenopathy. 3. 1.3 cm nodule left diaphragmatic crura. 4. 2 hyperdense lesions in the left kidney; hyperdense cyst versus solid lesion cannot be differentiated on noncontrast study. 5. Compression fracture of L2 superior endplate with 30%% loss of height and one fracture line extending to the central vertebral body. No involvement of the posterior cortex no retropulsed fragments. Kingsley Vu MD CT Angiography 09/09/16 0824 Signed Impressions: Service Date/Time: Friday, September 09, 2016 09:34 - CONCLUSION: 1. There is no evidence for PE for technique. 2. Complete occlusion of the right upper lobe pulmonary artery due to extrinsic mass effect from metastatic adenopathy. There is also slight compromise to the right lower lobe pulmonary artery. 3. Multiple lung nodules characteristic of metastatic disease. 4. Extensive metastatic adenopathy within the mediastinum, right supraclavicular area and possible small metastatic lymph nodes in the gastroesophageal junction and upper abdomen. 5. Right hilar mass difficult to separate from the above-mentioned adenopathy may be the site of the patient's primary malignancy. Dimitri Mills MD Cervical Spine MRI 09/09/16 0000 Signed Impressions: Service Date/Time: Friday, September 09, 2016 15:35 - CONCLUSION: 1. Moderate thecal sac stenosis C5-6. 2. Findings are suspicious for metastatic disease particularly involving the C2 lamina on the left side and possibly within some of the vertebrae as well. Dimitri Mills MD Brain MRI 09/09/16 0000 Signed Impressions: Service Date/Time: Friday, September 09, 2016 15:35 - CONCLUSION: Negative exam. No findings of metastatic disease. Alan Gates MD (Seagraves,Lisbeth M. FATBACK TRIMMER) Physical Exam General General Appearance: No Acute Distress, Comfortable, Pale, Anxious (Poncho, Lisbeth M. FATBACK TRIMMER) Eyes Eye Exam: Pupils Equal, Sclera White, Extraocular Movement Intact (Seagraves, Lisbeth M. FATBACK TRIMMER) Ears & Nose Ears & Nose Exam: Nasal Mucosa [place] (pale) (Poncho,Lisbeth M. FATBACK TRIMMER) Throat Throat Exam: Oral Mucosa [place] & Moist (Seagraves,Lisbeth M. FATBACK TRIMMER) Neck Neck Exam: Neck Supple, Trachea Midline (Seagraves,Lisbeth M. FATBACK TRIMMER) Pulmonary Resp Exam: Breath Sounds Equal, No Distress, Rhonchi (Seagraves,Lisbeth M. FATBACK TRIMMER) Chest/Breast Chest/Breast Exam: Masses (new) (Seagraves,Lisbeth M. FATBACK TRIMMER) Genitourinary Exam: Clear Urine (Seagraves,Lisbeth M. FATBACK TRIMMER) Hematologic/Lymphatic Heme Exam: Adenopathy, Enlarged Nodes (new lung mass seen, pending further testing, and biopsy) Heme Remarks abd. MRI (Seagraves,Lisbeth M. FATBACK TRIMMER) Musculoskeletal MS Remarks Generalized weakness (Seagraves,Lisbeth M. FATBACK TRIMMER) Integumentary Skin Exam: Warm, Dry (Seagraves,Lisbeth M. FATBACK TRIMMER) Extremeties Extremities Exam: No Edema (Poncho,Lisbeth M. FATBACK TRIMMER) Neurologic Neuro Exam: Alert, Awake, Oriented, Speech Clear, Moving All Extremities ( Seagraves,Lisbeth M. FATBACK TRIMMER) Psychiatric Psych Exam: Appropriate Responses (Seagraves,Lisbeth M. FATBACK TRIMMER) PUD Prophylasis PUD Prophylaxis: Protonix (Lisbeth Isaac) Assessment/Plan Assessment/Plan , COPD exacerbation, controlled with medical management Patient's greatest issue is her shortness of breath related to lung cancer oxygen continuous to keep sats greater than 92 Taper IV Solu-Medrol 60 mg IV every 6. 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 undergoing workup, s/p CT guided bx yesterday, f/u CXR neg for Ptx await Path report Dr. Frey following Port placement per IR Pain management Anxiety continue steroids, await pathology reports Will start palliative chemo if confirmed to have small cell lung cancer. Discussed living will with pt. She states that her son is coming from [place], she does not want make any decision until her son is here. back pain ,shoulder pain Continue with aggressive pain management -Physical therapy, Anorexia , encouraged to eat whatever she wants Tobacco abuse, -stop smoking . Right before admission patient was so short of breath she states she could not smoke SCDs and Lovenox for DVT prophylaxis PPI for GI prophylaxis Condition guarded, supportive care. D/W pt. (Lisbeht Isaac) Assessment/Plan D/W SIG OTHER AT BEDSIDE , anwered all of his questions pt's son is coming tonight from out of town, than they will make some decision d/w Dr Frey , overall prognosis appears poor d/t wide metastasis & extensive \ pulmonary involvement w underlying COPD will f/u (Manuel La MD) Lisbeth Isaac Sep 14, 2016 15:23 Manuel La MD Sep 15, 2016 09:45
[2016-09-14] MEDS ORDERED: SODIUM CHLORIDE 0.9% FLUSH 10 ML FLUSH IVF PRN ×2 (16:45)
[2016-09-14 21:45] LABS: BLOOD GAS BASE EXCESS -2.2 mmol/L (-2-2); BLOOD GAS CARBOXYHEMOGLOBIN 1.2 % (0-4); BLOOD GAS HCO3 22 mmol/L (22-26); BLOOD GAS METHEMOGLOBIN 1.2 % (0-2); BLOOD GAS O2 HGB SATURATION 90 % (90-100); BLOOD GAS PCO2 36 mmHg (38-42); BLOOD GAS PO2 64 mmHg (61-120); BLOOD GAS TOTAL HGB 11.1 G/DL (12.0-16.0); CRITICAL VALUE NO; DRAW SITE RT RADIAL; FIO2 100 %; LITER FLOW 15 L/M; NUMBER OF ARTERIAL PUNCTURES 1; OXYGEN DEVICE NRB; STAT YES; TEMP CORR TO 98.6; ULNAR PULSE PRESENT
--- NOTE | 2016-09-14 22:14 | RADRPT ---
EXAM DATE/TIME: 09/14/2016 21:36 [facility] COMPARISON: CHEST EXPIRATION ONLY, September 12, 2016, 16:49. CHEST SINGLE AP, September 09, 2016, 8:29. INDICATIONS : Evaluate for respiratory distress. MEDICAL HISTORY : Carcinoma, lung. Hepatitis C SURGICAL HISTORY : None. ENCOUNTER: Initial ACUITY: 1 day PAIN SCORE: Non-responsive. LOCATION: chest FINDINGS: Dense areas of patchy but partially confluent consolidation seen of both lungs, fairly diffuse on the left and basilar predominant on the right. There are probably small pleural effusions, especially on the right. I don't see a pneumothorax. There is a right arm PICC with tip at the atriocaval junction not demonstrated. CONCLUSION: Bilateral infiltrates have developed. Please see above. New right arm PICC, tip at atriocaval junctio n. Chema Persaud MD on September 14, 2016 at 22:11 Board Certified Radiologist. This report was verified electronically.
[2016-09-14] MEDS ORDERED: CHLORHEXIDINE GLUCONATE 2 % 1 PACK (2 CLOTHS)(extra cloths) TOPICAL PRN (22:15)
--- NOTE | 2016-09-14 23:35 | PD.CONS ---
HPI Service Critical Care Medicine Consult Requested By Reason for Consult Hypoxemia Primary Care Physician Chema Carrillo, DO History of Present Illness 55 y/o woman with metastatic lung cancer and diffuse bilateral infiltrates. Severe SOB with hypoxemia, bronchospasm, CO2 retention. She is severely agitated when hypoxic but calms down fine with BiPAP, at least temporarily. New infiltrates may indicate water or infection. No fever or leukocytosis. Review of Systems ROS Severe SOB. Past Family Social History Allergies: Coded Allergies: Penicillin (Verified Allergy, Severe, Rash, 08/26/16) Past Medical History Past Medical History HTN Hep C underwent treatment Feb 2016 to May 2016, was told that last lab did not show hep C. Was seeing Dr. Blevins Hypothyroid Anxiety COPD Tobacco abuse ETOH abuse Hiatal hernia Past Surgical History Cholecystectomy Right shoulder surgery Right ankle surgery Liver biopsy 2011 Colonoscopy 2009 Reported Medications Reported Meds & Active Scripts Active Nebulizer 1 Mis Mis 1 Ea .ROUTE DIRECTED Albuterol Neb (Albuterol Sulfate) 2.5 Mg/0.5 Ml Neb 2.5 Mg NEB TID NEB PRN Note: The Albuterol Sulfate Inhalation Solution is concentrated and must be diluted. Read complete instructions carefully before using. Ventolin Hfa 18 GM Inh (Albuterol Sulfate) 90 Mcg/Act Aer 2 Puff INH Q4H PRN Reported Hydrocodone-Acetaminophen 5-300 Mg Tab 1 Tab PO Q6H PRN Alprazolam 0.5 Mg Tab 0.5 Mg PO Q6H PRN Levothyroxine (Levothyroxine Sodium) 50 Mcg Tab 50 Mcg PO DAILY Atenolol 50 Mg Tab 50 Mg PO DAILY Lisinopril-Hctz 20-12.5 Mg Tab 1 Tab PO DAILY Allergies: Coded Allergies: Penicillin (Verified Allergy, Severe, Rash, 08/26/16) Active Ordered Medications Inpatient Medications Albuterol/ Ipratropium (Duoneb Neb) 1 ampule Q4HR NEB PRN NEB SHORTNESS OF BREATH; Start 09/09/16 at 11:00 Alprazolam (Xanax) 0.25 mg Q4H PRN PO anxiety; Start 09/09/16 at 14:45 Atenolol (Tenormin) 50 mg DAILY PO ; Start 09/09/16 at 15:00 Clonidine (Catapres) 0.1 mg Q6H PRN PO SBP>160, DBP>90; Start 09/09/16 at 14:00 Enoxaparin Sodium (Lovenox Inj) 40 mg Q24H SQ Last administered on 09/09/16 12 :35; Start 09/09/16 at 12:00 Fentanyl (Duragesic 50 Mcg Patch.72 Hr) 1 patch Q3D T-DERMAL ; Start 09/09/16 at 16:00 Hydrochlorothiazide (Hydrodiuril) 12.5 mg DAILY PO ; Start 09/10/16 at 09:00; Stop 09/10/16 at 09:00; Status DC Hydrochlorothiazide (Microzide) 12.5 mg DAILY PO ; Start 09/09/16 at 15:00 Hydromorphone HCl (Dilaudid Pf Inj) 0.5 mg Q3H PRN IV PUSH pain 4-10; Start at 14:45; Status UNV Levothyroxine Sodium (Synthroid) 50 mcg DAILY@0600 PO ; Start 09/10/16 at 06:00 Lisinopril (Prinivil) 20 mg DAILY PO ; Start 09/09/16 at 15:00 Methylprednisolone Sodium Succinate (SoluMEDROL INJ) 125 mg Q6H IV PUSH ; Start 09/09/16 at 14:00 Miscellaneous (Pill Splitter) 1 ea UNSCH PRN OTHER SEE LABEL COMMENTS; Start at 11:15 Naloxone HCl (Narcan Inj) 0.4 mg UNSCH PRN IV SEE LABEL COMMENTS; Start at 10:45 Ondansetron HCl (Zofran Inj) 4 mg Q6H PRN IVP NAUSEA OR VOMITING; Start at 10:45 Potassium Chloride (KCl) 30 meq Q12HR PO Last administered on 09/09/16 11:19; Start 09/09/16 at 11:00 Sertraline HCl (Zoloft) 25 mg DAILY PO ; Start 09/09/16 at 14:45; Status UNV Sodium Chloride (NS Flush) 2 ml BID IV FLUSH ; Start 09/09/16 at 21:00 Family History Mother alive, lives in [place], hx dementia Father , poss. lung cancer Physical Exam Vital Signs Vital Signs Date Time Temp Pulse Resp B/P Pulse Ox O2 Delivery O2 Flow Rate FiO2 09/14/16 21:56 96 100 09/14/16 21:55 97.6 91 20 163/90 95 09/14/16 21:35 90 15.00 100 09/14/16 20:19 96.1 86 20 137/90 94 09/14/16 16:42 94 Non-Rebreather 15.00 09/14/16 16:30 96.2 105 20 163/77 94 09/14/16 15:26 87 20 154/92 95 09/14/16 15:14 98.2 86 22 168/96 92 09/14/16 08:10 94 Nasal Cannula 3.00 09/14/16 08:00 92 09/14/16 07:50 96.2 84 20 162/92 91 09/14/16 06:42 16 09/14/16 04:16 18 09/14/16 04:00 96.3 87 20 171/86 93 09/14/16 00:40 96.8 88 20 167/100 93 Physical Exam Gen: Agitated, moving arms and legs rapidly, can't get comfortable Head: Normal. Neck: + adenopathy right side. Airway widely patent. Lungs: Very tight bronchospasm with poor air entry, right markedly diminished BS. Heart: Tachycardia. JVD from strain. Abdomen: Mildly distended, quiet. No guarding. Extremities: Tepid, clammy. Neuro: Anxious, agitated, moves 4 limbs with strength. Laboratory Laboratory Tests Test 09/14/16 09/14/16 09/14/16 09/14/16 05:07 10:14 11:42 21:30 White Blood Count 7.3 Red Blood Count 3.52 Hemoglobin 10.9 Hematocrit 31.9 Mean Corpuscular Volume 90.8 Mean Corpuscular Hemoglobin 31.1 Mean Corpuscular Hemoglobin 34.3 Concent Red Cell Distribution Width 14.3 Platelet Count 47 Mean Platelet Volume 8.1 Neutrophils (%) (Auto) 57.4 Lymphocytes (%) (Auto) 37.2 Monocytes (%) (Auto) 4.5 Eosinophils (%) (Auto) 0.5 Basophils (%) (Auto) 0.4 Neutrophils # (Auto) 4.2 Lymphocytes # (Auto) 2.7 Monocytes # (Auto) 0.3 Eosinophils # (Auto) 0.0 Basophils # (Auto) 0.0 CBC Comment AUTO DIFF Differential Total Cells 100 Counted Neutrophils % (Manual) 42 Band Neutrophils % 17 Lymphocytes % 31 Monocytes % 4 Neutrophils # (Manual) 4.7 Metamyelocytes 6 Nucleated Red Blood Cells 5 Differential Comment FINAL DIFF MANUAL Platelet Estimate LOW Platelet Morphology Comment NORMAL Red Cell Morphology Comment NORMAL Sodium Level 134 Potassium Level 4.9 Chloride Level 100 Carbon Dioxide Level 23.8 Anion Gap 10 Blood Urea Nitrogen 27 Creatinine 0.62 Estimat Glomerular Filtration 100 Rate Random Glucose 113 Calcium Level 7.3 Protein Corrected Calcium 7.4 Total Bilirubin 0.7 Aspartate Amino Transf 320 (AST/SGOT) Alanine Aminotransferase 83 (ALT/SGPT) Alkaline Phosphatase 297 Total Protein 6.9 Albumin 3.2 Blood Type O POSITIVE O POSITIVE Blood Bank Comment Blood Gas Puncture Site RT RADIAL Blood Gas Patient Temperature 98.6 Blood Gas HCO3 22 Blood Gas Base Excess -2.2 Blood Gas Oxygen Saturation 90 Arterial Blood pH 7.40 Arterial Blood Partial 36 Pressure CO2 Arterial Blood Partial 64 Pressure O2 Arterial Blood Oxygen Content 14.0 Arterial Blood 1.2 Carboxyhemoglobin Arterial Blood Methemoglobin 1.2 Blood Gas Hemoglobin 11.1 Oxygen Delivery Device NRB Blood Gas Liter Flow 15 Blood Gas Inspired Oxygen 100 Result Diagram: 09/14/16 0507 09/14/16 0507 Assessment and Plan Assessment and Plan Assessment: 1. Combined hypoxemic and hypercapneic respiratory failure. 2. Dariusz lung infiltrates, new. 3. Metastatic lung cancer. 4. Anxiety. Plan: 1. BiPAP with elevated IP to achieve TVs > 350. 2. Followup ABG. 3. Diuretics. 4. HOB up 45. 5. Ativan sedation. 6. Morphine analgesia. Overall impression: She is critically ill with severe hypoxemia requiring 100% O2; unable to wean. Suspect infiltrates are water and may respond to diuretics. Lymphangitic spread possible component but appearance was a little too rapid. Critical care 39 mins Apollo Roy MD Sep 14, 2016 23:35
[2016-09-15] VITALS (13 sets, daily range): BP systolic 112–173; BP diastolic 68–86; PULSE 92–122; RESP 18–36; TEMP 97.2–99.5; O2SAT 91–99
[2016-09-15] MEDS: methylPREDNISolone SOD SUCC 125 MG/2 ML VIAL IV PUSH SCH ×4 (00:54→20:28)
[2016-09-15] MEDS: CHLORHEXIDINE GLUCONATE 2 % 1 PACK (2 CLOTHS)(taper/protocol) TOPICAL SCH (00:55)
[2016-09-15] MEDS: LORazepam 2 MG/ML VIAL IV PUSH PRN ×2 (00:55→07:52)
[2016-09-15] MEDS ORDERED: FUROSEMIDE 40 MG/4 ML VIAL IV PUSH SCH (01:30)
[2016-09-15] MEDS: RESP: ALBUTEROL 2.5 MG/IPRATROPIUM 0.5 MG NEB (PRN) NEB ×5 (04:38→19:20)
[2016-09-15] MEDS: LEVOTHYROXINE SODIUM 50 MCG TAB PO SCH (05:38)
[2016-09-15] MEDS: MORPHINE SULFATE 15 MG CONTROLLED RELEASE TAB PO SCH ×3 (05:40→20:29)
[2016-09-15 05:43] LABS: AUTOMATED NEUTROPHIL # 4.9 TH/MM3 (1.8-7.7); BASOPHIL % 0.2 % (0.0-2.0); EOSINOPHIL % 0.6 % (0.0-4.0); HEMATOCRIT 34.5 % (35.0-46.0); LYMPH % 31.3 % (9.0-44.0); LYMPHOCYTE # 2.3 TH/MM3 (1.0-4.8); MEAN CELL VOLUME 90.5 FL (80.0-100.0); MEAN CORPUSCULAR HEMOGLOBIN 31.1 PG (27.0-34.0); MEAN CORPUSCULAR HGB CONC 34.4 % (32.0-36.0); MONO % 1.9 % (0.0-8.0); PLATELET COUNT 81 TH/MM3 (150-450); RED BLOOD COUNT 3.81 MIL/MM3 (4.00-5.30); RED CELL DISTRIBUTION WIDTH 13.8 % (11.6-17.2); WHITE BLOOD COUNT 7.4 TH/MM3 (4.0-11.0)
[2016-09-15] MEDS: MORPHINE SULFATE 4 MG/ML INJ IV PUSH PRN ×5 (05:46→21:21)
[2016-09-15 05:48] LABS: HEMO FLAGS AUTO DIFF
[2016-09-15 07:53] LABS: BANDS 10 % (0-6); CORRECTED NUCLEATED RBC 2 /100 WBC (0-0); MYELOCYTES 1 % (0-0); NEUTROPHIL # MANUAL DIFF 4.8 TH/MM3 (1.8-7.7); POLYS (SEG NEUTROPHILS) 53 % (16-70); PROMYELOCYTES 1 % (0-0); WBC DIFF SAMPLE 100
[2016-09-15 07:54] LABS: PLATELET ESTIMATE SMEAR LOW (NORMAL); PLATELET MORPHOLOGY NORMAL (NORMAL); SCAN/DIFF FINAL DIFF MANUAL; TOXIC GRANULATION 1+ (NORMAL)
[2016-09-15] MEDS: HYDROCHLOROTHIAZIDE 12.5 MG CAP PO SCH (09:00)
[2016-09-15] MEDS: SERTRALINE HCL 50 MG TAB PO SCH (09:00)
[2016-09-15] MEDS: CALCIUM CARBONATE 500 MG CHEWABLE TAB PO SCH (09:00)
[2016-09-15] MEDS: ATENOLOL 50 MG TAB PO SCH (09:00)
[2016-09-15] MEDS: FAMOTIDINE 20 MG TAB PO SCH ×2 (09:00→20:28)
[2016-09-15] MEDS: LISINOPRIL 20 MG TAB PO SCH (09:00)
[2016-09-15] MEDS: SODIUM CHLORIDE 0.9% FLUSH 10 ML FLUSH IV FLUSH SCH ×2 (09:13→20:28)
[2016-09-15] MEDS: SODIUM CHLORIDE 0.9% FLUSH 10 ML FLUSH IVF SCH (09:14)
--- NOTE | 2016-09-15 10:29 | RADRPT ---
EXAM DATE/TIME: 09/14/2016 15:40 [facility] COMPARISON: No previous studies available for comparison. INDICATIONS : Patient with lung mass unable to tolerate port procedure in need of picc line for treatment. MEDICAL HISTORY : HTN Hep C underwent treatment Feb 2016 to May 2016, was told that last lab did not show hep C. Hypothyroid Anxiety COPD Tobacco abuse ETOH abuse Hiatal hernia SURGICAL HISTORY : Cholecystectomy Right shoulder surgery Right ankle surgery Liver biopsy 2011 Colonoscopy 2009 ENCOUNTER: Initial ACUITY: 4-6 days PAIN SCORE: 0/10 FLUORO TIME: 0.6 minutes IMAGE SERIES: 0 ACCESS: Right basilic vein DEVICE(S): 1.) 5 Bengali dual lumen 38 cm Power PICC PROCEDURE : 1. Ultrasound guidance for venous catheterization. 2. Fluoroscopic guidance. 3. Ultrasound & fluoroscopic guided central venous Power PICC line placement. The risks, benefits and alternatives to the procedure were explained and verbal and written consent w as obtained. The site was prepped in sterile fashion. Full sterile technique was used, including ca p, mask, sterile gloves and gown and a large sterile sheet. Hand hygiene and 2% chlorhexidine prep w as utilized per protocol for cutaneous antisepsis with appropriate dry time for site. The skin and s ubcutaneous tissues were infiltrated with local anesthetic solution. Under direct ultrasound guidance, a suitable vein was accessed and a measuring guidewire was introduc ed and positioned in the central venous system. The ultrasound images depicting access guidance were saved and stored to PACS for permanent record. A Power Injectable PICC line was cut to prescribed length and introduced, positioned with tip at the cavoatrial junction level. The line was flushed and secured per protocol. CONCLUSION: 1. Uncomplicated central venous Power PICC line placement. Please note, the patient was initially sc heduled for port placement to facilitate chemotherapy administration. However, patient presented to t IR department with severe shortness of breath and tachypnea. Discuss situation with Dr Bjorn isabel nd we agreed that a PICC line would suffice for now until the patient was clinically more stable. 2. The PICC line can be used immediately. Alan Gates MD on September 15, 2016 at 10:26 Board Certified Radiologist. This report was verified electronically.
--- NOTE | 2016-09-15 11:02 | HHI.PR ---
Subjective Remarks obtunded on bipap tachycardiac sats 93% family, son and significant other at d they have decided to go with hospice, now DNR Objective Objective Results - Vital Signs Date Time Temp Pulse Resp B/P Pulse Ox O2 Delivery O2 Flow Rate FiO2 09/15/16 08:24 95 100 09/15/16 06:00 101 09/15/16 04:34 95 100 09/15/16 04:00 96 09/15/16 04:00 97.2 96 18 127/79 96 09/15/16 04:00 Bi-Pap 100 09/15/16 02:00 92 09/15/16 00:00 100 09/15/16 00:00 97.9 100 26 173/79 99 09/15/16 00:00 Bi-Pap 80 09/14/16 23:36 99 80 09/14/16 22:00 Bi-Pap 100 09/14/16 21:56 96 100 09/14/16 21:55 97.6 91 20 163/90 95 09/14/16 21:35 90 15.00 100 09/14/16 20:35 83 09/14/16 20:19 96.1 86 20 137/90 94 09/14/16 16:42 94 Non-Rebreather 15.00 09/14/16 16:30 96.2 105 20 163/77 94 09/14/16 15:26 87 20 154/92 95 09/14/16 15:14 98.2 86 22 168/96 92 I/O 09/14/16 09/14/16 09/14/16 09/15/16 09/15/16 09/15/16 07:00 15:00 23:00 07:00 15:00 23:00 Intake Total 180 ml 240 ml Output Total 2000 ml Balance 180 ml -1760 ml Intake Oral 180 ml 240 ml Output Urine Total 2000 ml # Voids 3 2 # Bowel Movements 1 Result Diagram: 09/15/16 0420 09/14/16 0507 Other Results Laboratory Tests Test 09/14/16 09/14/16 09/14/16 09/15/16 11:42 21:30 22:00 04:20 Blood Type O POSITIVE Blood Gas Puncture Site RT RADIAL Blood Gas Patient Temperature 98.6 Blood Gas HCO3 22 Blood Gas Base Excess -2.2 Blood Gas Oxygen Saturation 90 Arterial Blood pH 7.40 Arterial Blood Partial 36 Pressure CO2 Arterial Blood Partial 64 Pressure O2 Arterial Blood Oxygen Content 14.0 Arterial Blood 1.2 Carboxyhemoglobin Arterial Blood Methemoglobin 1.2 Blood Gas Hemoglobin 11.1 Oxygen Delivery Device NRB Blood Gas Liter Flow 15 Blood Gas Inspired Oxygen 100 Nasal Screen MRSA (PCR) MRSA NOT DETECTED White Blood Count 7.4 Red Blood Count 3.81 Hemoglobin 11.9 Hematocrit 34.5 Mean Corpuscular Volume 90.5 Mean Corpuscular Hemoglobin 31.1 Mean Corpuscular Hemoglobin 34.4 Concent Red Cell Distribution Width 13.8 Platelet Count 81 Mean Platelet Volume 8.4 Neutrophils (%) (Auto) 66.0 Lymphocytes (%) (Auto) 31.3 Monocytes (%) (Auto) 1.9 Eosinophils (%) (Auto) 0.6 Basophils (%) (Auto) 0.2 Neutrophils # (Auto) 4.9 Lymphocytes # (Auto) 2.3 Monocytes # (Auto) 0.1 Eosinophils # (Auto) 0.0 Basophils # (Auto) 0.0 CBC Comment AUTO DIFF Differential Total Cells 100 Counted Neutrophils % (Manual) 53 Band Neutrophils % 10 Lymphocytes % 26 Monocytes % 9 Neutrophils # (Manual) 4.8 Myelocytes 1 Promyelocytes 1 Nucleated Red Blood Cells 2 Differential Comment FINAL DIFF MANUAL Toxic Granulation 1+ Platelet Estimate LOW Platelet Morphology Comment NORMAL ROS General: Other (unable to do ROS) Physical Exam Physical Exam GENERAL: This is a well-nourished female, noted tachypneic SKIN: No rashes, ecchymoses or lesions. Cool and dry. HEAD: Atraumatic. Normocephalic. No temporal or scalp tenderness. EYES: Pupils equal round and reactive. ENT: Nose without bleeding, purulent drainage or septal hematoma. Throat without erythema, tonsillar hypertrophy or exudate. Uvula midline. Airway patent. NECK: Trachea midline. Right supraclavicular lymphadenopathy. Supple, nontender , no meningeal signs. CARDIOVASCULAR: Regular rate and rhythm without murmurs, gallops, or rubs. RESPIRATORY: On bipap, diminished GASTROINTESTINAL: Abdomen soft, non-tender, nondistended. No hepato-splenomegaly , or palpable masses. No guarding. MUSCULOSKELETAL: Extremities without clubbing, cyanosis, or edema. No joint tenderness, effusion, or edema noted. No calf tenderness. Negative Homans sign bilaterally. NEUROLOGICAL: obtunded Urinary Catheter: Yes Harper insert reason: End of Life A/P Diagnosis: (1) Respiratory failure (2) COPD (chronic obstructive pulmonary disease) (3) Lung mass Plan: Poss. lung cancer with mets to bone. (4) Shortness of breath (5) Thrombocytopenia (6) Hx of hepatitis C (7) HTN (hypertension) Assessment and Plan 55-year-old female with recent findings of lung mass with possible bone metastases, presented to emergency room with shortness of breath, wheezing, increasing back pain and leg weakness. COPD exacerbation Resp. failure 09/14, tx to ICU overnight -[facility] consult input appreciated -Continue BIPAP Continue with IV Solu-Medrol 60 mg IV every 6. -Continue with scheduled DuoNeb's and when necessary treatments as well Lung mass with bone metastases. Patient was undergoing workup, had not started chemotherapy. Suspect small cell lung cancer, with mets to bone, poss. liver -Appreciate oncology input -S/P lung bx 09/12, bx results pending -PAC placed 09/14 -plan was for palliative chemo however due to recent events family has decided to proceed with hospice and DNR status. Back pain, secondary to bone metastases. Also complaining of neck pain with radiculopathy to left hand. Bilaterally leg weakness, left greater than right. -Pain management --Cervical spine MRI with poss. mets Thrombocytopenia Monitor her platelets Elevated AST and alkaline phosphatase, history hepatitis C recently completed treatment. -Avoid hepatotoxic agents Hypocalcemia, was Hypercalcemic on Zometa -monitor BMP Hypothyroid Continued on home medications Hypertension, stable Continued on home medications Tobacco abuse, recently quit -Tobacco abuse counseling SCDs and Lovenox for DVT prophylaxis PPI for GI prophylaxis Poor prognosis, family has decided to transition to hospice services DNR status they are still waiting for more families emotional support provided D/W RN D/W Dr. La D/W pt's son and significant other D/W CM This patient was seen by myself and , this note is written on his behalf Problem Qualifiers (1) Respiratory failure: Qualified Code: J96.01 - Acute respiratory failure with hypoxia (2) COPD (chronic obstructive pulmonary disease): Qualified Code: J44.1 - Chronic obstructive pulmonary disease with acute exacerbation (3) HTN (hypertension): Qualified Code: I10 - Essential hypertension Eliza Aguilera Sep 15, 2016 11:02
--- NOTE | 2016-09-15 13:54 | HHI.CCPN ---
Subjective Remarks/Hospital Course 09/14: 55 y/o woman with metastatic lung cancer and diffuse bilateral infiltrates. Severe SOB with hypoxemia, bronchospasm, CO2 retention. She is severely agitated when hypoxic but calms down fine with BiPAP, at least temporarily. New infiltrates may indicate water or infection. No fever or leukocytosis. 09/15: Remains on BiPAP with full facemask. Respiratory status declining. Patient was made DNR status this morning after discussion with Dr. Frey, her oncologist. Objective Vital Signs Date Time Temp Pulse Resp B/P Pulse Ox O2 Delivery O2 Flow Rate FiO2 09/15/16 12:00 Bi-Pap 100 09/15/16 11:40 95 09/15/16 06:00 101 09/15/16 04:00 97.2 18 127/79 09/14/16 21:35 15.00 Intake and Output 09/14/16 09/14/16 09/15/16 08:00 16:00 00:00 Intake Total 180 ml Balance 180 ml Result Diagram: 09/15/16 0420 09/14/16 0507 Other Results Laboratory Tests Test 09/14/16 21:30 Blood Gas Puncture Site RT RADIAL Blood Gas Patient Temperature 98.6 Blood Gas HCO3 22 mmol/L (22-26) Blood Gas Base Excess -2.2 mmol/L (-2-2) Blood Gas Oxygen Saturation 90 % (90-100) Arterial Blood pH 7.40 (7.380-7.420) Arterial Blood Partial 36 mmHg (38-42) Pressure CO2 Arterial Blood Partial 64 mmHg Pressure O2 (61-120) Arterial Blood Oxygen Content 14.0 Vol % (12.0-20.0) Arterial Blood 1.2 % (0-4) Carboxyhemoglobin Arterial Blood Methemoglobin 1.2 % (0-2) Blood Gas Hemoglobin 11.1 G/DL (12.0-16.0) Oxygen Delivery Device NRB Blood Gas Liter Flow 15 L/M Blood Gas Inspired Oxygen 100 % Imaging Last Impressions PICC Line Insertion 09/14/16 0000 Signed Impressions: Service Date/Time: Wednesday, September 14, 2016 15:40 - CONCLUSION: 1. Uncomplicated central venous Power PICC line placement. Please note, the patient was initially scheduled for port placement to facilitate chemotherapy administration. However, patient presented to the IR department with severe shortness of breath and tachypnea. Discuss situation with Dr Bjorn Frey and we agreed that a PICC line would suffice for now until the patient was clinically more stable. 2. The PICC line can be used immediately. Alan Gates MD Chest X-Ray 09/14/16 0000 Signed Impressions: Service Date/Time: Wednesday, September 14, 2016 21:36 - CONCLUSION: Bilateral infiltrates have developed. Please see above. New right arm PICC, tip at atriocaval junction. Chema Persaud MD SPECT Scan-Bone Nuclear Medicine 09/12/16 0000 Signed Impressions: Service Date/Time: Monday, September 12, 2016 13:15 - CONCLUSION: 1. Findings of osseous metastatic disease to the thoracic spine and ribs. MRI is recommended for further evaluation if clinically indicated. Saul Salomon MD Lung Biopsy CT 09/12/16 0000 Signed Impressions: Service Date/Time: Monday, September 12, 2016 15:48 - CONCLUSION: Uncomplicated CT guided biopsy of large right hilar/lung mass. Kingsley Vidal MD Abdomen CT 09/10/16 0000 Signed Impressions: Service Date/Time: Saturday, September 10, 2016 21:43 - CONCLUSION: 1. Abnormal appearance of the liver with a enlarged left lobe and diffuse heterogeneous density throughout the entire liver. This examination is performed without intravenous contrast and, therefore, is nonspecific with regard to differentiating between hepatocellular disease, metastatic disease, and cirrhosis. 2. Mild upper abdominal adenopathy. 3. 1.3 cm nodule left diaphragmatic crura. 4. 2 hyperdense lesions in the left kidney; hyperdense cyst versus solid lesion cannot be differentiated on noncontrast study. 5. Compression fracture of L2 superior endplate with 30%% loss of height and one fracture line extending to the central vertebral body. No involvement of the posterior cortex no retropulsed fragments. Kingsley Vu MD CT Angiography 09/09/16 0824 Signed Impressions: Service Date/Time: Friday, September 09, 2016 09:34 - CONCLUSION: 1. There is no evidence for PE for technique. 2. Complete occlusion of the right upper lobe pulmonary artery due to extrinsic mass effect from metastatic adenopathy. There is also slight compromise to the right lower lobe pulmonary artery. 3. Multiple lung nodules characteristic of metastatic disease. 4. Extensive metastatic adenopathy within the mediastinum, right supraclavicular area and possible small metastatic lymph nodes in the gastroesophageal junction and upper abdomen. 5. Right hilar mass difficult to separate from the above-mentioned adenopathy may be the site of the patient's primary malignancy. Dimitri Mills MD Cervical Spine MRI 09/09/16 0000 Signed Impressions: Service Date/Time: Friday, September 09, 2016 15:35 - CONCLUSION: 1. Moderate thecal sac stenosis C5-6. 2. Findings are suspicious for metastatic disease particularly involving the C2 lamina on the left side and possibly within some of the vertebrae as well. Dimitri Mills MD Brain MRI 09/09/16 0000 Signed Impressions: Service Date/Time: Friday, September 09, 2016 15:35 - CONCLUSION: Negative exam. No findings of metastatic disease. Alan Gates MD Objective Remarks Gen: Agitated, moving arms and legs rapidly, can't get comfortable Head: Normal. Neck: + adenopathy right side. Airway widely patent. Lungs: On BiPAP with full facemask, Very tight bronchospasm with poor air entry , right markedly diminished BS. Heart: Tachycardia. JVD from strain. Abdomen: Mildly distended, quiet. No guarding. Extremities: Tepid, clammy. Neuro: Anxious, agitated, moves 4 limbs with strength. A/P Assessment and Plan Assessment: 1. Combined hypoxemic and hypercapneic respiratory failure. 2. Dariusz lung infiltrates, new. 3. Metastatic lung cancer. 4. Anxiety. Plan: 1. BiPAP with elevated IP to achieve TVs > 350. 2. Followup ABG. 3. Diuretics. 4. HOB up 45. 5. Ativan sedation. 6. Morphine analgesia. Overall impression: She is critically ill with severe hypoxemia requiring 100% O2; unable to wean. Suspect infiltrates are water and may respond to diuretics. Lymphangitic spread possible component but appearance was a little too rapid. Patient's family has decided to make her DNR status after discussion with oncology today. They wish to request hospice services and eventually transition to comfort measures. Awaiting arrival of other the family members this evening. Morphine and Ativan as needed for comfort. No further escalation of treatment. Condition critical. Discussed with patient's family at bedside. Time spent on Critical care excluding procedures 30 mins Joshua Worthington MD Sep 15, 2016 13:54
[2016-09-15] MEDS: SODIUM CHLOR 0.9% 1000 ML INJ 1,000 ML IV SCH (14:16)
[2016-09-15] MEDS: REMOVE OLD DURAGESIC (FENTANYL) PATCH T-DERMAL SCH (14:27)
[2016-09-15] MEDS: ENOXAPARIN SODIUM 40 MG/0.4 ML SYRINGE SQ SCH (14:27)
[2016-09-15] MEDS: fentaNYL 50 MCG/HR PATCH T-DERMAL SCH (14:27)
--- NOTE | 2016-09-15 17:21 | PD.ONC.PN ---
Subjective Subjective Remarks (late entry, saw pt and talked to her son Robert at 0735) Pt was started on Bipap and able to answer some questions. Denies any pain but SOB and weak. Objective Data Date Time Temp Pulse Resp B/P Pulse Ox O2 Delivery O2 Flow Rate FiO2 09/15/16 16:55 94 100 09/15/16 12:00 Bi-Pap 100 09/15/16 11:40 95 100 09/15/16 08:24 95 100 09/15/16 08:00 Bi-Pap 100 09/15/16 06:00 101 09/15/16 04:34 95 100 09/15/16 04:00 96 09/15/16 04:00 97.2 96 18 127/79 96 09/15/16 04:00 Bi-Pap 100 09/15/16 02:00 92 09/15/16 00:00 100 09/15/16 00:00 97.9 100 26 173/79 99 09/15/16 00:00 Bi-Pap 80 09/14/16 23:36 99 80 09/14/16 22:00 Bi-Pap 100 09/14/16 21:56 96 100 09/14/16 21:55 97.6 91 20 163/90 95 09/14/16 21:35 90 15.00 100 09/14/16 20:35 83 09/14/16 20:19 96.1 86 20 137/90 94 Result Diagram: 09/15/16 0420 09/14/16 0507 Laboratory Results Laboratory Tests Test 09/14/16 09/14/16 09/15/16 21:30 22:00 04:20 Blood Gas Puncture Site RT RADIAL Blood Gas Patient Temperature 98.6 Blood Gas HCO3 22 mmol/L Blood Gas Base Excess -2.2 mmol/L Blood Gas Oxygen Saturation 90 % Arterial Blood pH 7.40 Arterial Blood Partial 36 mmHg Pressure CO2 Arterial Blood Partial 64 mmHg Pressure O2 Arterial Blood Oxygen Content 14.0 Vol % Arterial Blood 1.2 % Carboxyhemoglobin Arterial Blood Methemoglobin 1.2 % Blood Gas Hemoglobin 11.1 G/DL Oxygen Delivery Device NRB Blood Gas Liter Flow 15 L/M Blood Gas Inspired Oxygen 100 % Nasal Screen MRSA (PCR) MRSA NOT DETECTED White Blood Count 7.4 TH/MM3 Red Blood Count 3.81 MIL/MM3 Hemoglobin 11.9 GM/DL Hematocrit 34.5 % Mean Corpuscular Volume 90.5 FL Mean Corpuscular Hemoglobin 31.1 PG Mean Corpuscular Hemoglobin 34.4 % Concent Red Cell Distribution Width 13.8 % Platelet Count 81 TH/MM3 Mean Platelet Volume 8.4 FL Neutrophils (%) (Auto) 66.0 % Lymphocytes (%) (Auto) 31.3 % Monocytes (%) (Auto) 1.9 % Eosinophils (%) (Auto) 0.6 % Basophils (%) (Auto) 0.2 % Neutrophils # (Auto) 4.9 TH/MM3 Lymphocytes # (Auto) 2.3 TH/MM3 Monocytes # (Auto) 0.1 TH/MM3 Eosinophils # (Auto) 0.0 TH/MM3 Basophils # (Auto) 0.0 TH/MM3 CBC Comment AUTO DIFF Differential Total Cells 100 Counted Neutrophils % (Manual) 53 % Band Neutrophils % 10 % Lymphocytes % 26 % Monocytes % 9 % Neutrophils # (Manual) 4.8 TH/MM3 Myelocytes 1 % Promyelocytes 1 % Nucleated Red Blood Cells 2 /100 WBC Differential Comment FINAL DIFF MANUAL Toxic Granulation 1+ Platelet Estimate LOW Platelet Morphology Comment NORMAL Administered Medications Medications (Trade) Dose Ordered Sig/Price Route PRN Reason Start Time Stop Time Status Last Admin Dose Admin Sodium Chloride (NS Flush) 2 ml BID IV FLUSH 09/09/16 21:00 09/15/16 09:13 Ondansetron HCl (Zofran Inj) 4 mg Q6H PRN IVP NAUSEA OR VOMITING 09/09/16 10:45 09/10/16 21:28 Enoxaparin Sodium (Lovenox Inj) 40 mg Q24H SQ 09/09/16 12:00 09/15/16 14:27 Levothyroxine Sodium (Synthroid) 50 mcg DAILY@0600 PO 09/10/16 06:00 09/15/16 05:38 Atenolol (Tenormin) 50 mg DAILY PO 09/09/16 15:00 09/14/16 08:37 Hydrochlorothiazide (Microzide) 12.5 mg DAILY PO 09/09/16 15:00 09/14/16 08:37 Lisinopril (Prinivil) 20 mg DAILY PO 09/09/16 15:00 09/14/16 08:38 Clonidine (Catapres) 0.1 mg Q6H PRN PO SBP>160, DBP>90 09/09/16 14:00 09/14/16 17:03 Fentanyl (Duragesic 50 Mcg Patch.72 Hr) 1 patch Q3D T-DERMAL 09/09/16 16:00 09/15/16 14:27 Miscellaneous Information 1 Q3D T-DERMAL 09/12/16 16:00 09/15/16 14:27 Alprazolam (Xanax) 0.5 mg Q4H PRN PO anxiety 09/10/16 18:45 09/14/16 17:03 Hydromorphone HCl (Dilaudid Pf Inj) 0.5 mg Q2H PRN IV PUSH pain 4-10 09/10/16 18:45 09/14/16 08:39 Sertraline HCl (Zoloft) 50 mg DAILY PO 09/11/16 09:00 09/14/16 08:37 Morphine Sulfate 15 mg 15 mg Q8HR PO 09/10/16 17:00 09/14/16 05:37 Sodium Chloride (NS 1000 ml Inj) 1,000 ml @ 42 mls/hr [id number] IV 09/11/16 15:00 09/12/16 18:16 Calcium Carbonate (Tums Chew) 500 mg DAILY PO 09/12/16 22:00 09/14/16 08:38 Methylprednisolone Sodium Succinate (SoluMEDROL INJ) 60 mg Q6H IV PUSH 09/13/16 20:00 09/15/16 14:25 Famotidine (Pepcid) 20 mg BID PO 09/14/16 09:00 09/14/16 08:38 Sodium Chloride (NS Flush) DAILY IVF 09/15/16 09:00 09/15/16 09:14 Heparin Sodium (Porcine) (Heparin Central Flush) DAILY IV FLUSH 09/15/16 09:00 09/15/16 09:18 Miscellaneous Information Patient in critical care unit? Ass... [id number] .XX 09/14/16 22:15 09/14/16 22:15 Chlorhexidine Gluconate (Chlorhexidine 2% Cloth) 3 pack DAILY@04 TOPICAL 09/15/16 04:00 09/19/16 04:01 09/15/16 00:55 Morphine Sulfate (Morphine Inj) 4 mg Q1H PRN IV PUSH Any pain. 09/14/16 22:45 09/15/16 16:57 Lorazepam (Ativan Inj) 1 mg Q4H PRN IV PUSH severe anxiety 09/14/16 22:45 09/15/16 07:52 Objective Remarks GENERAL: On Bipap and very weak. SKIN: Warm and dry. HEAD: Normocephalic. EYES: No scleral icterus. No injection or drainage. NECK: Supple, trachea midline. No JVD or lymphadenopathy. LYMPHATIC: No adenopathy. CARDIOVASCULAR: Regular rate and rhythm without murmurs. RESPIRATORY: On Bipap, diffused rhonchi. GASTROINTESTINAL: Abdomen soft, non-tender, nondistended. EXTREMITIES: No cyanosis, or edema. MUSCULOSKELETAL: Adequate muscle tone. NEUROLOGICAL: No obvious focal deficit. Awake, alert, and oriented x3. ABle to answer questions appropriately. PSYCHIATRIC: Appropriate mood and affect; insight and judgment normal. Assessment/Plan Problem List: (1) Lung mass Status: Acute Plan: -- 7.1x8.1 suprahilar/mediastinal mass with adenopathy. complete occlusion of right upper lobe pulmonary artery due to the mass/ adenopathy and there was also partial compromise of the right lower lobe pulmonary artery with multiple lung nodules characteristic of metastatic disease. -- Pt has an appt for outpatient PET-CT on 09/16. -- Suspect small cell lung cancer CT abdomen and pelvis also showed L4 vertebral lesion. ?liver mets. --hypercalcemia was treated with Zometa recently. (2) Bone pain Status: Acute Plan: --on Fentanyl TD+ Oramorph + Dilaudid, pain is controlled. --bone scan shows bony mets to thoracic spine and ribs (3) Thrombocytopenia Status: Acute Plan: --likely due to underlying liver disease --monitor, no transfusion necessary at this time. No bleeding noted. (4) Neck pain and neuropathy Status: Acute Plan: -- had a brain MRI which did not show any metastatic disease. --MRI of the cervical spine showed moderate thecal sac stenosis at C5 and C6. findings suspicious for metastatic disease involving C2 lamina on the left side. Pain controlled. (5) Shortness of breath Status: Acute Plan: Due to large right lung mass. Developed respiratory distress rapidly. CXR showed new bilateral consolidation. Transferred to ICU overnight and placed on Bipap. Assessment 55 y/o female with lung mass admitted with increased SOB. h/o Hypertension, Hypothyroidism, Anxiety, Hepatitis C. Extensive discussion with pt and her son Robert. Her other son is coming from [place] and will arrive later today. When I saw them, the path is not available yet. CXR showed new infiltrate and pt is declining rapidly. I suspect she has mets small cell lung cancer and she may have developed lymphangitic spread. I told them her prognosis is very poor. her performance status is very poor and I do not think she can tolerate palliative chemo. I told them that her cancer is not curable. Chemotx may prolong her survival by few months at best but I do not think she can tolerate it. When her son ask her if she wants chemotx, pt shook her head "No". We also talked about living will and she does not want intubation or CPR. We discussed hospice support and they agree. I have talked to the nursing staff. Make pt DNR and consult hospice. Plan 1. Consult hospice 2. DNR 3. Await final path. Bjorn Frey MD Sep 15, 2016 17:20
[2016-09-15] MEDS: METOPROLOL TARTRATE 5 MG/5 ML VIAL IV PUSH SCH ×2 (18:26→23:04)
[2016-09-16] VITALS (8 sets, daily range): BP systolic 116; BP diastolic 67; PULSE 111–115; RESP 26–30; TEMP 99.5; O2SAT 93–96
[2016-09-16] MEDS: methylPREDNISolone SOD SUCC 125 MG/2 ML VIAL IV PUSH SCH ×2 (02:01→08:00)
[2016-09-16] MEDS: LORazepam 2 MG/ML VIAL IV PUSH PRN (02:02)
[2016-09-16] MEDS: MORPHINE SULFATE 4 MG/ML INJ IV PUSH PRN (02:02)
[2016-09-16] MEDS: LORazepam 2 MG/ML VIAL IV SCH ×3 (03:13→12:21)
[2016-09-16] MEDS: MORPHINE SULFATE 4 MG/ML INJ IV PRN ×2 (03:13→04:07)
[2016-09-16] MEDS ORDERED: MORPHINE SULFATE 8 MG/ML INJ IV PUSH PRN (03:15)
[2016-09-16] MEDS ORDERED: BISACODYL 10 MG SUPP RECTAL PRN (03:15)
[2016-09-16] MEDS ORDERED: LORazepam 2 MG/ML VIAL IV PRN (03:15)
[2016-09-16] MEDS ORDERED: ACETAMINOPHEN 650 MG SUPP RECTAL PRN (03:15)
[2016-09-16] MEDS: CHLORHEXIDINE GLUCONATE 2 % 1 PACK (2 CLOTHS)(taper/protocol) TOPICAL SCH (03:25)
[2016-09-16] MEDS: MORPHINE SULFATE 15 MG CONTROLLED RELEASE TAB PO SCH (03:26)
[2016-09-16] MEDS: METOPROLOL TARTRATE 5 MG/5 ML VIAL IV PUSH SCH (03:26)
[2016-09-16] MEDS: LEVOTHYROXINE SODIUM 50 MCG TAB PO SCH (03:27)
[2016-09-16] MEDS: LORazepam 2 MG/ML VIAL IV PRN ×2 (04:06→04:55)
[2016-09-16] MEDS: SODIUM CHLORIDE 0.9% FLUSH 10 ML FLUSH IVF SCH (09:00)
[2016-09-16] MEDS: SODIUM CHLORIDE 0.9% FLUSH 10 ML FLUSH IV FLUSH SCH (09:00)
[2016-09-16] MEDS: FAMOTIDINE 20 MG TAB PO SCH (09:00)
[2016-09-16] MEDS: CALCIUM CARBONATE 500 MG CHEWABLE TAB PO SCH (09:00)
[2016-09-16] MEDS: SERTRALINE HCL 50 MG TAB PO SCH (09:00)
[2016-09-16] MEDS: HYDROCHLOROTHIAZIDE 12.5 MG CAP PO SCH (09:00)
[2016-09-16] MEDS: LISINOPRIL 20 MG TAB PO SCH (09:00)
--- NOTE | 2016-09-16 09:37 | HHI.PR ---
Subjective Remarks Remains on BiPAP Sedated Sats 93-95% Family at bedside, son spoke to hospice yesterday He's very concerned about removing BiPAP as patient was agitated yesterday when it was removed, he is asking whether mask will remain on while she is on hospice States that he wants her to be comfortable and not to feel like she is suffocating Objective Objective Results - Vital Signs Date Time Temp Pulse Resp B/P Pulse Ox O2 Delivery O2 Flow Rate FiO2 09/16/16 09:05 96 BiPAP 100 09/16/16 09:02 95 100 09/16/16 06:03 30 09/16/16 06:00 115 09/16/16 04:50 94 100 09/16/16 04:00 Bi-Pap 99 09/16/16 04:00 111 09/16/16 04:00 99.5 114 26 116/67 93 09/16/16 02:39 20 09/16/16 01:09 93 100 09/16/16 00:00 99.5 111 26 116/67 93 09/16/16 00:00 Bi-Pap 99 09/15/16 20:00 Bi-Pap 100 09/15/16 20:00 99.5 111 26 112/68 93 09/15/16 20:00 111 09/15/16 19:20 91 100 09/15/16 16:55 94 100 09/15/16 16:00 Bi-Pap 100 09/15/16 16:00 99.5 122 26 159/86 93 09/15/16 12:00 Bi-Pap 100 09/15/16 12:00 98.5 119 36 126/77 94 09/15/16 11:40 95 100 I/O 09/15/16 09/15/16 09/15/16 09/16/16 09/16/16 09/16/16 07:00 15:00 23:00 07:00 15:00 23:00 Intake Total 240 ml 653 ml Output Total 2000 ml 400 ml 575 ml Balance -1760 ml -400 ml 78 ml Intake Oral 240 ml IV Total 653 ml Output Urine Total 2000 ml 400 ml 575 ml # Bowel Movements 0 Result Diagram: 09/15/16 0420 09/14/16 0507 ROS General: Other (12 point review of systems unable to obtain) Physical Exam Physical Exam GENERAL: This is a well-nourished female, less tachypneic SKIN: No rashes, ecchymoses or lesions. Cool and dry. HEAD: Atraumatic. Normocephalic. No temporal or scalp tenderness. EYES: Pupils equal round and reactive. ENT: Nose without bleeding, purulent drainage or septal hematoma. Throat without erythema, tonsillar hypertrophy or exudate. Uvula midline. Airway patent. NECK: Trachea midline. Right supraclavicular lymphadenopathy. Supple, nontender , no meningeal signs. CARDIOVASCULAR: Regular rate and rhythm without murmurs, gallops, or rubs. RESPIRATORY: On bipap, diminished, coarse GASTROINTESTINAL: Abdomen soft, non-tender, nondistended. No hepato-splenomegaly , or palpable masses. No guarding. MUSCULOSKELETAL: Extremities without clubbing, cyanosis, or edema. No joint tenderness, effusion, or edema noted. No calf tenderness. Negative Homans sign bilaterally. NEUROLOGICAL: obtunded Urinary Catheter: Yes Harper insert reason: End of Life Vascular Central Line Catheter: No A/P Diagnosis: (1) Respiratory failure (2) COPD (chronic obstructive pulmonary disease) (3) Lung mass Plan: Poss. lung cancer with mets to bone. (4) Shortness of breath (5) Thrombocytopenia (6) Hx of hepatitis C (7) HTN (hypertension) Assessment and Plan 55-year-old female with recent findings of lung mass with possible bone metastases, presented to emergency room with shortness of breath, wheezing, increasing back pain and leg weakness. COPD exacerbation Resp. failure 09/14, tx to ICU overnight -[facility] consult input appreciated -Continue BIPAP for now Continue with IV Solu-Medrol 60 mg IV every 6. -Continue with scheduled DuoNeb's and when necessary treatments as well Lung mass with bone metastases. Patient was undergoing workup, had not started chemotherapy. Small cell lung cancer, with mets to bone, poss. liver -Appreciate oncology input -S/P lung bx 09/12, bx results show small cell carcinoma -PAC placed 09/14 -plan was for palliative chemo however due to recent events family has decided to proceed with hospice and DNR status. Back pain, secondary to bone metastases. Also complaining of neck pain with radiculopathy to left hand. Bilaterally leg weakness, left greater than right. -Pain management --Cervical spine MRI with poss. mets Thrombocytopenia Monitor her platelets Elevated AST and alkaline phosphatase, history hepatitis C recently completed treatment. -Avoid hepatotoxic agents Hypocalcemia, was Hypercalcemic on Zometa -monitor BMP Hypothyroid Continued on home medications Hypertension, stable Continued on home medications Tobacco abuse, recently quit -Tobacco abuse counseling SCDs and Lovenox for DVT prophylaxis PPI for GI prophylaxis Poor prognosis, family has decided to transition to hospice services. Family met with hospice yesterday, patient remains on BiPAP at family's request. We will wait for hospice for further recommendations DNR status Continue with supportive care D/W RN D/W Dr. La D/W pt's son and family This patient was seen by myself and , this note is written on his behalf Problem Qualifiers (1) Respiratory failure: Qualified Code: J96.01 - Acute respiratory failure with hypoxia (2) COPD (chronic obstructive pulmonary disease): Qualified Code: J44.1 - Chronic obstructive pulmonary disease with acute exacerbation (3) HTN (hypertension): Qualified Code: I10 - Essential hypertension Eliza Aguilera Sep 16, 2016 09:37
[2016-09-16] MEDS ORDERED: MORPHINE SULFATE 8 MG/ML INJ IV PUSH SCH (10:45)
[2016-09-16] MEDS ORDERED: LORazepam 2 MG/ML VIAL IV SCH (10:45)
--- NOTE | 2016-09-16 16:42 | PD.ONC.PN ---
Subjective Subjective Remarks Late entry. Pt on bipap but not responsive. 2sons and daughter in law at the bedside. Objective Data Date Time Temp Pulse Resp B/P Pulse Ox O2 Delivery O2 Flow Rate FiO2 09/16/16 14:00 Bi-Pap 09/16/16 12:00 Bi-Pap 100 09/16/16 10:00 Bi-Pap 100 09/16/16 09:05 96 BiPAP 100 09/16/16 09:02 95 100 09/16/16 08:00 Bi-Pap 100 09/16/16 06:03 30 09/16/16 06:00 115 09/16/16 04:50 94 100 09/16/16 04:00 Bi-Pap 99 09/16/16 04:00 111 09/16/16 04:00 99.5 114 26 116/67 93 09/16/16 02:39 20 09/16/16 01:09 93 100 09/16/16 00:00 99.5 111 26 116/67 93 09/16/16 00:00 Bi-Pap 99 09/15/16 20:00 Bi-Pap 100 09/15/16 20:00 99.5 111 26 112/68 93 09/15/16 20:00 111 09/15/16 19:20 91 100 09/15/16 16:55 94 100 09/16/16 09/16/16 09/16/16 07:00 15:00 23:00 Intake Total 653 ml Output Total 575 ml Balance 78 ml Result Diagram: 09/15/16 0420 09/14/16 0507 Objective Remarks GENERAL: Not responsive but appear comfortable. SKIN: Warm and dry. HEAD: Normocephalic. EYES: No scleral icterus. No injection or drainage. NECK: Supple, trachea midline. No JVD or lymphadenopathy. LYMPHATIC: No adenopathy. CARDIOVASCULAR: Regular rate and rhythm without murmurs. RESPIRATORY: On Bipap GASTROINTESTINAL: Abdomen soft, non-tender, nondistended. EXTREMITIES: No cyanosis, or edema. MUSCULOSKELETAL: Adequate muscle tone. NEUROLOGICAL: Not responsive. Assessment/Plan Problem List: (1) Lung mass Status: Acute Plan: -- 7.1x8.1 suprahilar/mediastinal mass with adenopathy. complete occlusion of right upper lobe pulmonary artery due to the mass/ adenopathy and there was also partial compromise of the right lower lobe pulmonary artery with multiple lung nodules characteristic of metastatic disease. -- Pt has an appt for outpatient PET-CT on 09/16. -- Suspect small cell lung cancer CT abdomen and pelvis also showed L4 vertebral lesion. ?liver mets. --hypercalcemia was treated with Zometa recently. 09/16 Discussed path with her children. They have many questions which ere answered. They understand that is imminent and wants to continue comfort care. (2) Bone pain Status: Acute Plan: --on Fentanyl TD+ Oramorph + Dilaudid, pain is controlled. --bone scan shows bony mets to thoracic spine and ribs (3) Thrombocytopenia Status: Acute Plan: --likely due to underlying liver disease --monitor, no transfusion necessary at this time. No bleeding noted. (4) Neck pain and neuropathy Status: Acute Plan: -- had a brain MRI which did not show any metastatic disease. --MRI of the cervical spine showed moderate thecal sac stenosis at C5 and C6. findings suspicious for metastatic disease involving C2 lamina on the left side. Pain controlled. (5) Shortness of breath Status: Acute Plan: Due to large right lung mass. Developed respiratory distress rapidly. CXR showed new bilateral consolidation. Transferred to ICU overnight and placed on Bipap. Assessment 55 y/o female with lung mass admitted with increased SOB. h/o Hypertension, Hypothyroidism, Anxiety, Hepatitis C. Extensive discussion with pt and her son Robert. Her other son is coming from [place] and will arrive later today. When I saw them, the path is not available yet. CXR showed new infiltrate and pt is declining rapidly. I suspect she has mets small cell lung cancer and she may have developed lymphangitic spread. I told them her prognosis is very poor. her performance status is very poor and I do not think she can tolerate palliative chemo. I told them that her cancer is not curable. Chemotx may prolong her survival by few months at best but I do not think she can tolerate it. When her son ask her if she wants chemotx, pt shook her head "No". We also talked about living will and she does not want intubation or CPR. We discussed hospice support and they agree. I have talked to the nursing staff. Make pt DNR and consult hospice. Plan 1. Comfort care. 2. DNR 3. Extensive discussion with family regarding the pathology. Bjorn Frey MD Sep 16, 2016 16:42
--- NOTE | 2016-09-23 17:03 | HHI.DS ---
Discharge Summary Admission Date Sep 09, 2016 at 15:18 Discharge Date: Sep 16, 2016 Admitting Diagnosis lung cancer, copd exacerbation (1) Respiratory failure (2) COPD (chronic obstructive pulmonary disease) (3) Lung mass (4) Shortness of breath (5) Thrombocytopenia (6) Hx of hepatitis C (7) HTN (hypertension) Procedures -S/P lung bx 09/12, -PAC placed 09/14 Imaging Last Impressions PICC Line Insertion 09/14/16 0000 Signed Impressions: Service Date/Time: Wednesday, September 14, 2016 15:40 - CONCLUSION: 1. Uncomplicated central venous Power PICC line placement. Please note, the patient was initially scheduled for port placement to facilitate chemotherapy administration. However, patient presented to the IR department with severe shortness of breath and tachypnea. Discuss situation with Dr Bjorn Frey and we agreed that a PICC line would suffice for now until the patient was clinically more stable. 2. The PICC line can be used immediately. Alan Gates MD Chest X-Ray 09/14/16 0000 Signed Impressions: Service Date/Time: Wednesday, September 14, 2016 21:36 - CONCLUSION: Bilateral infiltrates have developed. Please see above. New right arm PICC, tip at atriocaval junction. Chema Persaud MD SPECT Scan-Bone Nuclear Medicine 09/12/16 0000 Signed Impressions: Service Date/Time: Monday, September 12, 2016 13:15 - CONCLUSION: 1. Findings of osseous metastatic disease to the thoracic spine and ribs. MRI is recommended for further evaluation if clinically indicated. Saul Salomon MD Lung Biopsy CT 09/12/16 0000 Signed Impressions: Service Date/Time: Monday, September 12, 2016 15:48 - CONCLUSION: Uncomplicated CT guided biopsy of large right hilar/lung mass. Kingsley Vidal MD Abdomen CT 09/10/16 0000 Signed Impressions: Service Date/Time: Saturday, September 10, 2016 21:43 - CONCLUSION: 1. Abnormal appearance of the liver with a enlarged left lobe and diffuse heterogeneous density throughout the entire liver. This examination is performed without intravenous contrast and, therefore, is nonspecific with regard to differentiating between hepatocellular disease, metastatic disease, and cirrhosis. 2. Mild upper abdominal adenopathy. 3. 1.3 cm nodule left diaphragmatic crura. 4. 2 hyperdense lesions in the left kidney; hyperdense cyst versus solid lesion cannot be differentiated on noncontrast study. 5. Compression fracture of L2 superior endplate with 30%% loss of height and one fracture line extending to the central vertebral body. No involvement of the posterior cortex no retropulsed fragments. Kingsley Vu MD CT Angiography 09/09/16 0824 Signed Impressions: Service Date/Time: Friday, September 09, 2016 09:34 - CONCLUSION: 1. There is no evidence for PE for technique. 2. Complete occlusion of the right upper lobe pulmonary artery due to extrinsic mass effect from metastatic adenopathy. There is also slight compromise to the right lower lobe pulmonary artery. 3. Multiple lung nodules characteristic of metastatic disease. 4. Extensive metastatic adenopathy within the mediastinum, right supraclavicular area and possible small metastatic lymph nodes in the gastroesophageal junction and upper abdomen. 5. Right hilar mass difficult to separate from the above-mentioned adenopathy may be the site of the patient's primary malignancy. Dimitri Mills MD Cervical Spine MRI 09/09/16 0000 Signed Impressions: Service Date/Time: Friday, September 09, 2016 15:35 - CONCLUSION: 1. Moderate thecal sac stenosis C5-6. 2. Findings are suspicious for metastatic disease particularly involving the C2 lamina on the left side and possibly within some of the vertebrae as well. Dimitri Mills MD Brain MRI 09/09/16 0000 Signed Impressions: Service Date/Time: Friday, September 09, 2016 15:35 - CONCLUSION: Negative exam. No findings of metastatic disease. Alan Gates MD Hospital Course This is an unfortunate 55-year-old female with significant past medical history of tobacco abuse, hepatitis C recently treated, hypothyroid, hypertension. Patient has been recently diagnosed with a lung mass, with possible bone metastases. Approximately a month ago, she started to complain of low back pain when she went to the emergency room had a CT scan done that showed a large mediastinal mass and right supraclavicular mass as well as a L4 lesion. She followed up with Dr. Frey who has ordered further workup to include lymph node biopsy, PET scan and brain MRI. Patient states she has been having back pain, radiating to legs associated with weakness. Since yesterday, the pain has become severe, she is not sleeping well. She's had very little appetite has had some nausea and vomiting. She recently quit smoking and possibly has underlying COPD. She's noted increased wheezing with cough but very little sputum. She's had chills but no fever. Patient presented to the emergency room for further evaluation. In the emergency room, patient was evaluated, laboratory workup was completed. CBC was remarkable for thrombocytopenia, platelets 73. BMP remarkable for mild hyponatremia, sodium 133, potassium 3.4. AST 348, ALT 34, alkaline phosphatase was 65. Total creatinine kinase A 72. Natruretic peptide 32. A CTA was completed that showed no evidence of PE however complete occlusion of right upper lobe pulmonary artery due to extrinsic mass effect from metastatic adenopathy. There is also slight compromise to the right lower lobe pulmonary artery. Multiple lung nodules characteristics of metastatic disease. Extensive metastatic adenopathy within the mediastinum, right supraclavicular area and possibly small metastatic lymph nodes in the GE junction and upper abdomen. Right heel or mass difficult to separate from the above-mentioned adenopathy may be the site of the patient's primary malignancy. A chest x-ray didn't show any appreciable change. Patient was given DuoNeb's and IV steroids. She's now examined, she is complaining of pain, is very anxious. She is complaining of pain radiating from her left axilla done to the left hand and has some numbness and tingling of the left hand pinky finger and fourth finger. Indicates that sometimes his symptoms are worse when she turns her head to the right. She denies any recent injury. She has some mild neck discomfort. She was noted with weakness to the lower extremities, right leg is weaker than left. She had been having trouble walking around. Patient was admitted for further evaluation and treatment. (1) Respiratory failure (2) COPD (chronic obstructive pulmonary disease) (3) Lung mass Plan: Poss. lung cancer with mets to bone. (4) Shortness of breath (5) Thrombocytopenia (6) Hx of hepatitis C (7) HTN (hypertension) During the course of the hospitalization, the following took place. 55-year-old female with recent findings of lung mass with possible bone metastases, presented to emergency room with shortness of breath, wheezing, increasing back pain and leg weakness. Admitted to oncology floor, consulted oncology, pulmonology, palliative care and [facility]. Hospitalization complicated by resp. failure. COPD exacerbation Resp. failure 09/14, tx to ICU overnight -[facility] consult input appreciated -Put on BIPAP Given IV Solu-Medrol 60 mg IV every 6. -Scheduled DuoNeb's and when necessary treatments as well -pt. did not improved, resp. declining. Pt. made DNR. Hospice requested. Lung mass with bone metastases. Patient was undergoing workup, had not started chemotherapy. Small cell lung cancer, with mets to bone, poss. liver -Appreciate oncology input -S/P lung bx 09/12, bx results showed small cell carcinoma -PAC placed 09/14 -plan was for palliative chemo however due to declined, pt. not appropriate to receive. Pt and family agreed with hospice. Back pain, secondary to bone metastases. Also complaining of neck pain with radiculopathy to left hand. Bilaterally leg weakness, left greater than right. -Pain management ordered --Cervical spine MRI done, showed poss. mets Thrombocytopenia Monitored her platelets Elevated AST and alkaline phosphatase, history hepatitis C recently completed treatment. -Avoided hepatotoxic agents Hypocalcemia, was Hypercalcemic on Zometa -monitor BMP Hypothyroid Continued on home medications Hypertension, stable Continued on home medications Tobacco abuse, recently quit -Tobacco abuse counseling SCDs and Lovenox for DVT prophylaxis PPI for GI prophylaxis Poor prognosis, family decided to transition to hospice services. Family met with hospice pt. transferred to hospice services, she while in hospital. Pt Condition on Discharge: Deteriorating Discharge Disposition: Hospice/Med Facility Eliza Aguilera September 23, 2016 17:03
== END 2016-09-16 14:15 | disposition expired | DRG 180 ==
LOC: NEPC 08:04 → NEDA 10:48 → HOCA 13:18 → OBSVTOIN 15:18 → HIMN 09-14 21:50
PROVIDERS: ADMIT Specialist; ATTEND Family Medicine Hospice and Palliative Medicine
PROC: 0BBK3ZX Excision of Right Lung, Percutaneous Approach, Diagnostic (ICD-10-PCS; principal; 2016-09-12)
PROC: 02HV33Z Insertion of Infusion Device into Superior Vena Cava, Percutaneous Approach (ICD-10-PCS; 2016-09-14)
PROC: 30233R1 Transfusion of Nonautologous Platelets into Peripheral Vein, Percutaneous Approach (ICD-10-PCS; 2016-09-14)
PROC: 5A09457 Assistance with Respiratory Ventilation, 24-96 Consecutive Hours, Continuous Positive Airway Pressure (ICD-10-PCS; 2016-09-14)
DX: C34.91 Malignant neoplasm of unspecified part of right bronchus or lung (principal); J96.01 Acute respiratory failure with hypoxia; J96.02 Acute respiratory failure with hypercapnia; C79.51 Secondary malignant neoplasm of bone; E87.2 Acidosis; E83.51 Hypocalcemia; E87.1 Hypo-osmolality and hyponatremia; D69.6 Thrombocytopenia, unspecified; J44.1 Chronic obstructive pulmonary disease with (acute) exacerbation; E03.9 Hypothyroidism, unspecified; E87.5 Hyperkalemia; E87.6 Hypokalemia; I10 Essential (primary) hypertension; F41.9 Anxiety disorder, unspecified; F17.210 Nicotine dependence, cigarettes, uncomplicated; G89.3 Neoplasm related pain (acute) (chronic); R59.0 Localized enlarged lymph nodes; J98.01 Acute bronchospasm; R63.0 Anorexia; Z66 Do not resuscitate; Z51.5 Encounter for palliative care; Z86.19 Personal history of other infectious and parasitic diseases; Z88.0 Allergy status to penicillin
CPT/HCPCS: 32405; 36430; 36568; 36600; 70553; 71010; 71275; 72156; 74150; 76937; 77001; 77012; 78306; 78320; 78399; 80048; 80053; 80076; 82550; 82552; 82805; 83735; 83880; 84155; 84484; 85007; 85027; 85610; 85730; 86900; 86901; 87641; 88305; 88341; 88342; 93005; 94002; 94003; 94640; 94664; 96374; A9503; A9579; C1751; C1788; J0610; J1170; J1642; J1650; J1940; J2060; J2250; J2270; J2405; J2930; J3010; J3370; J7030; J7050; P9035; Q9963; Q9967